=== PATIENT | male | born 1940 | race Caucasian/White ===

== ENCOUNTER → 2023-11-29 11:17 | Outpatient (REF) | payer OTHER, SELFPAY | LOC: DHCBC HW 11:17 | PROVIDERS: ATTENDING PHYSICIAN Internal Medicine Cardiovascular Disease; FAMILY PHYSICIAN Family Medicine | DX: I35.0 Nonrheumatic aortic (valve) stenosis (principal) | CPT/HCPCS: 93306 ==

== ENCOUNTER → 2023-12-14 13:48 | Outpatient (REF) | payer OTHER, SELFPAY | LOC: PAVMRI 13:48 | PROVIDERS: ATTENDING PHYSICIAN Student in an Organized Health Care Education/Training Program; FAMILY PHYSICIAN Family Medicine | DX: M54.14 Radiculopathy, thoracic region (principal) | CPT/HCPCS: 72146 ==

== ENCOUNTER 2024-03-04 10:53 | Inpatient (IN) | payer OTHER, SELFPAY ==
[2024-03-01] VITALS (11 sets, daily range): BP systolic 133–192; BP diastolic 67–109; BMI 28.3
--- NOTE | 2024-03-01 11:06 | ED.GENMED ---
History of Present Illness
General
Chief Complaint: Chest Pain
Source: patient and spouse
Time Seen by Provider: 03/01/24 10:54
Travel History
Have you had any contact with someone who has COVID-19?: No
Do you have any symptoms of coronavirus? Fever > 100 degrees, chills, cough, shortness of breath, sore throat, loss of taste or smell, muscle aches, or headache?: No
History of Present Illness
History of Present Illness:
83-year-old male with past medical history of atrial fibrillation, hypertension, hyperlipidemia, CAD, diabetes presenting the emergency department for evaluation of chest discomfort/pain and shortness of breath that have been ongoing intermittently
since yesterday, symptoms do seem to be worse with exertion with patient stating that yesterday evening he was walking from his downstairs to upstairs and by the time he got to the top of the stairs noticed some left-sided chest discomfort and
shortness of breath. Symptoms resolved after a few minutes. This morning patient was making breakfast when the pain started again but this time on the right side of his chest so patient decided to take his blood pressure and noticed the systolic
was greater than 200. Patient did take his glimepiride and Eliquis this morning and then came to the ER for further evaluation. Patient follows with muck miner Dr. Victor but states has not seen him yet since the long term of his previous
muck miner at that practice. Patient and note that patient was recommended to have a aortic valve replaced but patient states that he has been putting this off for unknown reasons.
Past History
Past History
ED Past Medical History: CAD, GERD (Hiatal hernia), HTN, Hypercholesterolemia, NIDDM, Valvular disease and Other (Salmonella, ulcers)
ED Past Surgical History: Cardiac (CABG 1993, angioplasty with stents October 2004. Cardiac catheter 2008, medical management), Cholecystectomy (Laparoscopic cholecystectomy December 2010) and Other
Social History
Tobacco: Non-smoker
Alcohol: None
Drug: None
Personal:
Living: with family
Family History
Family History: Diabetes and Hypertension; Negative Sudden
Review of Systems
Review of Systems
All Other Systems: ROS reviewed and negative except as documented in HPI and ROS
Phy Exam
Physical Exam
Physical Exam:
GENERAL: Alert , in no apparent distress
EYE: conjunctiva clear
NECK: Supple
ENT: o/p clr, mmm.
CARDIAC: Regular rate and rhythm, harsh systolic murmur at the right second intercostal space
LUNGS: Clear breath sounds bilaterally, no acute respiratory distress, no wheezes/rales/rhonchi
NEUROLOGICAL: Alert and oriented
SKIN: Warm and dry, skin intact.
MUSCULOSKELETAL: well perfused. No edema
PSYCH: Normal and appropriate interaction.
Scores
Heart Failure Risk
Heart Failure Risk Score: Not Applicable
Heart Score for Chest Pain Patients
STEMI patient?: Not applicable
Withdrawal Assessment of Alcohol
Withdrawal Assessment Completed?: Not applicable
Course
Orders/Labs/Results
Orders:
Orders
03/01/24 10:00
ECG [Electrocardiogram (*1)] Urgent
Reason for Study: Chest Pain
EKG- Treatment ONCE
03/01/24 10:57
Electrocardiogram (*1) Urgent
Reason for Study: Chest Pain
Cardiac Monitoring- Treatment ONCE
EKG- Treatment ONCE
IV Insert/Care/Rem.- Treatment PRN
03/01/24 10:58
Basic Metabolic Panel Urgent
Complete Blood Count/With Diff Urgent
NT-proBNP Urgent
Comment: ADD ON
Troponin I Urgent
03/01/24 11:05
Add On- LAB Urgent
Tests Added?: BNP
CR Chest - 2 Views Urgent
Comment:
Reason For Exam: chest pain, SOB
03/01/24 13:14
Admit/Transfer Patient As Directed
Co-Sign Provider:
Level of Care: Observation services
Assign to:: Telemetry
Physician / Group: Pratik
Diagnosis: SOB
Reason for Telemetry: Chest Pain syndromes
Date to Stop Telemetry: 03/03/24
Time to Stop Telemetry: 11:00
03/01/24 20:00
Apixaban [Eliquis] 2.5 mg PO BID
03/03/24 11:00
DC Protocol for Telemetry ONCE
Abnormal Lab Results
03/01/24
10:58
MCH 31.2 H pg
(27.0-31.0)
Sodium 134 L mmol/L
(135-145)
Glucose 176 H mg/dl
(70-99)
03/01/24 10:58
03/01/24 10:58
Vital Signs
Initial and Last Documented VS:
Initial Vital Signs
Temp Pulse Resp BP Pulse Ox
97.8 F 70 20 192/95 97
03/01/24 10:04 03/01/24 10:04 03/01/24 10:04 03/01/24 10:04 03/01/24 10:04
Last Documented Vital Signs
Temp Pulse Resp BP Pulse Ox
97.7 F 73 18 184/87 97
03/01/24 14:24 03/01/24 14:24 03/01/24 14:24 03/01/24 14:24 03/01/24 14:24
MDM/Problems Addressed
Differential Diagnosis Includes:
ACS, valvular dysfunction, CHF, hypertensive urgency
MDM/Problems Addressed:
83-year-old male presenting to the emergency department for evaluation of waxing and waning chest discomfort and shortness of breath. Last night patient states he was most concerned when he went up his stairs and symptoms got worse but resolved
after a few minutes. Symptoms again restarted this morning with patient noting his blood pressure was significantly elevated. Blood pressure is improved here however still elevated. Patient states that presently he is asymptomatic. Patient with
known CAD and multiple previous stents. There is also known aortic insufficiency with patient being recommended to have a TAVR but has put this off. I suspect 1 of these 2 diagnoses are the likely cause of patient's symptoms today.
Chronic conditions affecting care: CAD and Other (Valvular disease)
Acute Exacerbation and/or Progression of Chronic Illness: CAD and Other (Valvular disease)
*Pulse Oximetry
Patient hypoxic: no
*EKG
Interpreted by ED Provider?: Yes
Comparison EKG: changes noted
Heart Rate: 66
Rate: normal
Rhythm: sinus
[place]: normal axis
Ischemia: T-wave inversion (lateral leads)
*Production [place] Interpretation
Rate: normal
Rhythm: sinus
*Critical Care Note
Total Time (30-74mins, 75-104mins- exclusive of procedures): Not Applicable
Data Reviewed
Review of Other/Old Records Reveals: Labs, Records and Discharge Summary
Source: patient, records and spouse
Comment
Comment:
Patient had echocardiogram in November of this year which showed normal left ventricular systolic function, left ventricular EF 55%. Severe aortic stenosis and overall unchanged from echocardiogram done in April 2023.
Patient Management
Discussion with other providers: Hospitalist and Road Traffic Controller
Escalation/DeEscalation of care consider admission/obs:
Patient's labs and imaging are mostly reassuring however given his age combined with his past medical history I do feel it would be best for patient to be admitted for further testing and evaluation with cardiology. Cardiology team is aware and
will consult. Hospitalist team accepts for continued evaluation and treatment.
ED Attending Note
-
Portions of this chart may have been created with voice recognition software.� Occasional wrong word or��sound alike� substitutions may have occurred due to the inherent limitations of voice recognition software.
Discharge Plan
Departure
Patient Disposition: Admit
Date of Disposition: 03/01/24
Time of Disposition: 11:57
Presentation/result/management discussed w/ accepting MD/DO: Hospitalist
Discharge Problem:
Chest pain, Shortness of breath, Aortic stenosis
Interventions
Interventions:
*Risk Screen - Suicide Last Done: 03/01/24 14:09
*General Assessment Last Done: 03/01/24 14:09
*Neglect/Abuse Screening Last Done: 03/01/24 14:09
ED- Fall Risk Assessment Last Done: 03/01/24 14:09
*ED COVID-19 Vaccine History Last Done: 03/01/24 10:04
*Nursing Disposition Last Done: 03/01/24 14:09
ED- Cardiac Assessment Last Done: 03/01/24 11:24
[2024-03-01 11:10] LABS: % Basophils 0.9 % (0-2); % Eosinophils 2.8 % (0-6); % Immature Granulocytes 0.3 % (0-0.5); % Lymphocytes 29.5 % (20.5-51.1); % Monocytes 7.8 % (1.7-9.3); % Neutrophils 58.7 % (42.2-75.2); Absolute Basophils 0.1 10^3/uL (0-0.2); Absolute Eosinophils 0.2 10^3/uL (0-0.7); Absolute Monocytes 0.5 10^3/uL (0.1-0.6); Hematocrit 44.1 % (39.0-52.0); Hemoglobin 15.6 g/dL (13.0-18.0); Mean Corp Hgb Conc. 35.4 g/dL (33.0-37.0); Mean Corpuscular Hgb 31.2 pg (27.0-31.0); Mean Corpuscular Volume 88.2 fL (80.0-94.0); Mean Platelet Volume 9.6 fL (7.4-10.4); Nucleated Red Blood Cells % 0 % (-); Platelet Count 192 10^3/uL (130-400); Red Cell Dist. Width 12.6 % (11.5-14.5); White Blood Cell Count 6.8 10^3/uL (4.8-10.8)
[2024-03-01 11:26] LABS: Blood Urea Nitrogen 20 mg/dl (9-20); Calcium 9.9 mg/dl (8.4-10.2); Carbon Dioxide 23 mmol/L (22-30); Chloride 102 mmol/L (98-107); Glucose 176 mg/dl (70-99); Sodium 134 mmol/L (135-145); eGFR 59.26
[2024-03-01 11:34] LABS: NT-proBNP 390 pg/ml; Troponin I < 0.012 ng/ml
--- NOTE | 2024-03-01 13:58 | HPS.HSE ---
Family Physician
-
Family Physician: Linwood Johnson
Chief Complaint
-
Chest pain and shortness of breath
History of Present Illness
Very pleasant 83-year-old male who lives independently at home with his with known history of the severe aortic stenosis, hypertension, coronary artery disease status post CABG and 4 stents with 3 of them already been blocked according to the
patient, presented to the hospital as he has been having chest pain and shortness of breath since yesterday evening.
He said he was in the basement where the zahira working on his air conditioning and after he made it back to the top level from this basement he felt tightness in the center on the left side of the chest and associated with shortness of breath and the
pain was radiating to the left shoulder, was moderate in nature he took sublingual nitro and eventually pain subsided, he did not feel completely back to normal throughout yesterday and evening hours before goes to bed he took another sublingual
nitro but he was able to sleep well, this morning he woke up as usual but shortly after he had breakfast and developed severe chest pain this time central and to the right side, moderate in nature associated with shortness of breath worse with any
kind of exertion, lasted quite some time he took sublingual nitro. He measured his blood pressure initially was 210/100 that he sat down he calm himself down and he rechecked a 15-minute later this time 1-2 therefore he woke up his to
come to the hospital.
He said he follow the instruction of his spinning mule operator if it anytime develop chest pain or shortness of breath because of the severe aortic stenosis need to come to the emergency room immediately.
He had an echo done in November 29 and in the process to do another 1 in March by then there will be a decided to do TAVR.
Currently about mild pain in the center of the chest with no shortness of breath, his pressure was elevated earlier but now is 165/77, admits usually runs systolic 1 40-1 60 over diastolic around 70 despite taking his medication.
No fever or chill or cough or congestion, no sick contacts or recent travel.
Given Nitropaste.
Medical History
Past Medical History
Past Medical History: Reports Other
Additional Past Medical History:
Past medical history Reviewed:
Coronary artery disease status post CABG in for stent with blockage of the 3 stent according to the patient
Diabetes mellitus
Hypertension
Severe arctic stenosis
Diverticulosis
Hiatal hernia
Degenerative joint disease
GERD
Basals cell cancer of skin
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
Atrial fibrillation anticoagulated with Eliquis.
Surgical history:
Multiple cardiac cath and stenting
Coronary artery bypass graft
Right inguinal hernia repair
Left nephrectomy
Basal cell carcinoma removal
Social history: Lives at home with a , no smoking alcohol use still independent and plays golf.
Family history: Positive for diabetes, hypertension, colon cancer and coronary artery disease
Past Surgical History: Reports Other
Social History
Alcohol: Other
Family History
Family History: Other
Allergies / Home Medications
Allergies reflects when Allergies were last updated in [facility].
Home Medications with original date entered in [facility]
Allergy/Medication List:
Allergies
Allergy/AdvReac Type Severity Reaction Status Date / Time
acetaminophen Allergy sick Verified 03/01/24 10:05
feeling in
stomach
and chest,
rapid
heart rate
NSAIDS (Non-Steroidal Allergy Pharmacy Verified 03/01/24 10:05
Anti-Inflamma to Review
[Nsaids]
Home Medications
amlodipine 5 mg tablet 5 mg PO DAILY 01/13/11
atenolol 25 mg tablet 37.5 mg PO DAILY 03/11/11
alprazolam 0.25 mg tablet 0.25 mg PO TID 05/05/11
isosorbide mononitrate 60 mg tablet,extended release 24 hr 60 mg PO DAILY 07/17/17
simvastatin 20 mg tablet 20 mg PO HS 07/17/17
apixaban 2.5 mg tablet (Eliquis) 2.5 mg PO BID #60 tabs 09/13/21
aspirin 81 mg tablet,delayed release 81 mg PO DAILY #1 tab 09/13/21
pantoprazole 40 mg tablet,delayed release 40 mg PO DAILY #90 tabs 09/13/21
glimepiride 2 mg tablet 2 mg PO BID 03/01/24
lisinopril 5 mg tablet 5 mg PO BID 03/01/24
nitroglycerin 0.4 mg sublingual tablet 0.4 mg sublingual [id number] PRN chest pain 03/01/24
vitamins A,C,C-qhbf-rljouj 2,148 mcg-113 mg-45 mg-17.4 mg tablet (PreserVision AREDS) 1 tab PO BID 03/01/24
Review of Systems
-
A 12 point ROS was completed and negative except as noted: Yes
Physical Exam
Vital Signs
Vital Signs
Temp Pulse Resp BP Pulse Ox
97.8 F 64 16 179/109 97
03/01/24 10:04 03/01/24 12:00 03/01/24 12:00 03/01/24 11:00 03/01/24 10:04
physical exam:
General: Awake, alert and oriented x3, not in distress and holds appropriate conversation.
HEENT: No active discharge, ecchymosis or bruising, moist lips, tongue and mucous membrane.
Eyes: No discharge or red conjunctiva, no nystagmus, pupils are reactive and equal
Neck:Supple, no JVD no bruit no goiter.
Respiratory: Normal AP contour and diameter, normal chest wall movement, normal respiratory effort, no respiratory distress,
Lungs: Good air entry bilaterally, no wheezing or rhonchi, no rales or crackles
Heart: S1, S2 regular, normal rate, systolic murmur 2-3/6 in upper borders and radiating to neck bilaterally, mild lower extremities edema
Gastrointestinal: Positive bowel sounds, soft, nontender, no guarding or rigidity or organomegaly
Musculoskeletal: , no chest wall abnormality or tenderness. All joints and extremities have good range of motion, no muscle tenderness or any joint swelling or tenderness.
Extremities: pitting edema, good peripheral pulses, good range of motion
Skin: Warm and dry, no ulceration, normal color.
Neurological: Awake, alert and oriented x3, cranial nerve II-XII grossly intact, speech clear and comprehensive, good muscle tone, normal sensory and motor function
Psychiatric: Normal mood, normal thought and judgment, normal affect,
Physical Exam
General: Other
Laboratory Results
-
03/01/24 10:58
03/01/24 10:58
Laboratory Results
Total Bilirubin Cancelled 03/01/24 10:58
AST Cancelled 03/01/24 10:58
ALT Cancelled 03/01/24 10:58
Alkaline Phosphatase Cancelled 03/01/24 10:58
Troponin I < 0.012 ng/ml 03/01/24 10:58
Chest x-ray: Showed no acute cardiopulmonary abnormalities.
EKG: Showed normal sinus rhythm rate around 66, IL 194, QTc 413, evidence of the prior anterior infarct otherwise no acute abnormalities
Data Reviewed
-
Diagnostic Radiology: Image Personally Visualized and interpreted and Discussed with Patient
Medical Tests (Nuc Med, Echo, EKG etc): Image Personally Visualized and interpreted and Discussed with Patient
Lab Data: Labs Reviewed by me
Old Records: Reviewed
Impression/Plan
-
IMPRESSION:
83-year-old male with known history of coronary artery disease, A-fib and severe aortic stenosis presented to the hospital after he been having intermittent chest pain and shortness of breath, with known history of the severe AAS this is chronic
concerning symptom also notes his blood pressure has been elevated.
Chest pain and shortness of breath, with known history of aortic stenosis angina related to aortic stenosis need to be considered
The possibility could be related to hypertensive urgency
Severe aortic stenosis
Mild hyponatremia sodium 134
Diabetes mellitus
A-fib
Coronary artery disease status post CABG and stenting
PLAN:
Cardiac monitoring
Cardiology consult
Follow the cardiac enzyme
Add hydralazine as needed for systolic more than 170 and diastolic more than 100
Give a dose of his blood pressure medications specially amlodipine and atenolol today suspicion was on the high side
Nitropaste every 6 hours
You are anticoagulated with Eliquis, will continue Eliquis we will hold off transition to heparin unless his troponin goes up otherwise defer to cardiology.
Continue aspirin and statin
Monitor blood sugar continue diabetic medication.
Recheck labs
Low threshold condition on discharge: Awake, alert and oriented x3, answer question properly, able to make own decision and take care of activities of daily living, speech clear and comprehensive, continent of the bowel and bladder, ambulate without
program assistant, goes home where lives with the family independently. Transfer to [facility]
All discussed with the patient in detail expressed understanding
CODE STATUS is full code
DVT prophylaxis Eliquis
[2024-03-01 14:45] LABS: Glycohemoglobin (HgbA1c) 7.8 % (4.0-5.6)
[2024-03-01] MEDS: TENORMIN 37.5 MG PO (14:47)
[2024-03-01] MEDS: NORVASC 5 MG PO ×2 (14:48→16:56)
[2024-03-01 15:18] LABS: Troponin I < 0.012 ng/ml
--- NOTE | 2024-03-01 15:33 | CON.CAR ---
Consultation
Consultation Request
Date/Time Consultation Requested: 03/01/24
Date/Time Consultation Performed: 03/01/24
Requesting Provider: Dr. Christie
Performing Provider: Dr. Basurto
Reason for Consultation: CP/SOB
Medical History
-
Chief Complaint: Chest Pain
History of Present Illness:
83-year-old male (previously known to Dr. Bender; transitioning care to Dr. Victor) with severe aortic stenosis, coronary artery disease status-close previous CABG (1993) with multiple subsequent stenting, hypertension, hyperlipidemia, CKD, and
diabetes presenting with progressive chest pain and shortness of breath. The patient states that over the past few days, he has been developing progressive midsternal chest pain, left arm pain with exertion, in addition to dyspnea with exertion.
The patient has had severe aortic stenosis for years, but now appears to be symptomatic.
Past Medical History
Past Medical History: CAD, HTN, Hypercholesterolemia, NIDDM and Renal Failure
Past Surgical History: Cardiac (CABG, recurrent PCI) and Other (Hernia repair)
Social History
Tobacco: Former Smoker
Drug: None
Personal:
Living: With Family
Employment: Retired
Family History
Family History: Reviewed & Not Pertinent
Allergies / Home Medications
Allergy/AdvReac Type Severity Reaction Status Date / Time
acetaminophen Allergy sick Verified 03/01/24 10:05
feeling in
stomach
and chest,
rapid
heart rate
NSAIDS (Non-Steroidal Allergy Pharmacy Verified 03/01/24 10:05
Anti-Inflamma to Review
[Nsaids]
�Medication �Instructions �Recorded �Confirmed �Type
amlodipine 5 mg tablet 5 mg PO DAILY 01/13/11 03/01/24 History
atenolol 25 mg tablet 37.5 mg PO DAILY 03/11/11 03/01/24 History
alprazolam 0.25 mg tablet 0.25 mg PO TID 05/05/11 03/01/24 History
isosorbide mononitrate 60 mg 60 mg PO DAILY 07/17/17 03/01/24 History
tablet,extended release 24 hr
simvastatin 20 mg tablet 20 mg PO HS 07/17/17 03/01/24 History
apixaban 2.5 mg tablet (Eliquis) 2.5 mg PO BID #60 tabs 09/13/21 03/01/24 Rx
aspirin 81 mg tablet,delayed 81 mg PO DAILY #1 tab 09/13/21 03/01/24 Rx
release
pantoprazole 40 mg tablet,delayed 40 mg PO DAILY #90 tabs 09/13/21 03/01/24 Rx
release
glimepiride 2 mg tablet 2 mg PO BID 03/01/24 03/01/24 History
lisinopril 5 mg tablet 5 mg PO BID 03/01/24 03/01/24 History
nitroglycerin 0.4 mg sublingual 0.4 mg sublingual [id number] PRN 03/01/24 03/01/24 History
tablet chest pain
vitamins A,C,Z-iifp-goneys 2,148 1 tab PO BID 03/01/24 03/01/24 History
mcg-113 mg-45 mg-17.4 mg tablet
(PreserVision AREDS)
Review of Systems
-
History Source: Patient
All other systems: Negative unless noted
Physical Exam
Vital Signs
Temp Pulse Resp BP Pulse Ox
97.5 F 70 16 151/83 96
03/01/24 15:27 03/01/24 15:27 03/01/24 15:27 03/01/24 15:27 03/01/24 15:27
Lab Results
03/01/24 10:58
03/01/24 10:58
Troponin I Cancelled 03/01/24 20:14
Ndp-B-Qtlfcvpluxp Pept 390 pg/ml 03/01/24 10:58
Physical Exam
General: No Apparent Distress and Comfortable
HEENT: Normocephalic and Anicteric
Respiratory: Clear
Cardiac: Murmur (4/6 systolic), Peripheral Edema (Trivial) and Other (Normal S1, absent S2)
Breast: N/A
GI: Soft and Non Tender
Rectal: Deferred by Provider
Musculoskeletal: Edema (Trivial)
Skin: Warm and Dry
Neuro: AO x 3
Psych: Calm
Impression / Plan
-
83-year-old male (previously known to Dr. Bender; transitioning care to Dr. Victor) with severe aortic stenosis, coronary artery disease status-close previous CABG (1993) with multiple subsequent stenting, paroxysmal atrial fibrillation (on
Eliquis), hypertension, hyperlipidemia, CKD, NIDDM, and obesity presenting with progressive chest pain and shortness of breath. The patient states that over the past few days, he has been developing progressive midsternal chest pain, left arm pain
with exertion, in addition to dyspnea with exertion. The patient has had severe aortic stenosis for years, but now appears to be symptomatic.
Severe aortic stenosis:
-Now symptomatic.
-Appears to be fairly compensated on examination; will hold off on standing Lasix dose due to underlying renal dysfunction.
-Patient will undergo right and cardiac catheterization on Sunday for coronary and valvular assessment; will likely need TAVR in the very near future.
-NPO after midnight Sunday night.
Coronary artery disease status-close previous CABG (1993) with multiple subsequent stenting:
-Patient will undergo cardiac catheterization as above for evaluation of chest pain.
-Continue aspirin, beta-chay, and statin.
Hypertension:
-Blood pressure was elevated on admission.
-Will hold isosorbide mononitrate for now, as this will worsen aortic transvalvular gradients (by decreasing afterload); hydralazine should be avoided, as it does the same.
-Will increase amlodipine to 10 mg daily.
-Increase atenolol to 50 mg daily, if needed for bladder blood pressure control.
Paroxysmal atrial fibrillation (on Eliquis):
-Will hold Eliquis for cardiac catheterization.
Hyperlipidemia:
-Continue atorvastatin.
CKD:
-Creatinine currently 1.2; monitor renal function.
NIDDM:
-Hemoglobin A1c 7.8%
-Management as per primary team.
Data Reviewed
-
EKG: Report Reviewed by me (Sinus rhythm)
Medical Tests (Nuc Med, Echo etc): Report Reviewed by me (Transthoracic echocardiogram (11/29/2023): LVEF 55%, moderate concentric LVH; severe aortic stenosis, peak/mean gradients 67/40 mmHg, ARNAUD 1.0 cm2.)
Labs: Labs Reviewed by me
Old Records: Reviewed (Cardiology office visit 10/10/2023)
[2024-03-01] MEDS: NITRO-BID 0.5 INCH TOPICAL (16:56)
[2024-03-01] MEDS: AMARYL 2 MG PO (16:56)
[2024-03-01] MEDS: XANAX 0.25 MG PO ×2 (16:57→21:53)
[2024-03-01 17:59] LABS: Troponin I < 0.012 ng/ml
[2024-03-01] MEDS: NOVOLOG FLEXPEN-MODERATE RESISTANCE SC (20:18)
[2024-03-01] MEDS: ZESTRIL 5 MG PO (20:24)
[2024-03-01 21:44] LABS: Glucose - Point of Care 129 mg/dl (70-99)
[2024-03-01] MEDS: LIPITOR 10 MG PO (21:53)
[2024-03-02] VITALS (7 sets, daily range): BP systolic 130–168; BP diastolic 64–75
[2024-03-02] MEDS: NITRO-BID 0.5 INCH TOPICAL ×5 (00:30→22:51)
[2024-03-02 05:54] LABS: Hematocrit 43.7 % (39.0-52.0); Hemoglobin 15.4 g/dL (13.0-18.0); Mean Corp Hgb Conc. 35.2 g/dL (33.0-37.0); Mean Corpuscular Hgb 30.9 pg (27.0-31.0); Mean Corpuscular Volume 87.6 fL (80.0-94.0); Mean Platelet Volume 9.6 fL (7.4-10.4); Platelet Count 192 10^3/uL (130-400); Red Blood Cell Count 4.99 10^6/uL (4.70-6.10); Red Cell Dist. Width 12.6 % (11.5-14.5); White Blood Cell Count 7.5 10^3/uL (4.8-10.8)
[2024-03-02 06:22] LABS: Blood Urea Nitrogen 20 mg/dl (9-20); Calcium 9.9 mg/dl (8.4-10.2); Carbon Dioxide 25 mmol/L (22-30); Chloride 101 mmol/L (98-107); Estimated Creatinine Clearance 39 ml/min; Glucose 109 mg/dl (70-99); Potassium 4.5 mmol/L (3.5-5.1); Sodium 136 mmol/L (135-145); eGFR 53.84
--- NOTE | 2024-03-02 08:19 | W.PN.HOSP.TC ---
Today's Communication/Plan
-
Awaiting left heart right heart cath in a.m.
N.p.o. after midnight
Would hold glimepiride continuous scale coverage as needed
Try to avoid vasodilators in setting of his severe AAS
Assessment / Plan
Assessment / Plan
83-year-old male who lives independently at home with his with known history of the severe aortic stenosis, hypertension, coronary artery disease status post CABG and 4 stents with 3 of them already been blocked according to the patient,
presented to the hospital as he has been having chest pain and shortness of breath since yesterday evening.
He said he was in the basement where the zahira working on his air conditioning and after he made it back to the top level from this basement he felt tightness in the center on the left side of the chest and associated with shortness of breath and the
pain was radiating to the left shoulder, was moderate in nature he took sublingual nitro and eventually pain subsided, he did not feel completely back to normal throughout yesterday and evening hours before goes to bed he took another sublingual
nitro but he was able to sleep well, this morning he woke up as usual but shortly after he had breakfast and developed severe chest pain this time central and to the right side, moderate in nature associated with shortness of breath worse with any
kind of exertion, lasted quite some time he took sublingual nitro. He measured his blood pressure initially was 210/100 that he sat down he calm himself down and he rechecked a 15-minute later this time 1-2 therefore he woke up his to
come to the hospital.
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
He had an echo done in November 29 and in the process to do another 1 in March by then there will be a decided to do TAVR.
Currently about mild pain in the center of the chest with no shortness of breath, his pressure was elevated earlier but now is 165/77, admits usually runs systolic 1 40-1 60 over diastolic around 70 despite taking his medication.
No fever or chill or cough or congestion, no sick contacts or recent travel.
Given Nitropaste.
Chest pain and shortness of breath, with known history of severe aortic stenosis angina related to aortic stenosis need to be considered
The possibility could be related to hypertensive urgency
Severe aortic stenosis
Mild hyponatremia sodium 134
Diabetes mellitus
A-fib presently in sinus rhythm
Coronary artery disease status post CABG and stenting Xs 3
PLAN:
Cardiac monitoring
Follow the cardiac enzyme have remained within normal limits and proBNP at only 300
Avoid vasodilators for BP management as will decrease afterload in setting of severe AAS
Eliquis will be held in anticipation of cardiac intervention Sunday
Continue aspirin and statin
Monitor blood sugar continue diabetic medication./Would now hold glimepiride in preparation for cardiac invention tomorrow and sliding scale coverage to continue
-Will be n.p.o. after midnight in preparation for right and left heart cath
-Cardiology consultation with CBC recently had transition of care from Dr. Weinberg to Dr. Villegas
Recheck labs
Low threshold condition on discharge: Awake, alert and oriented x3, answer question properly, able to make own decision and take care of activities of daily living, speech clear and comprehensive, continent of the bowel and bladder, ambulate without
planning assistant, goes home where lives with the family independently.
All discussed with the patient in detail expressed understanding
CODE STATUS is full code
DVT prophylaxis Eliquis
Anticipated Discharge: Within 24 hours
Subjective/Interval History
-
Date of Service: March 02, 2024
Patient did well overnight although roommate kept him up most the night and his roommate was eventually transferred to ICU no recurrent chest pain has been ambulating
Objective Data
-
Labs:
Laboratory Results
03/02/24
05:22
WBC 7.5
Hgb 15.4
Hct 43.7
Plt Count 192
Sodium 136
Potassium 4.5
Chloride 101
Carbon Dioxide 25
BUN 20
Creatinine 1.3
Glucose 109 H
Calcium 9.9
Vital Signs:
Vital Signs
Temp Pulse Resp BP Pulse Ox
97.7 F 61 20 143/71 93
03/02/24 03:58 03/02/24 05:39 03/02/24 03:58 03/02/24 05:39 03/02/24 03:58
I&O
03/01/24 03/02/24 03/03/24
06:59 06:59 06:59
Output Total 240 / 240
Balance -240 / -240
Review of Systems
-
History Source: Patient
Respiratory: Reports No Symptoms
Cardiac: Reports No Symptoms
Abdomen/GI: Reports No Symptoms
Physical Exam
-
General: Well Developed
HEENT: Normocephalic
Respiratory: Clear to Auscultation
Cardiac: Regular Rhythm, S1/S2 and Murmur
Psych: Calm
Data Reviewed
-
Total Time Spent with Patient (in minutes): 56
Labs: Labs Reviewed by me (A1c hemoglobin 7,8/proBNP of only 390 troponin was normal/blood sugar 129)
[2024-03-02 08:23] LABS: Glucose - Point of Care 147 mg/dl (70-99)
[2024-03-02] MEDS: NOVOLOG FLEXPEN-MODERATE RESISTANCE SC (08:23)
[2024-03-02] MEDS: TENORMIN 37.5 MG PO (08:24)
[2024-03-02] MEDS: AMARYL 2 MG PO (08:26)
[2024-03-02] MEDS: PROTONIX 40 MG PO (08:26)
[2024-03-02] MEDS: NORVASC 10 MG PO (08:26)
[2024-03-02] MEDS: XANAX 0.25 MG PO ×3 (08:26→22:48)
[2024-03-02] MEDS: ASPIR LOW (ENTERIC COATED) 81 MG PO (08:26)
[2024-03-02] MEDS: ZESTRIL 5 MG PO ×2 (08:26→20:36)
--- NOTE | 2024-03-02 10:53 | CM ---
Reviewed chart, met with patient to obtain information for assessment. Patient stated that he lives with his in a single one story home with a loft, in [place]. There is one step to enter.
Patient described himself as independent with his ADLs, personal care, dressing and bathing, toileting and ambulation. He denied use of an assistive device or any DME in general. 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
drives so he can get to appointments and does his own shopping. Patient shared that he plays golf with friends twice a week.
Patient has never had VN services. He has not been to a SNF nor does he want to or feel he needs to go. Patient described his as supportive and stated that he has been for 63 years.
Patient feels that he is at his baseline level of functioning and would like to return home when stable for discharge.
Obs letter signed, explained, and is on chart.
Plan: Case management will continue to follow and assist with discharge planning. Patient will return home at discharge with his .
[2024-03-02 12:03] LABS: Glucose - Point of Care 246 mg/dl (70-99)
[2024-03-02] MEDS: NOVOLOG FLEXPEN-MODERATE RESISTANCE 3 UNITS SC (12:22)
--- NOTE | 2024-03-02 13:32 | W.PN.CD ---
Today's Communication / Plan
-
-Patient will undergo right and cardiac catheterization tomorrow for coronary and valvular assessment; will likely need TAVR in the very near future.
-NPO after midnight tonight.
-Holding Eliquis for cardiac catheterization.
Impression / Plan
-
83-year-old male (previously known to Dr. Bender; transitioning care to Dr. Victor) with severe aortic stenosis, coronary artery disease status-close previous CABG (1993) with multiple subsequent stenting, paroxysmal atrial fibrillation (on
Eliquis), hypertension, hyperlipidemia, CKD, NIDDM, and obesity presenting with progressive chest pain and shortness of breath. The patient states that over the past few days, he has been developing progressive midsternal chest pain, left arm pain
with exertion, in addition to dyspnea with exertion. The patient has had severe aortic stenosis for years, but now appears to be symptomatic.
Symptomatic severe aortic stenosis:
-Fairly compensated on examination currently; holding off on standing Lasix dose due to underlying renal dysfunction.
-Patient will undergo right and cardiac catheterization tomorrow for coronary and valvular assessment; will likely need TAVR in the very near future.
-NPO after midnight tonight.
Coronary artery disease status-close previous CABG (1993) with multiple subsequent stenting:
-Patient will undergo cardiac catheterization as above for evaluation of chest pain.
-Continue aspirin, beta-chay, and statin.
Hypertension:
-Blood pressure was elevated on admission.
-Holding isosorbide mononitrate for now, as this will worsen aortic transvalvular gradients (by decreasing afterload); hydralazine should be avoided, as it does the same.
-Amlodipine was increased yesterday to 10 mg daily .
-Increase atenolol to 50 mg daily, if needed for bladder blood pressure control.
Paroxysmal atrial fibrillation (on Eliquis):
-Holding Eliquis for cardiac catheterization.
Hyperlipidemia:
-Continue atorvastatin.
CKD:
-Creatinine currently 1.3; continue to monitor renal function.
NIDDM:
-Hemoglobin A1c 7.8%
-Management as per primary team.
Physical Exam
Vital Signs/Labs
Vital Signs
Temp Pulse Resp BP Pulse Ox
97.8 F 63 18 168/71 96
03/02/24 11:00 03/02/24 12:19 03/02/24 11:00 03/02/24 12:19 03/02/24 11:00
03/01/24 03/02/24 03/03/24
06:59 06:59 06:59
Actual Weight 81.902 kg
03/02/24 05:22
03/02/24 05:22
03/01/24
10:58
Way-Q-Pqgzsnjijuk Pept 390
LAB Results
03/01/24 03/01/24 03/01/24
10:58 14:42 14:42
Troponin I < 0.012 Cancelled < 0.012
03/01/24 03/01/24 03/01/24
14:42 14:42 17:25
Troponin I Cancelled Cancelled < 0.012
03/01/24
20:14
Troponin I Cancelled
Physical Exam
Constitutional: No acute distress and Comfortable
EENT: Anicteric
Cardiovascular: Rhythm & rate is regular, Pedal edema present (Trivial), Systolic murmur present (4/6) and Other (Normal S1, absent S2)
Respiratory: Respiratory effort normal and Lungs clear to auscul.
GI: Soft
Neuro/Psych: AO x 3
Other: Skin (Warm, dry, intact)
Data Reviewed
-
Date of Service: March 02, 2024
EKG: Tracing Personally Visualized and interpreted (Telemetry: Sinus rhythm)
Labs: Labs Reviewed by me
[2024-03-02 16:31] LABS: Glucose - Point of Care 192 mg/dl (70-99)
[2024-03-02] MEDS: NOVOLOG FLEXPEN-MODERATE RESISTANCE 1 UNITS SC (17:58)
[2024-03-02 21:53] LABS: Glucose - Point of Care 218 mg/dl (70-99)
[2024-03-02] MEDS: LIPITOR 10 MG PO (22:48)
[2024-03-03] VITALS (13 sets, daily range): BP systolic 140–189; BP diastolic 64–79; BMI 28.0
[2024-03-03] MEDS: NITRO-BID 0.5 INCH TOPICAL (05:45)
[2024-03-03 07:06] LABS: Glucose - Point of Care 167 mg/dl (70-99)
[2024-03-03] MEDS: TENORMIN 37.5 MG PO (07:35)
[2024-03-03] MEDS: NORVASC 10 MG PO (07:35)
[2024-03-03] MEDS: PROTONIX 40 MG PO (07:35)
[2024-03-03] MEDS: ZESTRIL 5 MG PO (07:35)
[2024-03-03] MEDS: ASPIR LOW (ENTERIC COATED) 81 MG PO (07:35)
[2024-03-03] MEDS: XANAX 0.25 MG PO ×3 (07:35→21:15)
--- NOTE | 2024-03-03 08:37 | W.PN.CD ---
Today's Communication / Plan
-
Cardiac catheterization today for chest pain, known CAD and TAVR workup.
Impression / Plan
-
Impression/Plan: 83 y/o male with CAD s/p CABG (patent MCKEE to LAD and SVG to OM2 with PCI in 09/13/2021, occluded SVG to RCA, occluded SVG to Diagonal), PAF on apixaban, HTN, HLD, solitary kidney (baseline Cr around 1.3) and severe aortic valve
stenosis admitted with chest pain/shortness in breath.
#Symptomatic severe aortic stenosis
-Chronic, progressive.
-Mean gradient 40 mmHg on TTE from November 2023.
-Starting TAVR workup.
#Coronary artery disease
-Status-close previous CABG (MCKEE to LAD, SVG to Diagonal, SVG to OM2, SVG to RCA, 1993).
-Prior cardiac catheterization showed occlusion of the SVG-Diag, SVG-RCA grafts (prior PCIs), patient MCKEE to LAD and a new, 80% lesion in the proxinal SVG to OM2, s/p Xience [place] 3.25 x 12 (09/13/2021).
-Patient will undergo cardiac catheterization for evaluation of chest pain and as a preamble to TAVR.
-Continue aspirin, beta-chay, and statin.
#Hypertension:
-Blood pressure was elevated on admission (190's).
-Amlodipine increased to 10 mg daily.
-We will adjust medications post cardiac catheterization (lisinopril).
#Paroxysmal atrial fibrillation
-Chronic, stable.
-Rate control with atenlolol.
-CHADS2-Vasc = 5 (HTN, Age x2, DM, Vascular Disease).
-Holding apixaban for cardiac catheterization.
#Hyperlipidemia:
-Chronic, stable.
-Goal LDL < 55.
-Continue atorvastatin.
#CKD/solitary kidney
-S/P left nephrectomy.
-Creatinine currently 1.3; continue to monitor renal function.
#NIDDM:
-Chronic, stable.
-Hemoglobin A1c 7.8%
-Management as per primary team.
Subjective/Interval History:
Hypertensive to 140-150's.
Feels well.
DATA:
TTE, 11/29/2023:
CONCLUSIONS
Normal left ventricular systolic function. Left ventricular ejection fraction
is 55%.
Moderate concentric left ventricular hypertrophy.
Severe aortic stenosis.
No significant change since the prior study of April 2023.
Cardiac Catheterization/PCI, 09/13/2021:
CORONARY ANGIOGRAPHY
Dominance: Right
Left Main: Normal
LAD: The LAD is occluded distal to the takeoff of the first septal veterinary virologist. There are bridging collaterals to a moderate-sized diagonal branch. The left internal mammary graft supplies the mid and distal LAD and there is mild noncritical
disease distal to the touchdown site
Circumflex: The circumflex is 50% proximal to mid stenosis. OM1 is small and severely diseased. OM 2 is occluded at its origin. OM 2 fills via a patent but diseased vein graft. There is one small left posterolateral branch coming off the
circumflex and there are left to left collaterals to the distal RCA territory
RCA: The RCA is proximally occluded. There are bridging collaterals to the distal RCA territory which is diffusely and severely diseased.
Bypass grafts:
1. The MCKEE-LAD graft is widely patent with excellent runoff
2. The SVG-RCA is known to be occluded and was not injected
3. The SVG-diagonal branch is known to be occluded and was not injected
4. The SVG-OM2 is patent with focal 80% proximal stenosis and 30% mid stenosis. Compared with the prior study from 2015, the 80% proximal lesion is new and the 30% mid lesion is similar in appearance
CONCLUSIONS
1: Moderate aortic stenosis with mean gradient 24 mmHg.
2: Systemic hypertension.
3. Severe [place] triple-vessel CAD as described with patent MCKEE-LAD and patent SVG-OM2 bypass grafts.
4. Compared to 2016, there is new 80% stenosis in the proximal segment of the SVG-OM2 which was successfully stented with a 3.25 x 12 Xience GRETEL postdilated with a 3.5 mm noncompliant balloon.
5. Recommend femoral approach for future procedures as intervening on the SVG-OM2 was technically challenging from the left radial artery approach.
Physical Exam
Vital Signs/Labs
Vital Signs
Temp Pulse Resp BP Pulse Ox
36.4 C 56 16 151/72 97
03/03/24 07:30 03/03/24 07:30 03/03/24 07:30 03/03/24 07:30 03/03/24 07:30
03/01/24 03/02/24 03/03/24
11:59 11:59 11:59
Actual Weight 81.902 kg 81.102 kg
03/02/24 05:22
03/02/24 05:22
03/01/24
10:58
Mza-R-Wllddxjvdrk Pept 390
LAB Results
03/01/24 03/01/24 03/01/24
10:58 14:42 14:42
Troponin I < 0.012 Cancelled < 0.012
03/01/24 03/01/24 03/01/24
14:42 14:42 17:25
Troponin I Cancelled Cancelled < 0.012
03/01/24
20:14
Troponin I Cancelled
Physical Exam
Constitutional: No acute distress and Comfortable
EENT: Anicteric and Moist mucous membranes
Cardiovascular: Rhythm & rate is regular, Pedal edema is absent, JVD pressure is normal, Systolic murmur present and S1S2 is normal
Respiratory: Respiratory effort normal, Lungs clear to auscul., Wheeze Absent, Crackles Absent and Rhonchi Absent
GI: Soft, Distention absent, Flat, Non tender and Normal bowel sounds
Neuro/Psych: AO x 3
Data Reviewed
-
Date of Service: March 03, 2024
Medical Decision Making: Reviewed Test Results, Independent Historian Assessment and Test Interpretation
EKG: Tracing Personally Visualized and interpreted and Report Reviewed by me
Echo: Tracing Personally Visualized and interpreted and Report Reviewed by me
X-Ray/CT/US/MRI/NUC/PET: Image Personally Visualized and interpreted and Report Reviewed by me
Medical Tests (PFT, Pathology etc): Image Personally Visualized and interpreted and Report Reviewed by me
Labs: Labs Reviewed by me
[2024-03-03] MEDS: NOVOLOG FLEXPEN-MODERATE RESISTANCE SC ×2 (09:03→11:18)
--- NOTE | 2024-03-03 09:45 | ITS.CL.CATH ---
Terminal Press Operator - Catheterization
Cardiac Catheterization
Procedure Report:
CARDIAC CATHETERIZATION REPORT
Date of Procedure: 03/03/2024
Referring: Keagan Basurto M.D.
Indication: Severe aortic valve stenosis.
PROCEDURE:
1. Right heart catheterization.
2. Coronary angiography.
3. Bypass angiography.
ACCESS:
6 [place] left radial artery.
5 [place] right antecubital vein.
CATHETERS:
1. 5 [place] balloon wedge.
2. 5 [place] TY.
3. 5 [place] JL 4.
4. 5 [place] JR4.
HEMODYNAMIC DATA
Weight (kg): 81.1
AO (s/d/x mmHg): 158/62/109
LV (s/x mmHg): Not obtained.
PCWP (a/v/x mmHg): 17/18/13
PA (s/d/x mmHg): 33/15/21
RV (s/x mmHg): 33/8
RA (a/v/x mmHg): 10/08/
SVC SvO2 (%): 68.7
PA SvO2 (%): 67.9
SaO2 (%): 94.6
Hbg (g/dL): 15.3
CO (L/min): 3.84
CI (L/min/m2): 1.99
TPG (mmHg): 8
PVR ([place] Units): 2.08
SVR (dynes*seconds*cm^-5): 2082
AVO2 Diff (Volume %): 5.56
AV gradient (x, mmHg): Not obtained.
AV area (cm2): Not obtained.
LEFT VENTRICULOGRAPHY: Not performed.
CORONARY ANGIOGRAPHY
Dominance: Right.
Left Main: Normal size, bifurcating vessel. The vessel is diffusely diseased.
LAD: Normal size, densely calcified vessel with diffuse disease in the proximal margin. The vessel is chronically totally occluded after the origin of its first diagonal. The mid and distal vessel supplied by patent MCKEE graft.
Ramus: Congenitally absent.
Circumflex: Normal size, nondominant vessel. There is a 50% lesion in the proximal AV groove vessel. The vessel gives rise to several obtuse marginals, though they appear to be flush occluded. The obtuse marginal supplied by patent vein graft.
RCA: Normal size, dominant vessel. The vessel is chronically totally occluded at the beginning of its midportion, reconstituting in its distal margin, immediately after the crux. The distal vessel is supplied by epicardial collaterals from an
acute marginal.
BYPASS GRAFT ANGIOGRAPHY
MCKEE to LAD: Large size graft with end-to-side anastomosis to the mid LAD. There is no evidence of stenosis or graft degeneration.
SVG to diagonal: Occluded at its origin.
SVG to OM: Normal size graft with end-to-side anastomosis to the obtuse marginal. A patent stent is visible in the proximal graft margin with no evidence of in-stent restenosis.
SVG to RCA: Occluded at its origin.
INTERVENTIONS
None.
Closure Device: Vascular band for the left radial artery, manual pressure for the right antecubital vein.
Radiation dose (mGy): 490.64
DAP (cm2.Gy): 48.6571
Fluoroscopy time (minutes): 7.8
Sedation time (minutes): 13
CONCLUSIONS:
1. Right dominant circulation with a diffusely diseased left main, chronic total occlusion of the mid LAD, 50% lesion in the proximal AV groove circumflex with flush occluded marginals and a chronic total occlusion of the mid RCA, reconstituting
after the crux with epicardial collaterals from the acute marginal.
2. Status post coronary artery bypass grafting with a patent MCKEE to LAD, patent SVG to OM with a patent stent in the proximal margin, occluded SVG to diagonal and occluded SVG to RCA.
3. Top normal to mildly elevated filling pressures (PCWP = 13 mmHg at 81.8 kg).
4. Depressed cardiac function (cardiac index = 1.99 L/min/m�).
5. Severe aortic valve stenosis by echocardiogram.
RECOMMENDATIONS:
1. Expectant management after cardiac catheterization via left radial and right antecubital approach.
2. Limited weight bearing on the left wrist for one week.
3. Initiate TAVR workup.
Copy to: Tulio Victor M.D., Keagan Basurto M.D., Linwood Johsnon M.D.
Jaxon He DO, FACC, FACP
--- NOTE | 2024-03-03 09:49 | W.PN.HOSP.TC ---
Today's Communication/Plan
-
Cardiac cath today
Losartan increased, 1x dose of Enalaprilat given for high blood pressure
Eliquis resumed
TAVR eval
Assessment / Plan
Assessment / Plan
Physical Exam
General: Well Developed
HEENT: Normocephalic
Respiratory: Clear to Auscultation
Cardiac: Regular Rhythm, S1/S2 and Murmur
Abdomen: Positive bowel sounds. Soft and nontender.
Psych: Calm
Assessment/Plan
83-year-old male who lives independently at home with his with known history of the severe aortic stenosis, hypertension, coronary artery disease status post CABG and 4 stents with 3 of them already been blocked according to the patient,
presented to the hospital as he has been having chest pain and shortness of breath. He said he was in the basement where the zahira working on his air conditioning and after he made it back to the top level from this basement he felt tightness in the
center on the left side of the chest and associated with shortness of breath and the pain was radiating to the left shoulder, was moderate in nature he took sublingual nitro and eventually pain subsided, he did not feel completely back to normal
throughout the day before presentation, and evening hours before going to bed he took another sublingual nitro but he was able to sleep well, he then woke up as usual but shortly after, he had breakfast and developed severe chest pain this time
central and to the right side, moderate in nature associated with shortness of breath worse with any kind of exertion, lasted quite some time he took sublingual nitro. He measured his blood pressure and initially it was noted to be 210/100 mmHg.
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
He had an echo done in November 29 and in the process to do another 1 in March by then there will be a decided to do TAVR.
Given Nitropaste.
Symptomatic Severe aortic stenosis
- TAVR evaluation
- Appreciate cardiology
- Cardiac cath took place on March 03, 2024 -- occlusion and disease noted in coronary arteries
- Expectant management after cardiac catheterization via left radial and right antecubital approach.
- Limited weight bearing on the left wrist for one week from March 03, 2024
- Continued TAVR evaluation
Coronary artery disease status post CABG and stenting Xs 3
- Continue aspirin, beta-chay, and statin.
- Cardiac cath for chest pain as well as for anticipation of TAVR
Mild hyponatremia - RESOLVED
Diabetes mellitus
- Insulin Sliding Scale
- Hold home Glimepiride
A-fib presently in sinus rhythm - PAF on apixaban
- Atenolol
- Resume Eliquis (was held for cardiac cath)
Hypertension
Uncontrolled Hypertension
- Blood pressure was high into the 200s prior to arrival
- Amlodipine was increased to 10 mg daily
- Losartan increased to 20 mg daily
- Enalaprilat 1x dose on March 03, 2024
Hyperlipidemia
- Continue Atorvastatin
Chronic Kidney Disease/Solitary kidney (baseline Cr around 1.3)
-S/P left nephrectomy.
-Creatinine currently 1.3; continue to monitor renal function.
CODE STATUS is full code
DVT prophylaxis Eliquis
Anticipated Discharge: > 48 hours
Subjective/Interval History
-
Date of Service: March 03, 2024
Patient was seen and examined. He denied any chest pain, headache, numbness, tingling or any other symptoms or complaints.
Objective Data
-
Vital Signs:
Vital Signs
Temp Pulse Resp BP Pulse Ox
97.6 F 56 16 151/72 97
03/03/24 07:30 03/03/24 07:30 03/03/24 07:30 03/03/24 07:30 03/03/24 07:30
I&O
03/02/24 03/03/2424
06:59 06:59 06:59
Intake Total 1140 / 1140
Output Total 240 / 240
Balance -240 / -240 1140 / 1140
[2024-03-03 11:10] LABS: Glucose - Point of Care 159 mg/dl (70-99)
[2024-03-03] MEDS: NOVOLOG FLEXPEN-MODERATE RESISTANCE 1 UNITS SC (11:15)
--- NOTE | 2024-03-03 12:42 | CONSULT.STRU ---
Consultation
-
Date/Time Consultation Requested: 03/03/2024 1045
Date/Time Consultation Performed: 03/03/2024 1130
Requesting Provider: Dr. Jaxon He
Performing Provider: JENA Nesbitt
Reason for Consultation: Aortic Stenosis/ TAVR evaluation
Patient History
Physicians
Family Physician: Linwood Johnson
Outpatient Material Expeditor: Tulio Victor
Primary Material Expeditor: Tulio Victor
History of Present Illness
Mr. Celis is a very pleasant 83yo male with a significant cardiac history including previous CABG and PCIs as well as a-fib, severe aortic stenosis and hypertension. On Sunday he felt winded after walking up a flight of stairs and had some chest
tightness. He took a NTG SL and it improved. He went to bed but when he woke up in the morning he again experienced chest pain and SOB that became worse with minimal exertion. At that point he had his take him to the ER for evaluation. He has
been following with Dr. Bender for his CAD and with his last echo in 2023. It was notable for EF 55%, PG/M/40, ARNAUD 1.0, trace AI, mild MR. After some discussion, he has realized he has had progressive fatigue, to the point he has given
up golf which he used to play twice a week. This may be related to his . He was scheduled for a follow up echo and appt with Dr. Victor in March. He underwent cardiac cath today with Dr. He which demonstrated right dominant circulation with a
diffusely diseased left main, chronic total occlusion of the mid LAD, 50% lesion in the proximal AV groove circumflex with flush occluded marginals and a chronic total occlusion of the mid RCA, reconstituting after the crux with epicardial
collaterals from the acute marginal. Status post coronary artery bypass grafting with a patent MCKEE to LAD, patent SVG to OM with a patent stent in the proximal margin, occluded SVG to diagonal and occluded SVG to RCA. Top normal to mildly elevated
filling pressures (PCWP = 13 mmHg at 81.8 kg). Depressed cardiac function (cardiac index = 1.99 L/min/m�).
Reviewed the pathophysiology of aortic stenosis with the patient and his . Explained the treatment options of SAVR and TAVR. Explained the TAVR evaluation process including follow up BMP, CT TAVR scan, CT surgery consult and Heart Team
discussion. Provided with script for BMP next week, script and appointment for CT TAVR, Consult appointment with Dr. Wright and a copy of the TAVR education booklet with contact information. Allowed for and answered questions.
Past Medical History
Past Medical History: Angina, Atrial Fib, CAD, Cancer (Urothelial cell carcinoma left ureter/renal pelvis, Basal cell cancer), HERNANDEZ, GERD, HTN, Hypercholesterolemia, NIDDM and Other (hiatal hernia, diverticulosis, DJD)
Past Surgical History
Past Surgical History: Abdominal (right inguinal hernia repair), CABG (1993 [place]- MCKEE to LAD and intact vein graft to OM2. RCA graft and diag grafts now occluded), PCI/Stent, Urological (left nephrectomy) and Other (basal cell surgery)
Dental History
Dentures
Family History
Mother: at Age and Cause of (ovarian CA)
Father: at Age
Social History
Alcohol: None
Drug: None
Tobacco: Former Smoker
Personal:
Living: With Spouse
Employment: Retired
Allergies
Allergy/AdvReac Type Severity Reaction Status Date / Time
acetaminophen Allergy sick Verified 03/01/24 10:05
feeling in
stomach
and chest,
rapid
heart rate
NSAIDS (Non-Steroidal Allergy Pharmacy Verified 03/01/24 10:05
Anti-Inflamma to Review
[Nsaids]
Home Medications
�Medication �Instructions �Recorded �Confirmed �Type
amlodipine 5 mg tablet 5 mg PO DAILY Blood Pressure 01/13/11 03/01/24 History
atenolol 25 mg tablet 37.5 mg PO DAILY Blood Pressure 03/11/11 03/01/24 History
alprazolam 0.25 mg tablet 0.25 mg PO TID ANXIETY 05/05/11 03/01/24 History
isosorbide mononitrate 60 mg 60 mg PO DAILY Blood Pressure 07/17/17 03/01/24 History
tablet,extended release 24 hr
simvastatin 20 mg tablet 20 mg PO HS High Cholesterol 07/17/17 03/01/24 History
apixaban 2.5 mg tablet (Eliquis) 2.5 mg PO BID #60 tabs 09/13/21 03/01/24 Rx
aspirin 81 mg tablet,delayed 81 mg PO DAILY #1 tab 09/13/21 03/01/24 Rx
release
pantoprazole 40 mg tablet,delayed 40 mg PO DAILY #90 tabs 09/13/21 03/01/24 Rx
release
glimepiride 2 mg tablet 2 mg PO BID Diabetes 03/01/24 03/01/24 History
lisinopril 5 mg tablet 5 mg PO BID Blood Pressure 03/01/24 03/01/24 History
nitroglycerin 0.4 mg sublingual 0.4 mg sublingual [id number] PRN 03/01/24 03/01/24 History
tablet chest pain
vitamins A,C,Q-kydu-bzeezk 2,148 1 tab PO BID Supplement 03/01/24 03/01/24 History
mcg-113 mg-45 mg-17.4 mg tablet
(PreserVision AREDS)
STS%
STS %: 4.12%
Review of Systems
-
History Source: Patient and Family
General: Reports Fatigue
HEENT: Reports No Symptoms
Respiratory: Reports HERNANDEZ
Cardiac: Reports Chest Pain and CAD
Abdomen/GI: Reports Reflux
: Reports No Symptoms
Musculoskeletal: Reports No Symptoms
Skin: Reports No Symptoms
Neurological: Reports No Symptoms
Vascular: Reports No Symptoms
Physical Exam
Vital Signs
Temp 97.6 F 03/03/24 07:30
Temp route: Oral 03/03/24 07:30
Pulse 59 03/03/24 12:00
Rhythm: Sinus bradycardia 03/03/24 08:00
With- Sinus bradycardia 03/01/24 17:00
Resp Rate 18 03/03/24 10:15
Blood pressure 181/69 03/03/24 12:00
Blood pressure extremity used: Left calf 03/03/24 12:00
Position: Lying 03/03/24 12:00
MAP (cuff-Alex Monitor) 96 03/01/24 14:00
SaO2 98 03/03/24 12:00
Oxygen Mode of Delivery Room air 03/03/24 12:00
Acceptable pain level during hospitalization? 0 03/01/24 10:04
Can the patient verbally communicate their pain? Yes 03/03/24 08:00
Actual Weight 81.102 kg 03/03/24 06:00
Body Mass Index (BMI) 28.0 03/03/24 06:00
Labs
03/02/24 05:22
03/02/24 05:22
Hemoglobin A1c Cancelled 03/01/24 14:14
Troponin I Cancelled 03/01/24 20:14
Edc-Y-Rjagbkanbhw Pept 390 pg/ml 03/01/24 10:58
Diagnostic Studies
Echocardiogram 11/29/2023
CONCLUSIONS
Normal left ventricular systolic function. Left ventricular ejection fraction
is 55%.
Moderate concentric left ventricular hypertrophy.
Severe aortic stenosis.
No significant change since the prior study of April 2023.
Indications:
Nonrheumatic aortic (valve) stenosis
Rhythm: Sinus
Portable Study: No
Technical Quality: Fair
Contrast: None
BP: 138 / 68
PROCEDURE
A complete Transthoracic Echocardiogram was performed utilizing two-dimensional
evaluation with color flow and spectral Doppler analysis.
FINDINGS
Left Ventricle
Normal left ventricular chamber size. Moderate concentric left ventricular
hypertrophy. Normal left ventricular systolic function. Left ventricular
ejection fraction is 55%. Diastolic function indeterminate.
Right Ventricle
Normal right ventricular size and function.
Left Atrium
Indexed LA volume is within normal range (15-34 mL/m2).
Right Atrium
Normal right atrium.
Mitral Valve
Thickened mitral valve leaflets. Mitral annular calcification. Mild mitral
regurgitation.
Aortic Valve
Trileaflet aortic valve. Calcified aortic valve. Peak/mean gradients across the
aortic valve are 67/40mmHg. Using an LVOT diameter of 2.0cm. The aortic valve
by the Continuity equation is calculated at 1.0cm2. Trace aortic regurgitation.
Severe aortic stenosis.
Tricuspid Valve
Tricuspid valve opens normally. Trace tricuspid regurgitation. Estimated
pulmonary artery pressure of 25-30 mmHg. Assuming a right atrial pressure of 3
mmHg.
Pulmonic Valve
Pulmonic valve opens normally.
Pericardium\\Pleura
Normal pericardium without effusion.
Aorta
The aortic root is of normal size.
Other Finding
The IVC is of normal size and demonstrates normal respiratory variation.
Interatrial septum is intact with no evidence of shunting by color flow
Doppler.
MEASUREMENTS (Male / Female) Normal Values
2D ECHO
LV Diastolic Diameter PLAX 4.9 cm 4.2 - 5.9 / 3.9 - 5.3 cm
LV Systolic Diameter PLAX 4.2 cm
IVS Diastolic Thickness 1.4 cm 0.6 - 1.0 / 0.6 - 0.9 cm
LVPW Diastolic Thickness 1.3 cm 0.6 - 1.0 / 0.6 - 0.9 cm
LV Relative Wall Thickness 0.6
LVOT Diameter 2.0 cm
LV Ejection Fraction MOD BP 54.5 % >= 55 %
LV Stroke Volume MOD BP 48.0 cm3
LV Cardiac Index MOD BP 1625.8 cm3/min
LV Stroke Volume MOD 4C 43.0 cm3
LV Stroke Volume 4C AL 43.7 cm3
LV Stroke Volume MOD 2C 49.0 cm3
LV Stroke Volume 2C AL 51.1 cm3
LA Area 4C View 16.2 cm2 <= 20 cm2
LA Length 4C 4.7 cm
LA Volume 46.0 cm3 18 - 58 / 22 - 52 cm3
LA Volume Index 26.6 cm3/m2 16 - 34 cm3/m2
Ascending Aorta Diameter 3.4 cm
DOPPLER
AV Peak Velocity 408.0 cm/s
AV Peak Gradient 66.6 mmHg
AV Mean Gradient 40.0 mmHg
AV Velocity Time Integral 91.0 cm
LVOT Peak Velocity 130.0 cm/s
LVOT Peak Gradient 6.8 mmHg
LVOT Velocity Time Integral 29.5 cm
LVOT Stroke Volume 92.7 cm3
LVOT Stroke Volume Index 46.9 ml/m2 empty
LVOT Cardiac Index 3139.0 cm3/min\\m2
AV Area Cont Eq vti 1.0 cm2
AV Area Cont Eq pk 1.0 cm2
Mitral E Point Velocity 78.0 cm/s
Mitral A Point Velocity 137.0 cm/s
Mitral E to A Ratio 0.6
LV E' Lateral Velocity 6.1 cm/s
Mitral E to LV E' Lateral Ratio 12.7
LV E' Septal Velocity 7.3 cm/s
Mitral E to LV E' Septal Ratio 10.6
TR Peak Velocity 250.0 cm/s
TR Peak Gradient 25.0 mmHg
Cardiac Cath 03/03/2024
HEMODYNAMIC DATA
Weight (kg):81.1
AO (s/d/x mmHg): 158/62/109
LV (s/x mmHg): Not obtained.
PCWP (a/v/x mmHg): 1718/13
PA (s/d/x mmHg): /
RV (s/x mmHg): 33/8
RA (a/v/x mmHg):
SVC SvO2 (%):68.7
PA SvO2 (%):67.9
SaO2 (%):94.6
Hbg (g/dL):15.3
CO (L/min): 3.84
CI (L/min/m2): 1.99
TPG (mmHg): 8
PVR (D[place] Santos Units): 2.08
SVR (dynes*seconds*cm^-5): 2082
AVO2 Diff (Volume %): 5.56
AV gradient (x, mmHg):Not obtained.
AV area (cm2):Not obtained.
LEFT VENTRICULOGRAPHY: Not performed.
CORONARY ANGIOGRAPHY
Dominance: Right.
Left Main: Normal size, bifurcating vessel. The vessel is diffusely diseased.
LAD: Normal size, densely calcified vessel with diffuse disease in the proximal margin. The vessel is chronically totally occluded after the origin of its first diagonal. The mid and distal vessel supplied by patent MCKEE graft.
Ramus:Congenitally absent.
Circumflex: Normal size, nondominant vessel. There is a 50% lesion in the proximal AV groove vessel. The vessel gives rise to several obtuse marginals, though they appear to be flush occluded. The obtuse marginal supplied by patent vein graft.
RCA: Normal size, dominant vessel. The vessel is chronically totally occluded at the beginning of its midportion, reconstituting in its distal margin, immediately after the crux. The distal vessel is supplied by epicardial collaterals from an
acute marginal.
BYPASS GRAFT ANGIOGRAPHY
MCKEE to LAD:Large size graft with end-to-side anastomosis to the mid LAD. There is no evidence of stenosis or graft degeneration.
SVG to diagonal:Occluded at its origin.
SVG to OM:Normal size graft with end-to-side anastomosis to the obtuse marginal. A patent stent is visible in the proximal graft margin with no evidence of in-stent restenosis.
SVG to RCA:Occluded at its origin.
INTERVENTIONS
None.
Closure Device: Vascular band for the left radial artery, manual pressure for the right antecubital vein.
Radiation dose (mGy): 490.64
DAP (cm2.Gy): 48.6571
Fluoroscopy time (minutes):7.8
Sedation time (minutes):13
CONCLUSIONS:
1. Right dominant circulation with a diffusely diseased left main, chronic total occlusion of the mid LAD, 50% lesion in the proximal AV groove circumflex with flush occluded marginals and a chronic total occlusion of the mid RCA, reconstituting
after the crux with epicardial collaterals from the acute marginal.
2. Status post coronary artery bypass grafting with a patent MCKEE to LAD, patent SVG to OM with a patent stent in the proximal margin, occluded SVG to diagonal and occluded SVG to RCA.
3. Top normal to mildly elevated filling pressures (PCWP = 13 mmHg at 81.8 kg).
4. Depressed cardiac function (cardiac index = 1.99 L/min/m�).
5. Severe aortic valve stenosis by echocardiogram.
RECOMMENDATIONS:
1. Expectant management after cardiac catheterization via left radial and right antecubital approach.
2. Limited weight bearing on the left wrist for one week.
3. Initiate TAVR workup.
Exam
General: Well Developed, Well Nourished, No Apparent Distress and Comfortable
HEENT: Normocephalic, Moist Mucous Membranes and PERRLA
Neck: Trachea Midline
Respiratory: Clear; Negative Wheezes, Crackles or Rhonchi
Cardiac: S1/S2, Regular Rhythm and Murmur (Grade III/ systolic murmur)
GI: Soft, Non Tender, Non Distended and Normal Bowel Sounds
Rectal: Deferred by Provider
Skin: Warm and Dry
Neuro: AO x 3, No Motor Deficits and Nonfocal/Grossly Intact
Extremities: Negative Lower Level Edema
Lymph: No Lymphadenopathy
Psych: Calm
Assessment / Plan
-
Severe Aortic stenosis:
��������������� Continue evaluation for TAVR
��������������� BMP 03/10/2024 at [facility]
��������������� CT TAVR scan 03/14/2024 at 0930 at
��������������� CT surgery consult with Dr. Wright 03/18/2024
��������������� Heart team discussion at [facility]
Paroxysmal A-fib (C2V: 4)
Will have to hold Eliquis 48 hours prior to TAVR
Rate control
Data Reviewed
-
EKG: Report Reviewed by me
Neon Light Installer: Report Reviewed by me and Discussed with Physician
Echo: Report Reviewed by me
Labs: Labs Reviewed by me
Total Time Spent with Patient (in minutes): 35
[2024-03-03 14:18] LABS: Glucose - Point of Care 211 mg/dl (70-99)
[2024-03-03] MEDS: VASOTEC 0.25 MG IV (14:18)
[2024-03-03] MEDS: NOVOLOG FLEXPEN-MODERATE RESISTANCE 3 UNITS SC ×2 (14:24→18:03)
[2024-03-03 17:15] LABS: Glucose - Point of Care 204 mg/dl (70-99)
[2024-03-03] MEDS: ELIQUIS 5 MG PO (19:46)
[2024-03-03 20:37] LABS: Blood Urea Nitrogen 28 mg/dl (9-20); Calcium 9.7 mg/dl (8.4-10.2); Carbon Dioxide 28 mmol/L (22-30); Chloride 98 mmol/L (98-107); Estimated Creatinine Clearance 36 ml/min; Glucose 152 mg/dl (70-99); Magnesium 1.9 mg/dl (1.6-2.3); Potassium 4.9 mmol/L (3.5-5.1); Sodium 130 mmol/L (135-145); eGFR 49.25
[2024-03-03 21:06] LABS: Glucose - Point of Care 162 mg/dl (70-99)
[2024-03-03] MEDS: LIPITOR 10 MG PO (21:15)
[2024-03-04 00:14] VITALS: BP 171/78
[2024-03-04 03:41] VITALS: BP 171/68
[2024-03-04 06:00] VITALS: BMI 28.1
[2024-03-04 06:35] LABS: Hematocrit 46.4 % (39.0-52.0); Hemoglobin 16.2 g/dL (13.0-18.0); Mean Corp Hgb Conc. 34.9 g/dL (33.0-37.0); Mean Corpuscular Hgb 31.2 pg (27.0-31.0); Mean Corpuscular Volume 89.2 fL (80.0-94.0); Mean Platelet Volume 9.4 fL (7.4-10.4); Platelet Count 205 10^3/uL (130-400); Red Cell Dist. Width 12.7 % (11.5-14.5); White Blood Cell Count 8.4 10^3/uL (4.8-10.8)
[2024-03-04 06:59] LABS: Blood Urea Nitrogen 27 mg/dl (9-20); Calcium 9.9 mg/dl (8.4-10.2); Carbon Dioxide 26 mmol/L (22-30); Chloride 99 mmol/L (98-107); Estimated Creatinine Clearance 36 ml/min; Glucose 143 mg/dl (70-99); Potassium 4.6 mmol/L (3.5-5.1); Sodium 133 mmol/L (135-145); eGFR 49.25
[2024-03-04 07:12] LABS: Glucose - Point of Care 161 mg/dl (70-99)
[2024-03-04] MEDS: ASPIR LOW (ENTERIC COATED) 81 MG PO (07:22)
[2024-03-04] MEDS: ELIQUIS 5 MG PO (07:22)
[2024-03-04] MEDS: TENORMIN 37.5 MG PO (07:22)
[2024-03-04] MEDS: ZESTRIL 20 MG PO (07:22)
[2024-03-04] MEDS: NORVASC 10 MG PO (07:25)
[2024-03-04] MEDS: XANAX 0.25 MG PO ×2 (07:25→15:31)
[2024-03-04] MEDS: PROTONIX 40 MG PO (07:25)
[2024-03-04 07:30] VITALS: BP 176/71
[2024-03-04] MEDS: NOVOLOG FLEXPEN-MODERATE RESISTANCE 1 UNITS SC ×2 (07:31→12:36)
--- NOTE | 2024-03-04 07:49 | W.PN.CD ---
Today's Communication / Plan
-
-Starting TAVR workup. TAVR team visited yesterday. This is an outpatient workup.
-LHC stable
-Amlodipine increased to 10 mg daily.
-add hydralazine prn while amlodipine increased
-restart apixaban
Impression / Plan
-
Impression/Plan: 83 y/o male with CAD s/p CABG (patent MCKEE to LAD and SVG to OM2 with PCI in 09/13/2021, occluded SVG to RCA, occluded SVG to Diagonal), PAF on apixaban, HTN, HLD, solitary kidney (baseline Cr around 1.3) and severe aortic valve
stenosis admitted with chest pain/shortness in breath.
#Symptomatic severe aortic stenosis, which is a class I indication for AVR
-Chronic, progressive.
-Starting TAVR workup. TAVR team visited yesterday.
#Coronary artery disease
-LHC stable
-Continue aspirin, beta-chay, and statin.
#Hypertension:
-Blood pressure was elevated on admission (190's).
-Amlodipine increased to 10 mg daily.
-add hydralazine prn while amlodipine increased
#Paroxysmal atrial fibrillation
-Chronic, stable.
-Rate control with atenolol.
-CHADS2-Vasc = 5 (HTN, Age x2, DM, Vascular Disease).
-restart apixaban
#Hyperlipidemia:
-Chronic, stable.
-Goal LDL < 55.
-Continue atorvastatin.
#CKD/solitary kidney
-S/P left nephrectomy.
-Creatinine currently 1.3; continue to monitor renal function.
#NIDDM:
-Chronic, stable.
-Hemoglobin A1c 7.8%
-Management as per primary team.
# Dispo
- no cardiac contraindication to d/c
- only med change is increase of amlodipine to 10 po qd
- labs - BMP one week
- Follow up
- CT surgery March 18 at 10A
- Dr. Victor on Apr 22 at 1:00
Subjective/Interval History:
CP resolved
No dyspnea
he does not feel hypertension
DATA:
TTE, 11/29/2023:
CONCLUSIONS
Normal left ventricular systolic function. Left ventricular ejection fraction
is 55%.
Moderate concentric left ventricular hypertrophy.
Severe aortic stenosis.
No significant change since the prior study of April 2023.
Right and Left March 03
1. Right dominant circulation with a diffusely diseased left main, chronic total occlusion of the mid LAD, 50% lesion in the proximal AV groove circumflex with flush occluded marginals and a chronic total occlusion of the mid RCA, reconstituting
after the crux with epicardial collaterals from the acute marginal.
2. Status post coronary artery bypass grafting with a patent MCKEE to LAD, patent SVG to OM with a patent stent in the proximal margin, occluded SVG to diagonal and occluded SVG to RCA.
3. Top normal to mildly elevated filling pressures (PCWP = 13 mmHg at 81.8 kg).
4. Depressed cardiac function (cardiac index = 1.99 L/min/m�).
5. Severe aortic valve stenosis by echocardiogram.
Physical Exam
Vital Signs/Labs
Vital Signs
Temp Pulse Resp BP Pulse Ox
36.6 C 58 20 171/68 95
03/04/24 03:41 03/04/24 03:41 03/04/24 03:41 03/04/24 03:41 03/04/24 03:41
03/03/24 03/04/24 03/05/24
06:59 06:59 06:59
Actual Weight 178 lb 12.8 oz 179 lb 5 oz
03/04/24 06:07
03/04/24 06:07
Magnesium 1.9 mg/dl (1.6-2.3) 03/03/24 20:15
03/01/24
10:58
Pqf-[id number]-Pgtheaqjfcr Pept 390
LAB Results
03/01/24 03/01/24 03/01/24
10:58 14:42 14:42
Troponin I < 0.012 Cancelled < 0.012
03/01/24 03/01/24 03/01/24
14:42 14:42 17:25
Troponin I Cancelled Cancelled < 0.012
03/01/24
20:14
Troponin I Cancelled
Physical Exam
Constitutional: No acute distress
EENT: Anicteric and Moist mucous membranes
Cardiovascular: Rhythm & rate is regular, Diastolic murmur absent and Systolic murmur present
Respiratory: Respiratory effort normal
GI: Soft, Distention absent, Normal bowel sounds and Distention present
Neuro/Psych: Alert and Oriented
Data Reviewed
-
Date of Service: March 04, 2024
[2024-03-04 11:00] VITALS: BP 169/72
[2024-03-04 12:35] LABS: Glucose - Point of Care 197 mg/dl (70-99)
--- NOTE | 2024-03-04 13:07 | W.PN.HOSP.TC ---
Today's Communication/Plan
-
Discharge today/tomorrow depending on blood pressure numbers
Assessment / Plan
Assessment / Plan
Physical Exam
General: Well Developed
HEENT: Normocephalic
Respiratory: Clear to Auscultation
Cardiac: Regular Rhythm, S1/S2 and Murmur
Abdomen: Positive bowel sounds. Soft and nontender.
Psych: Calm
Assessment/Plan
83-year-old male who lives independently at home with his with known history of the severe aortic stenosis, hypertension, coronary artery disease status post CABG and 4 stents with 3 of them already been blocked according to the patient,
presented to the hospital as he has been having chest pain and shortness of breath. He said he was in the basement where the zahira working on his air conditioning and after he made it back to the top level from this basement he felt tightness in the
center on the left side of the chest and associated with shortness of breath and the pain was radiating to the left shoulder, was moderate in nature he took sublingual nitro and eventually pain subsided, he did not feel completely back to normal
throughout the day before presentation, and evening hours before going to bed he took another sublingual nitro but he was able to sleep well, he then woke up as usual but shortly after, he had breakfast and developed severe chest pain this time
central and to the right side, moderate in nature associated with shortness of breath worse with any kind of exertion, lasted quite some time he took sublingual nitro. He measured his blood pressure and initially it was noted to be 210/100 mmHg.
He said he follow the instruction of his circle edger if it anytime develop chest pain or shortness of breath because of the severe aortic stenosis need to come to the emergency room immediately.
He had an echo done in November 29 and in the process to do another 1 in March by then there will be a decided to do TAVR.
Given Nitropaste.
Symptomatic Severe aortic stenosis
- TAVR evaluation -- TAVR team visited on 03/03/24 -- outpatient work-up
- Appreciate cardiology
- Cardiac cath took place on March 03, 2024 -- occlusion and disease noted in coronary arteries
- Expectant management after cardiac catheterization via left radial and right antecubital approach.
- Limited weight bearing on the left wrist for one week from March 03, 2024
Coronary artery disease status post CABG and stenting Xs 3
- Continue aspirin, beta-chay, and statin.
- Cardiac cath for chest pain as well as for anticipation of TAVR
Mild hyponatremia - RESOLVED
Diabetes mellitus
- Insulin Sliding Scale
- Hold home Glimepiride
Paroxysmal atrial fibrillation
- Atenolol
- Continue Eliquis (previously was held for cardiac cath)
Hypertension
Uncontrolled Hypertension
- Blood pressure was high into the 200s prior to arrival
- Amlodipine was increased to 10 mg daily
- Losartan increased to 20 mg daily
- Enalaprilat 1x dose on March 03, 2024
- PRN hydralazine
Hyperlipidemia
- Continue Atorvastatin
Chronic Kidney Disease/Solitary kidney (baseline Cr around 1.3)
-S/P left nephrectomy.
-Creatinine currently 1.4; continue to monitor renal function.
CODE STATUS is full code
DVT prophylaxis Eliquis
Anticipated Discharge: Within 24 hours
Subjective/Interval History
-
Date of Service: March 04, 2024
Patient was seen and examined. He denied any chest pain, shortness of breath or any other complaints.
Objective Data
-
Labs:
Laboratory Results
03/04/24
06:07
WBC 8.4
Hgb 16.2
Hct 46.4
Plt Count 205
Sodium 133 L
Potassium 4.6
Chloride 99
Carbon Dioxide 26
BUN 27 H
Creatinine 1.4 H
Glucose 143 H
Calcium 9.9
Vital Signs:
Vital Signs
Temp Pulse Resp BP Pulse Ox
97.3 F 61 16 169/72 96
03/04/24 11:00 03/04/24 11:00 03/04/24 11:00 03/04/24 11:00 03/04/24 11:00
I&O
03/03/24 03/04/24 03/05/24
06:59 06:59 06:59
Intake Total 1140 / 1140 600 / 600
Balance 1140 / 1140 600 / 600
[2024-03-04] MEDS: APRESOLINE 5 MG IV (13:32)
[2024-03-04 14:20] VITALS: BP 154/68
--- NOTE | 2024-03-04 15:07 | W.DS.TRANS ---
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
-
Discharge Instructions:
Sleep Apnea Risk High
Discharge Diagnosis/Procedures cardiac catheterization
Symptomatic Severe aortic stenosis
Coronary artery disease status post CABG and
stenting Xs 3
Mild hyponatremia - RESOLVED
Diabetes mellitus
Paroxysmal atrial fibrillation
Hypertension
Uncontrolled Hypertension
Hyperlipidemia
Chronic Kidney Disease/Solitary kidney (baseline
Cr around 1.3) status post left nephrectomy
Diet Low Sodium,Low Fat,Low Cholesterol,Diabetic,
Carb Controlled
Activity Other activity
Additional Activity Limited weight bearing on the left wrist for one
week from March 03, 2024
Blood Work PLEASE HAVE BLOODWORK DRAWN ON 03/10/2024. THIS
DOES NOT NEED TO BE FASTING. PLEASE HAVE
RESULTS FAXED TO [phone].
Others Tests A CT SCAN HAS BEEN SCHEDULED FOR YOU AT
[facility] ON 03/14/2024 AT 9:30AM.
PLEASE DO NOT EAT OR DRINK ANYTHING FOR 3 HOURS
PRIOR. PLEASE BRING A COMPLETE LIST OF YOUR
MEDICATIONS WITH YOU TO YOUR VISIT.
Please make an appointment with your
dentist for dental clearance prior to your
procedure
Instructions:
Stand-Alone Forms: DC Instructions- Cath/EP Lab
Changes to Home Medications: Yes
Discharge Medications:
DC Medications w/original date entered in [employer]
atenolol 25 mg tablet 37.5 mg PO DAILY Blood Pressure 03/11/11
alprazolam 0.25 mg tablet 0.25 mg PO TID ANXIETY 05/05/11
simvastatin 20 mg tablet 20 mg PO HS High Cholesterol 07/17/17
aspirin 81 mg tablet,delayed release 81 mg PO DAILY #1 tab 09/13/21
pantoprazole 40 mg tablet,delayed release 40 mg PO DAILY #90 tabs 09/13/21
glimepiride 2 mg tablet 2 mg PO BID Diabetes 03/01/24
nitroglycerin 0.4 mg sublingual tablet 0.4 mg sublingual [id number] PRN chest pain 03/01/24
vitamins A,C,C-jsxa-hxdwis 2,148 mcg-113 mg-45 mg-17.4 mg tablet (PreserVision AREDS) 1 tab PO BID Supplement 03/01/24
amlodipine 10 mg tablet 10 mg PO DAILY #30 tabs 03/04/24
apixaban 5 mg tablet (Eliquis) 5 mg PO BID #60 tabs 03/04/24
hydralazine 10 mg tablet 10 mg PO TID PRN systolic blood pressure greater than 170 mmHg #7 tabs 03/04/24
lisinopril 20 mg tablet 20 mg PO DAILY #30 tabs 03/04/24
Home Medication Changes
Amlodipine and Lisinopril doses have been increased.
Eliquis dose increased -- but may need to be decreased outpatient if Creatinine is high enough.
Hydralazine as needed for high blood pressure.
Glimepiride is on hold.
Isosorbide Mononitrate has been stopped.
Pending Results: No
Total time spent discharging patient (in min): 41
[2024-03-04 15:30] VITALS: BP 156/76
--- NOTE | 2024-03-06 17:06 | W.DCSUMMARY ---
Discharge Summary
Discharge Data
Date of Admission: 03/01/24
Date of Discharge: 03/04/24
Total time spent discharging patient (in min): 41
-
Pending Results: No
Hospital Course
83 y/o male with past medical history of severe aortic stenosis, hypertension, coronary artery disease status post CABG and 4 stents, presented with chest pain and shortness of breath. He was noted to now have symptomatic severe aortic stenosis.
Patient was found to have significantly elevated blood pressure with systolic blood pressure in the 180s and 190s (with reports of systolic blood pressure in the 200s at home prior to arrival), therefore his Amlodipine was increased. Patient's
isosorbide mononitrate was held due to concerns that it could worsen aortic transvalvular gradients (by decreasing afterload). Patient had a cardiac catheterization on March 03, 2024, and it showed, as per university internship's report:
'CONCLUSIONS:
1. Right dominant circulation with a diffusely diseased left main, chronic total occlusion of the mid LAD, 50% lesion in the proximal AV groove circumflex with flush occluded marginals and a chronic total occlusion of the mid RCA, reconstituting
after the crux with epicardial collaterals from the acute marginal.
2. Status post coronary artery bypass grafting with a patent MCKEE to LAD, patent SVG to OM with a patent stent in the proximal margin, occluded SVG to diagonal and occluded SVG to RCA.
3. Top normal to mildly elevated filling pressures (PCWP = 13 mmHg at 81.8 kg).
4. Depressed cardiac function (cardiac index = 1.99 L/min/m�).
5. Severe aortic valve stenosis by echocardiogram.'
Patient was evaluated by the TAVR (Transcatheter Aortic Valve Replacement) team during his hospitalization. Patient's Lisinopril was increased for better blood pressure control, and he was also given on discharge prn Hydralazine as discussed with
cardiology. Patient was advised to follow-up closely with his primary care physician within 1-2 days of discharge for blood pressure follow-up. Patient would also need continued TAVR evaluation outpatient.
Discharge Plan
-
Patient Disposition: Home (Routine Discharge)
Discharge Diagnosis/Procedures: cardiac catheterization
Symptomatic Severe aortic stenosis
Coronary artery disease status post CABG and stenting Xs 3
Mild hyponatremia - RESOLVED
Diabetes mellitus
Paroxysmal atrial fibrillation
Hypertension
Uncontrolled Hypertension
Hyperlipidemia
Chronic Kidney Disease/Solitary kidney (baseline Cr around 1.3) status post left nephrectomy
Condition: Fair
Diet: Low Fat, Low Cholesterol, Low Sodium and Diabetic, Carb Controlled
Activity: Other activity
Additional Activity: Limited weight bearing on the left wrist for one week from March 03, 2024
Blood Work: PLEASE HAVE BLOODWORK DRAWN ON 03/10/2024. THIS DOES NOT NEED TO BE FASTING. PLEASE HAVE RESULTS FAXED TO [phone].
Others Tests: A CT SCAN HAS BEEN SCHEDULED FOR YOU AT [facility] ON 03/14/2024 AT 9:30AM. PLEASE DO NOT EAT OR DRINK ANYTHING FOR 3 HOURS PRIOR. PLEASE BRING A COMPLETE LIST OF YOUR MEDICATIONS WITH YOU TO YOUR VISIT.
Please make an appointment with your dentist for dental clearance prior to your procedure
Activity Restrictions/Additional Instructions:
Please visit your primary care physician Dr. Johnson by tomorrow, Sunday, March 05, 2024 for your high blood pressure, as discussed.
-Check your blood pressure at home at least 4 times per day.
-Apixaban dose might need to be reduced depending on your kidney function -- check with your primary care provider.
-Glimepiride dose may need to be adjusted to avoid hypoglycemia.
-Your Lisinopril and Amlodipine doses have been increased -- hopefully that will bring your blood pressure under control -- a small supply of as needed Hydralazine (as needed for systolic blood pressure greater than 170 mmHg) has been sent to your
pharmacy -- but you really need to follow-up with your primary care provider about this.
Instructions: High blood pressure emergencies
Stand Alone Forms: DC Instructions- Cath/EP Lab
Referrals:
Torrez,Sue, [employer] [Specified Professional Personl] -
Linwood Johnson MD [Family Provider] - in one day (High blood pressure follow-up, hospital follow-up)
Tulio Victor MD [Active] - 04/22/24 1:00 pm (Cardiology followup appointment)
Dominic Wright MD [Active] - 03/18/24 10:00 am
Additional Discharge Medication Instructions: Amlodipine and Lisinopril doses have been increased.
Eliquis dose increased -- but may need to be decreased outpatient if Creatinine is high enough.
Hydralazine as needed for high blood pressure.
Glimepiride is on hold.
Isosorbide Mononitrate has been stopped.
Prescriptions:
New
hydralazine 10 mg tablet
10 mg PO TID PRN (Reason: systolic blood pressure greater than 170 mmHg) Qty: 7 0RF
Eliquis 5 mg Tablet
5 mg PO BID Qty: 60 1RF
lisinopril 20 mg Tablet
20 mg PO DAILY Qty: 30 1RF
amlodipine 10 mg Tablet
10 mg PO DAILY Qty: 30 1RF
Continued
alprazolam 0.25 MG tablet
0.25 mg PO TID
Patient Comments:
03/01/2024: last filled 02/07/24, 270 tabs for 90 days from [facility]
atenolol 25 MG tablet
37.5 mg PO DAILY
simvastatin 20 MG tablet
20 mg PO HS
pantoprazole 40 MG tablet,delayed release (DR/EC)
40 mg PO DAILY Qty: 90 3RF
aspirin 81 MG tablet,delayed release (DR/EC)
81 mg PO DAILY Qty: 1 0RF
PreserVision AREDS 2,148 mcg-113 mg-45 mg-17.4mg Tablet
1 tab PO BID
nitroglycerin 0.4 MG tablet, sublingual
0.4 mg sublingual [id number] PRN (Reason: chest pain)
Held
glimepiride 2 mg Tablet
2 mg PO BID
Hold Instructions: Resume on 03/11/24. Discuss with your primary care physician before resuming this medication.
Discontinued
amlodipine 5 MG tablet
5 mg PO DAILY
isosorbide mononitrate 60 MG tablet extended release 24 hr
60 mg PO DAILY
Eliquis 2.5 MG tablet
2.5 mg PO BID Qty: 60 0RF
lisinopril 5 mg Tablet
5 mg PO BID
Discharge Orders:
Discharge Patient (As Directed); Ordered 03/04/24
Ordered By: Chente Garces
Discharge Date and Time
Discharge Date/Time: 03/04/24 16:48
Print Language: WOLOF
== END 2024-03-04 16:48 | disposition home or self-care (01) | DRG 287 ==
LOC: 3 WEST ACU 10:53
PROVIDERS: Internal Medicine Cardiovascular Disease; Nurse Practitioner; Physician Assistant Medical; ADMITTING PHYSICIAN Internal Medicine; ATTENDING PHYSICIAN Hospitalist; CONSULT PHYSICIAN Internal Medicine; EMERGENCY PHYSICIAN Emergency Medicine; FAMILY PHYSICIAN Family Medicine
PROC: 4A023N6 Measurement of Cardiac Sampling and Pressure, Right Heart, Percutaneous Approach (ICD-10-PCS; 2024-03-03)
PROC: B2181ZZ Fluoroscopy of Left Internal Mammary Bypass Graft using Low Osmolar Contrast (ICD-10-PCS; 2024-03-03)
PROC: B2131ZZ Fluoroscopy of Multiple Coronary Artery Bypass Grafts using Low Osmolar Contrast (ICD-10-PCS; 2024-03-03)
PROC: B2111ZZ Fluoroscopy of Multiple Coronary Arteries using Low Osmolar Contrast (ICD-10-PCS; 2024-03-03)
DX: I35.0 Nonrheumatic aortic (valve) stenosis (principal); E87.1 Hypo-osmolality and hyponatremia; I25.719 Atherosclerosis of autologous vein coronary artery bypass graft(s) with unspecified angina pectoris; I25.119 Atherosclerotic heart disease of native coronary artery with unspecified angina pectoris; E11.22 Type 2 diabetes mellitus with diabetic chronic kidney disease; I48.0 Paroxysmal atrial fibrillation; I12.9 Hypertensive chronic kidney disease with stage 1 through stage 4 chronic kidney disease, or unspecified chronic kidney disease; N18.9 Chronic kidney disease, unspecified; E78.00 Pure hypercholesterolemia, unspecified; Z79.82 Long term (current) use of aspirin; Z79.84 Long term (current) use of oral hypoglycemic drugs; Z90.5 Acquired absence of kidney
CPT/HCPCS: 71046; 80048; 82962; 83036; 83735; 83880; 84484; 85025; 85027; 93005; 93457; 99285; C1894; Q9967

== ENCOUNTER → 2024-03-14 09:24 | Outpatient (REF) | payer OTHER, SELFPAY | LOC: RAD 09:24 | PROVIDERS: ATTENDING PHYSICIAN Nurse Practitioner Adult Health; FAMILY PHYSICIAN Family Medicine | DX: I35.0 Nonrheumatic aortic (valve) stenosis (principal) | CPT/HCPCS: 74174; 75572; Q9967 ==

== ENCOUNTER 2024-04-17 05:13 | Inpatient (IN) | payer OTHER, SELFPAY ==
[2024-04-09 08:19] VITALS: BMI 28.4
[2024-04-09 09:12] LABS: % Basophils 0.8 % (0-2); % Eosinophils 3.9 % (0-6); % Immature Granulocytes 0.2 % (0-0.5); % Lymphocytes 28.7 % (20.5-51.1); % Monocytes 8.2 % (1.7-9.3); % Neutrophils 58.2 % (42.2-75.2); Absolute Basophils 0.1 10^3/uL (0-0.2); Absolute Eosinophils 0.2 10^3/uL (0-0.7); Absolute Lymphocytes 1.8 10^3/uL (1.2-3.4); Absolute Monocytes 0.5 10^3/uL (0.1-0.6); Absolute Neutrophils 3.6 10^3/uL (1.4-6.5); Hematocrit 40.6 % (39.0-52.0); Hemoglobin 14.4 g/dL (13.0-18.0); Mean Corp Hgb Conc. 35.5 g/dL (33.0-37.0); Mean Corpuscular Hgb 30.7 pg (27.0-31.0); Mean Corpuscular Volume 86.6 fL (80.0-94.0); Mean Platelet Volume 9.5 fL (7.4-10.4); Nucleated Red Blood Cells % 0 % (-); Platelet Count 192 10^3/uL (130-400); Red Blood Cell Count 4.69 10^6/uL (4.70-6.10); White Blood Cell Count 6.2 10^3/uL (4.8-10.8)
[2024-04-09 09:22] LABS: INR 1.33; PT 16.6 Sec (11.4-14.6)
[2024-04-09 09:23] LABS: APTT 33.7 Sec (23.4-35.0)
[2024-04-09 10:07] LABS: ALT (SGPT) 18 U/L (0-50); AST (SGOT) 22 U/L (17-59); Albumin 4.2 g/dl (3.5-5.0); Alkaline Phosphatase 84 U/L (38-126); Blood Urea Nitrogen 19 mg/dl (9-20); Calcium 9.8 mg/dl (8.4-10.2); Carbon Dioxide 23 mmol/L (22-30); Chloride 103 mmol/L (98-107); Direct Bilirubin 0.3 mg/dl (0.0-0.4); Estimated Creatinine Clearance 36 ml/min; Glucose 125 mg/dl (70-99); Potassium 4.5 mmol/L (3.5-5.1); Sodium 137 mmol/L (135-145); Total Bilirubin 0.9 mg/dl (0.2-1.3); Total Protein 6.7 g/dl (6.3-8.2); eGFR 49.25
[2024-04-09 10:11] LABS: Urine Albumin Negative (Neg - Trace); Urine Bilirubin Negative (Negative); Urine Character Clear (Clear); Urine Color Yellow; Urine Glucose Negative (Negative); Urine Ketone Negative (Negative); Urine Leukocyte Negative (Negative); Urine Nitrite Negative (Negative); Urine Occult Blood Negative (Negative); Urine Urobilinogen Negative (Neg - 1+); Urine pH 6.5 (5.0-9.0)
[2024-04-09 10:15] LABS: NT-proBNP 344 pg/ml
--- NOTE | 2024-04-09 10:53 | CM ---
spoke to pt and in PAT's. we discussed preop TAVR teaching including lifting and driving restrctions. he is prev indep, lives with his josey 2 story home with a first floor set up. he denies any dme's. he has the TAVR educ book, soap and
instructions, he is agreeable to a f/u visit form the ct transitional care nurse after dc. plan is for TAVR 04/17, cm role explained and all questions answered.
[2024-04-17] VITALS (29 sets, daily range): BP systolic 97–163; BP diastolic 46–89; BMI 28.0
[2024-04-17] MEDS: ANCEF 10 IV ×2 (06:00→07:00)
--- NOTE | 2024-04-17 06:06 | PTCARENOTE ---
Addendum entered by Uriel Cannon RN 04/17/24 06:36:
Pt clipped and wiped w/ CHG wipes
Original Note:
Pt direct admit for TAVR. Neuro WNL. Pt AAOx4. Ambulating independently, steady gait. Lungs clear b/l, RA 97%. L hand INT placed. L dorsalis pedis pulse bounding, R dorsalis pedis pulse weak. Radial pulses palpable. Pt belongings in room w/pt. Pt's
at bedside.
Blood bank slip on pt chart indicated no ABO2 or T+S for AM admission. Double checked and confirmed w/ Blood Bank.
--- NOTE | 2024-04-17 06:16 | W.CVOR.SURPR ---
CVOR Surgeon Immed Pre Op
-
I have examined this patient prior to performance of the scheduled procedure.
The patient's condition is unchanged from the time of the dictated/written History and
Physical and the patient is able to undergo the scheduled procedure.
TF TAVR
Rescue status: OK for CPR/Shocks/Meds, No to CPB and No to Sternotomy
[2024-04-17 06:19] LABS: Glucose - Point of Care 145 mg/dl (70-99)
[2024-04-17 08:22] LABS: ACT-LR - POC 374 Seconds (116-155)
--- NOTE | 2024-04-17 08:57 | W.PN.CT.SURG ---
Addendum entered and electronically signed by JENA Chan 04/22/24 08:23:
CDI query:
Acute on chronic combined systolic and diastolic CHF
Original Note:
CT Surgery Operative Note
-
OPERATIVE REPORT
Preoperative Diagnosis: Severe aortic valve stenosis, symptomatic
Postoperative Diagnosis: Same
Procedure(s) Performed: Right trans femoral TAVR with a 26mm Medtronic Evolut FX device with Balloon Valvuloplasty with a 20 mm balloon
Date of Procedure: 04/17/24
Comorbidities:
1. Severe symptomatic aortic stenosis
2. Acute on chronic congestive heart failure with LVEDP measuring 28 mmHg
3. Previous cardiac surgery
4. Hypertension
5. Hyperlipidemia
6. Hiatal hernia
7. Diverticulosis
8. Basal cell carcinoma.
9. GERD
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
11. Atrial fibrillation
Cardiac Surgeon: Glenn Barnhart MD, MS
Loss Prevention Operations Manager: Malcolm Woodard MD
Anesthesia: Conscious Sedation, Local
EBL: 100cc
Products: none
Implant: Medtronic Evolut 26 mm FX TAVR valve SN: [id number]
Indication(s) for Procedures: 83-year-old male with severe aortic stenosis. Symptomatic. CT-TAVR protocol revealed acceptable anatomy for a self-expanding TAVR valve.
Start time: 0742hrs
Deployment time: 0823hrs
End time: 0839hrs
Radiation Dose (mGy): 490.06
DAP (cm2.Gy): 51.1439
Fluoroscopy time (minutes): 11.4
Contrast volume (ml): 82
TAVR gradient (mmHg): 7mmHg
Heparin Dose: 7000units
Protamine Dose: 30mg
Final Valve Positionin:3mm
LVEDP: 20 mmHg
Findings: Preoperative LVEF was 55% and was 55% following TAVR without inotropic support. Function was overall normal without regional wall motion abnormalities or dyskinesia. The aortic valve was well seated with only trace PVL. The patient did not
require pacing postoperative and was in sinus rhythm. There was successful placement of 26mm Evolut FX TAVR valve without acute complications. LVEDP measurements were 28 mmHg pre-TAVR deployment indicating acute on chronic congestive heart failure
with volume overload. The deployment required 1 recaptured in order to reposition due to the valve being bit too deep.
Access:
1. Device -right common femoral artery, perclose x 2 +8 Kyrgyz Angio-Seal
2. Pigtail -left common femoral artery + 6Fr angioseal
3. Transvenous Pacer -left common femoral vein
Description of Procedure: The patient was taken to the laborer drying department. Their identity and procedure to be performed were verified and they were positioned supine on the laborer drying department table. Induction via conscious sedation with local analgesia. The patient was
then prepped and draped from chin to thigh in a sterile fashion. A preoperative time-out was performed with all members of the team present. Using fluoroscopy, bilateral femoral heads and their margins were identified. Arterial and venous access
were done with a micropuncture needle with Seldinger technique. Test pacing revealed capture with excellent threshold. Angiography confirmed proper puncture site and femoral artery integrity. Two Per-Close devices were used on the TAVR side. An AL1
catheter was used to deliver a extrastiff wire and insertion of the working sheath. An AL1 catheter with a straight stiff wire was used to access the LV. An LVEDP was measured here. We then exchanged the AL-1 catheter for a pigtail catheter. This
was then exchanged for a Lunderquist wire. The valve was prepped and mounted on to the device carrier. An ACT of >250 was achieved. We verified x 3 under fluoroscopy that the valve was mounted correctly with paddles in appropriate position.
Balloon valvuloplasty was planned and performed to under rapid pacing. We than set our parameters to achieve a co-planar view with the pigtail positioned in the NCC. We advanced the device with it's in-line sheath into the descending thoracic aorta
and over the arch into the root and positioned across the aortic valve. Contrast fluoroscopy was used to visualize the prosthesis across the valve. We performed a quick pre-deployment time out. We verified positioning based on the pigtail and gentle
contrast puffs. The valve was slowly deployed to just before annular contact. We paused here and verified positioning in our cusp overlap view. The pacer was turned on and we continued deployment to annular contact. At this point the valve was
functioning and pacing was stopped. The valve appeared to be a bit deep and so we recaptured partially and moved the valve more aortic until we were satisfied. We then slowly started to deploy the valve once more into the annular contact and once
we were satisfied with swelling NEPALI in order to visualize left coronary cusp height relative to the valve. We were satisfied with the location of the valve and still continue to slowly deploy after giving contrast aortogram to verify height. We
slowly continued to deploy the valve until the crowns and paddles were free from the device. The deployment device was withdrawn into the descending thoracic aorta while maintaining wire access across the valve. A transthoracic echocardiogram was
performed . The pigtail was re-positioned at the level of the crown of the valve and angiography revealed excellent placement and seating of the valve at the annulus. The device was removed from the groin as we cinched down the perclose devices
while maintaining wire access. There was acceptable hemostasis. The pigtail was repositioned into the descending/abdominal and runoff aortogram was performed. There was no significant stenosis or dissection of the bilateral iliofemoral systems with
excellent runoff to the SFAs. All wires were removed and perclose snugged and cut. There was acceptable hemostasis of bilateral groins.
All instrument, sponge, and needle counts were confirmed to be correct x 2 at the end of the operation. The patient was transferred to the cardiac intensive care unit in stable condition.
I, Dr. Glenn Barnhart, was present, scrubbed for, and performed all critical elements of this procedure.
Glenn Barnhart MD, MS
Cardiothoracic Surgeon
[facility]
This operative dictation was created using the [employer] dictation system. Please excuse any grammatical, typographical, or 'sound alike' errors
--- NOTE | 2024-04-17 09:05 | W.PN.UPDATE ---
Update Note
Progress Note Update
Reviewed Mr. Celis with the heart team in the SDM meeting and confirmed a 26mm Evolut via right transfemoral access. Patient will resume Eliquis + Aspirin post TAVR. LVEDP 28 mmHg. #26mm Evolut (serial# [id number]) successfully deployed via TF access.
Post implant MG 7mmHg.
[2024-04-17] MEDS: XANAX PO (09:30)
[2024-04-17 09:39] LABS: Glucose - Point of Care 181 mg/dl (70-99)
[2024-04-17] MEDS: LASIX 20 MG IV (09:40)
--- NOTE | 2024-04-17 10:24 | CM ---
pt in OR today for TAVR, cm following
[2024-04-17 10:51] LABS: ACT-LR - POC > 397 Seconds (116-155)
--- NOTE | 2024-04-17 11:08 | PTCARENOTE ---
Received patient from PACU at 1015 after TAVR procedure. Patient is AAO, with stable neuro check. Bilateral groin sites are clean, dry and intact. Strong left DP pulse, with weaker right DP pulse. Reinforced post op restrictions and he states his
understanding. SR/SB on the monitor with BBB, monitoring VS as per protocol. Call del valle within reach.
[2024-04-17] MEDS: ASPIR LOW (ENTERIC COATED) PO (11:26)
[2024-04-17] MEDS: AMARYL PO (12:00)
[2024-04-17] MEDS: OCUVITE SOFTGEL PO ×2 (12:00→20:02)
[2024-04-17 12:10] LABS: Glucose - Point of Care 149 mg/dl (70-99)
--- NOTE | 2024-04-17 13:30 | ITS.CL.TAVR ---
Telephone Station Repairer - TAVR Report
TAVR PRocedure
Procedure Report:
TRANSCATHETER AORTIC VALVE REPLACEMENT REPORT
Date: 04/17/2024
Referring physician: Tulio Victor MD
Operators: Mann Woodard MD, Glenn Barnhart MD
Procedure: Conscious sedation was provided by anesthesia. Using a micropuncture technique, 6F LFV and LFA sheaths were placed. Injection into the LFA sheath was performed to confirm a common femoral artery puncture site. A transvenous pacemaker was
placed into the RV apex with excellent thresholds. A pigtail catheter was advanced to the aortic root and low-volume injections performed to identify a cusp overlap angle for valve deployment. Access was then obtained in the RFA using the
micropuncture technique. Injection into the RFA sheath was performed to confirm a common femoral artery puncture site. Heparin 3000 units units was administered. At this point, two Perclose sutures were preset using the preclose technique. We then
placed an 8 Bhutanese sheath. A 14 Bhutanese sheath was exchanged into the RFA after using a 12 Bhutanese dilator. Heparin 4000 units was administered. The valve was crossed with an AL 1 diagnostic catheter and a straight wire. A double curved Lunderquist
wire was advanced into the LV apex. BAV was performed with an 18 mm Muna balloon during rapid ventricular pacing at 180/min. Hemodynamics recovered quickly following BAV. The 14 F sheath was removed and exchanged for a 26mm Medtronic Evolute pro
valve with in-line sheath. The valve was carefully advanced around the aortic arch and across the valve. Once ideal valve positioning was confirmed, the valve was very slowly deployed with ventricular pacing at 100-140 per minute. The result was
evaluated with both aortography and echocardiography which demonstrated an excellent result. The mean gradient was 6 mmHg with no AI. The valve deployment system was removed and hemostasis achieved with the Perclose sutures. Angiography of the
right iliofemoral system was accomplished and showed no evidence of significant dissection or perforation with good runoff below the femoral bifurcation. The LFA sheath was removed with a 6 Bhutanese Angio-Seal. The pacemaker was removed and the LFV
sheath removed with manual compression.
Radiation
Dose (mGy): 490
DAP (cm2.Gy): 51.4
Fluoroscopy time: 11.4 minutes
Conclusion: Successful placement of 26mm CoreValve Evolute Pro using a right percutaneous transfemoral approach with no acute complications
Mann Woodard M.D.
Copy : Tulio Victor MD, Linwood Johnson MD
[2024-04-17] MEDS: PROTONIX 40 MG PO (14:35)
[2024-04-17] MEDS: NORVASC 10 MG PO (14:48)
--- NOTE | 2024-04-17 15:04 | PTCARENOTE ---
Patient assisted oob to the bathroom, up in the chair now, in visiting. Dressings at bilateral groin sites are dry and intact. Patient coughed up some mucous when doing IS and noted small amount of dark blood in mucous, CT surgery PA notified
and will continue to monitor.
[2024-04-17] MEDS: XANAX 0.25 MG PO ×2 (16:17→20:41)
[2024-04-17] MEDS: ANCEF 5 IV (16:17)
[2024-04-17] MEDS: AMARYL 2 MG PO (16:17)
[2024-04-17 16:45] LABS: Glucose - Point of Care 260 mg/dl (70-99)
[2024-04-17] MEDS: NOVOLOG FLEXPEN-MODERATE RESISTANCE 5 UNITS SC (17:57)
[2024-04-17] MEDS: NITROSTAT (SUBLINGUAL) 0.400000000000000022 MG SL (19:55)
[2024-04-17] MEDS: LIPITOR 10 MG PO (20:41)
[2024-04-17 22:05] LABS: Glucose - Point of Care 181 mg/dl (70-99)
--- NOTE | 2024-04-18 00:31 | W.PN.CT ---
Today's Communication / Plan
-
Plan�
No significant events overnight
New LBBB = held beta chay �
Diuresis = 20 mg of Lasix post up �
Current meds = ASA, Eliquis�
Chest pain = prn nitro�
Increase anxiety overnight required additional dose of xanax�
Encourage IS and OOB to chair�
Assessment / Plan
-
S/P Placement of 26mm CoreValve Evolute Pro using a right percutaneous transfemoral approach POD1�
PHM:�
Severe �
Paroxysmal AFib�
OK 11/2004�
CAD s/p CABG 04/1994�
TYPE 2 DM�
h/o colon CA�
DJD�
Recurrent salmonella�
Gastroenteritis�
h/o large hiatal hernia�
Tubulovillus adenoma of colon�
Diverticulosis�
Acute on chronic calculous cholecystitis�
s/p lap danelle 12/29/10�
BCC�
GERD�
Arthritis right shoulder�
Urothelial Cell Carcinoma left ureteral/renal pelvis�
Subjective
Procedure
S/P Placement of 26mm CoreValve Evolute Pro using a right percutaneous transfemoral approach
-
Date of Service: April 18, 2024
Objective Data
-
PT 16.6 Sec (11.4-14.6) H 04/09/24 08:48
INR 1.33 04/09/24 08:48
APTT 33.7 Sec (23.4-35.0) 04/09/24 08:48
Vital Signs
Vital Signs
Temp Pulse Resp BP Pulse Ox
97.7 F 86 20 144/65 96
04/17/24 23:35 04/17/24 22:03 04/17/24 23:35 04/17/24 22:03 04/17/24 23:35
CT Intake/Output/Weight
04/17/24 04/17/24 04/18/24
06:59 18:59 06:59
Intake Total 1460 / 1460
Output Total 1500 / 1500
Balance -40 / -40
SaO2: 96
Physical Exam
-
General: Awake
Cardiovascular: Regular rate & rhythm
Respiratory: Clear
Sternum: Stable
Incision: Clean, Dry and Intact
Extremities: No Edema
[2024-04-18 05:40] VITALS: BP 144/67
[2024-04-18 05:53] VITALS: BMI 27.8
[2024-04-18 05:59] LABS: Hematocrit 37.8 % (39.0-52.0); Hemoglobin 13.5 g/dL (13.0-18.0); Mean Corp Hgb Conc. 35.7 g/dL (33.0-37.0); Mean Corpuscular Hgb 31.2 pg (27.0-31.0); Mean Corpuscular Volume 87.3 fL (80.0-94.0); Mean Platelet Volume 9.5 fL (7.4-10.4); Platelet Count 134 10^3/uL (130-400); Red Blood Cell Count 4.33 10^6/uL (4.70-6.10); Red Cell Dist. Width 12.6 % (11.5-14.5); White Blood Cell Count 10.4 10^3/uL (4.8-10.8)
[2024-04-18 06:14] LABS: Blood Urea Nitrogen 16 mg/dl (9-20); Carbon Dioxide 24 mmol/L (22-30); Chloride 102 mmol/L (98-107); Estimated Creatinine Clearance 39 ml/min; Glucose 132 mg/dl (70-99); Sodium 133 mmol/L (135-145); eGFR 53.84
[2024-04-18 07:14] VITALS: BP 148/60
[2024-04-18 07:16] LABS: Glucose - Point of Care 148 mg/dl (70-99)
--- NOTE | 2024-04-18 07:38 | PTCARENOTE ---
Complained of some left chest pain and requested an NTG, given at 1954 with relief of pain. At HS he stated he wants something to help him sleep, Obtained order for Xanax 0.25mg po and given. Anxious at times. Groin muna wnl. SR in the s.
[2024-04-18] MEDS: NOVOLOG FLEXPEN-MODERATE RESISTANCE SC (07:56)
--- NOTE | 2024-04-18 08:10 | W.PN.ANS.POP ---
Anesthesia Post Operative
- Anesthesia Post Op Note
Vital Signs Stable-See Nursing Note: Yes
Airway Patent: Yes
Adequate Pain Control: Yes
Change in Mental Status: No
Current Postoperative Nausea & Vomiting: No
Anesthesia Complications: No
General Anesthetic Recall: No
Unplanned Admission: No
Post Op Hydration Adequate: Yes
--- NOTE | 2024-04-18 08:21 | W.PN.CD ---
Today's Communication / Plan
-
-Cath site is fine
-New LBBB will need outpatient monitoring. [facility]
-Await follow-up echo
Impression / Plan
-
83-year-old male with history of coronary, PAF who underwent TAVR #26mm Evolut
TAVR
-Cath site is fine
-New LBBB will need outpatient monitoring. [facility]
-Await follow-up echo
.
coronary artery disease/coronary artery bypass grafting stable without angina continue current therapy.
.
PAF. In sinus rhythm resume Eliquis
Physical Exam
Vital Signs/Labs
Vital Signs
Temp Pulse Resp BP Pulse Ox
98.4 F 79 20 144/67 98
04/18/24 07:11 04/18/24 07:00 04/18/24 07:11 04/18/24 05:40 04/18/24 07:11
04/17/24 04/18/24 04/19/24
06:59 06:59 06:59
Actual Weight 80.9 kg 80.4 kg
04/18/24 05:43
04/18/24 05:43
PT 16.6 Sec (11.4-14.6) H 04/09/24 08:48
INR 1.33 04/09/24 08:48
APTT 33.7 Sec (23.4-35.0) 04/09/24 08:48
04/09/24
08:48
Eeh-R-Uksrbawwbsh Pept 344
Physical Exam
Cardiovascular: Rhythm & rate is regular
Respiratory: Respiratory effort normal
GI: Soft
Neuro/Psych: Alert
Other: Cath Site (fine bilat)
Data Reviewed
-
Date of Service: April 18, 2024
Medical Decision Making: Reviewed Test Results
EKG: Report Reviewed by me
Echo: Report Reviewed by me
X-Ray/CT/US/MRI/NUC/PET: Report Reviewed by me
Medical Tests (PFT, Pathology etc): Image Personally Visualized and interpreted
--- NOTE | 2024-04-18 09:05 | W.PN.UPDATE ---
Update Note
Progress Note Update
Patient set up with [facility] ([id number]) 14 day monitoring engineer to be applied at discharge. Reviewed how to apply, charge and return with patient. Allowed for and answered questions.
[2024-04-18] MEDS: ASPIR LOW (ENTERIC COATED) 81 MG PO (09:08)
[2024-04-18] MEDS: PROTONIX 40 MG PO (09:08)
[2024-04-18] MEDS: OCUVITE SOFTGEL 1 CAP PO (09:08)
[2024-04-18] MEDS: NORVASC 10 MG PO (09:08)
[2024-04-18] MEDS: AMARYL 2 MG PO (09:08)
[2024-04-18] MEDS: XANAX 0.25 MG PO ×2 (09:09)
--- NOTE | 2024-04-18 11:21 | W.DCSUMMARY ---
Discharge Summary
Discharge Data
Date of Admission: 04/17/24
Date of Discharge: 04/18/24
-
Pending Results: No
Hospital Course
Primary care physician: Linwood Johnson
Outpatient environmental marketing representative: Tulio Victor
Inpatient consultants: [facility]
Procedures:
1. Transcatheter aortic valve replacement
Primary Diagnosis:
1. Severe aortic valve stenosis
Secondary Diagnoses:
1. Acute on chronic congestive heart failure with LVEDP measuring 28 mmHg
2. CAD s/p CABG 1993
3. Hypertension
4. Hyperlipidemia
5. Hiatal hernia
6. Diverticulosis
7. Basal cell carcinoma.
8. GERD
9. 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
10. Paroxysmal atrial fibrillation
11. Type 2 diabetes
12. Osteoarthritis
13. New LBBB post TAVR
HPI: Jaxon Celis is an 83-year-old male who was electively admitted on 04/17/2024 for TAVR due to exertional shortness of breath
Hospital course: Patient underwent right trans femoral TAVR #26mm Medtronic Evolut FX device with Balloon Valvuloplasty (#20 mm balloon) on 04/[address] Glenn Barnhart and Mann Woodard. Patient noted to have new left bundle branch block status
post TAVR procedure and beta-chay was held. The left bundle branch block was again noted on morning EKG (postop day #1)and Rhythm Star monitor was ordered. Patient will continue on aspirin and Eliquis. TTE reported an EF of 60-65%. mild MR. AV
mean gradient 13mmHg, tr AI. Patient deemed stable for discharge to home.
Home medication changes:
Tylenol as needed for pain
Discharge Plan
-
Patient Disposition: Home (Routine Discharge)
Discharge Diagnosis/Procedures: TF-TAVR
Condition: Fair
Diet: Low Cholesterol and 2 Gram Sodium
Activity: As tolerated
Driving Restrictions: No driving for 1 week
Bathing Restrictions: OK to Shower
Others Tests: 30 Day Follow Up Echocardiogram: 05/16/2024 at 10:20am at the [facility]
Other Services: Cardiac Rehab
Wound Care: Please do not apply powders, lotions or creams to groin areas. Please monitor groins for increased pain, swelling, redness or drainage. Call your doctor if any occur.
Specialty Instructions: Weigh Daily- Call MD for wt gain/loss 3 lbs overnight/5 lbs in 1 week
Referrals:
CT Transitional Care Nurse [Outside] (The Cardiothoracic Transitional Care Nurse will call you to set up a visit in 1-2 days.)
[facility]. Cardiac Rehab [Outside] - 05/15/24 1:00 pm
(Cardiac Rehab Orientation appointment is on 05/15/24 at 1:00 pm
The Cardiac Rehab gym is located on the first floor of the [facility].)
Linwood Johnson MD [Family Provider] -
Jeaneth Garcia CRNP [Specified Professional Personl] - 05/20/24 10:00 am
(this appt is at - [address] [place] [address]

NOTE: your appt with Dr. Victor on 04/22 was CANCELLED

you have an appt for ECHO Fri 05/16 @1020am in the [facility])
Prescriptions:
New
acetaminophen 325 mg Tablet
650 mg PO Q4HPRN PRN (Reason: MINA, mild pain, or fever >101F) Qty: 0 0RF
Continued
alprazolam 0.25 MG tablet
0.25 mg PO TID
Patient Comments:
03/01/2024: last filled 02/07/24, 270 tabs for 90 days from [facility]
atenolol 25 MG tablet
37.5 mg PO DAILY
simvastatin 20 MG tablet
20 mg PO HS
pantoprazole 40 MG tablet,delayed release (DR/EC)
40 mg PO DAILY Qty: 90 3RF
aspirin 81 MG tablet,delayed release (DR/EC)
81 mg PO DAILY Qty: 1 0RF
glimepiride 2 mg Tablet
2 mg PO BID
Hold Instructions: Resume on 03/11/24. Discuss with your primary care physician before resuming this medication.
PreserVision AREDS 2,148 mcg-113 mg-45 mg-17.4mg Tablet
1 tab PO BID
nitroglycerin 0.4 MG tablet, sublingual
0.4 mg sublingual [id number] PRN (Reason: chest pain)
Eliquis 5 mg Tablet
5 mg PO BID Qty: 60 1RF
lisinopril 20 mg Tablet
20 mg PO DAILY Qty: 30 1RF
amlodipine 10 mg Tablet
10 mg PO DAILY Qty: 30 1RF
hydralazine 10 mg tablet
10 mg PO PRN PRN (Reason: systolic blood pressure greater than 170 mmHg)
Discharge Orders:
Discharge Patient (As Directed); Ordered 04/18/24
Ordered By: Scarlet Arguelles
Care Plan Goals
Care Plan Goals:
Problem: Readiness for enhanced knowledge related to diagnosis and treatment plan
Goal: Understand your diagnosis and treatment plan needs, including medications if applicable.
Instructions: Know your diagnosis, underlying causes and treatment plan options, including medications if applicable. Consult with your health care team to learn about your diagnosis and treatment plan, including medications if applicable.
Discharge Date and Time
Print Language: MONTSERRATIAN
[2024-04-18 11:27] VITALS: BP 159/62
[2024-04-18 12:33] VITALS: BP 162/68
[2024-04-18 12:40] VITALS: BP 142/77
[2024-04-18 12:47] VITALS: BP 142/77; BP 162/68; PULSE 95; O2SAT 92; O2SAT 94
[2024-04-18 12:50] LABS: Glucose - Point of Care 176 mg/dl (70-99)
[2024-04-18] MEDS: ZESTRIL 20 MG PO (13:19)
[2024-04-18] MEDS: NOVOLOG FLEXPEN-MODERATE RESISTANCE 1 UNITS SC (13:20)
--- NOTE | 2024-04-18 15:00 | PTCARENOTE ---
Patient discharged to home with . Discharge and medication education completed with patient and . IV and waitangi tribunal member removed. Rhythm Star monitor placed on patient prior to discharge.
--- NOTE | 2024-04-20 16:01 | CON.CAR ---
Medical History
-
History of Present Illness:
83-year-old male who underwent TAVR 04/17/2024 and presents with shoulder discomfort and a hot flash and presents in A-fib. Patient has a history of coronary artery disease/coronary artery bypass grafting/, stenting of vein graft to OM 2020, PAF,
anticoagulation with Eliquis. He underwent TAVR with a Medtronic Evolut #26 valve. Post procedure course notable for new left bundle branch block but no other arrhythmias. He was given an outpatient desk monitor and discharge. Patient
states that he had some low-grade left shoulder discomfort was unclear if it was musculoskeletal. He had some low-grade discomfort when he went home was able to sleep great Sunday night without a problem. Sunday he had so a low-grade shoulder
just sensation but he felt it was worse when he walked and would be worse for a couple minutes and then go back to the baseline. On Sunday he had a hot flash throughout his body and also was noticing his left shoulder pain this prompted him to go
to the ER. He was noted to be in A-fib with accelerated rates. He has received some Cardizem sublingual nitro and symptoms have improved he has to stop and think if he can feel anything in his shoulder at this point. No shortness of breath
palpitations or other associated symptoms.
He states in the past when he had some shoulder discomfort there was a question of whether this was related to angina and he had been instructed to take nitroglycerin.
Of note he had been on atenolol prior to TAVR but it had been discontinued after the procedure.
Echocardiogram 04/18/2024 ejection fraction 60 to 65%, mild mitral regurgitation Medtronic Evolut #26 mean gradient 13 mmHg. Trace aortic regurgitation
Catheterization03/03/2024. Multivessel coronary artery disease chronically occluded LAD, circumflex 50% stenosis several marginal branches appear to be occluded there is an obtuse marginal supplied by vein graft. RCA with mid occlusion. Distal
vessel supplied by collaterals from acute marginal.
MCKEE to the LAD patent, SVG to diagonal occluded, SVG to OM with patent stent SVG to RCA occluded
Past medical history
Coronary artery disease
Coronary artery bypass grafting 1993
Stenting of vein graft to OM 2020
PAF
left nephrectomy (history of urothelial cell carcinoma left ureter/renal pelvis)
Large hiatal hernia
Diabetes
History of Salmonella gastroenteritis
Diverticulosis
GERD
Recently diagnosed left bundle branch block
Past Medical History
Past Medical History: Other (as above)
Social History
Tobacco: Non-Smoker
Personal:
Allergies / Home Medications
Allergy/AdvReac Type Severity Reaction Status Date / Time
acetaminophen Allergy sick Verified 04/20/24 10:54
feeling in
stomach
and chest,
rapid
heart rate
NSAIDS (Non-Steroidal Allergy never Verified 04/20/24 10:54
Anti-Inflamma takes
[Nsaids] NSAIDS due
to having
only 1
kidney
�Medication �Instructions �Recorded �Confirmed �Type
alprazolam 0.25 mg tablet 0.25 mg PO TID anxiety 05/05/11 04/20/24 History
simvastatin 20 mg tablet 20 mg PO HS High Cholesterol 07/17/17 04/20/24 History
aspirin 81 mg tablet,delayed 81 mg PO DAILY #1 tab 09/13/21 04/20/24 Rx
release
pantoprazole 40 mg tablet,delayed 40 mg PO DAILY #90 tabs 09/13/21 04/20/24 Rx
release
glimepiride 2 mg tablet 2 mg PO BID Diabetes 03/01/24 04/20/24 History
nitroglycerin 0.4 mg sublingual 0.4 mg sublingual [id number] PRN 03/01/24 04/20/24 History
tablet chest pain
vitamins A,C,W-ghaf-ejggmr 2,148 1 tab PO BID Supplement 03/01/24 04/20/24 History
mcg-113 mg-45 mg-17.4 mg tablet
(PreserVision AREDS)
amlodipine 10 mg tablet 10 mg PO DAILY #30 tabs 03/04/24 04/20/24 Rx
lisinopril 20 mg tablet 20 mg PO DAILY #30 tabs 03/04/24 04/20/24 Rx
hydralazine 10 mg tablet 10 mg PO TIDPRN PRN systolic blood 04/04/24 04/20/24 History
pressure greater than 170 mmHg
apixaban 5 mg tablet (Eliquis) 5 mg PO BID Blood clot 04/18/24 04/20/24 Rx
prevention/tx #60 tabs
Review of Systems
-
All other systems: Negative unless noted
Physical Exam
Vital Signs
Temp Pulse Resp BP Pulse Ox
97.4 F 104 18 142/77 96
04/18/24 11:30 04/18/24 13:19 04/18/24 11:30 04/18/24 13:19 04/18/24 12:40
Lab Results
04/18/24 05:43
04/18/24 05:43
Qtv-Q-Ttrwfgqtgsy Pept 344 pg/ml 04/09/24 08:48
Physical Exam
General: Well Developed
HEENT: Normocephalic, Anicteric and Other (Eyes extraocular is intact external ear normal exam unremarkable)
Respiratory: Clear (No wheezes rales or rhonchi)
Cardiac: Regular Rhythm
GI: Soft, Non Tender and Normal Bowel Sounds
Neuro: Awake, Alert and Oriented
Hematologic/Lymphatic: No Lymphadenopathy
Psych: Calm
Impression / Plan
-
83-year-old male who underwent TAVR 04/17/2024 and presents with shoulder discomfort and a hot flash and presents in A-fib. Patient has a history of coronary artery disease/coronary artery bypass grafting/, stenting of vein graft to OM 2020, PAF,
anticoagulation with Eliquis. He underwent TAVR #26mm Evolut 04/17/2024 and was noted to have postprocedure new left bundle. Now presents with symptoms noted above
Left shoulder discomfort some low-grade sensation since the TAVR procedure he has had some intermittent increases in his symptoms. Patient's had similar symptoms he is associated with angina. It is possible some of the symptoms represent angina
and are more prominent when he is having A-fib with RVR. Patient also had a hot flash today which also could be associated with the development of A-fib with RVR. Unclear if any of his shoulder discomfort is musculoskeletal in nature.
Significance of mild troponin abnormality is unclear in this patient who had recent TAVR and had A-fib with RVR with underlying coronary artery bypass grafting.
-Monitor on telemetry
-Rate control A-fib with IV Cardizem
-Continue aspirin
-May consider transitioning Eliquis to heparin
-Nitrates.
A-fib. Patient with history of PAF was in sinus during last hospitalization.
-Cautiously rate control with IV Cardizem.
-Monitor closely for development of bradycardia. Patient had sinus rhythm with a heart rate of 79 on 04/18/2024 but also a new left bundle
.
TAVR
-Medtronic Elvolt -04/17/2024
-Reassess with echo
.
coronary artery disease/coronary artery bypass grafting /history of coronary stenting vein graft to 2020
-Serial troponins
-Additional medical therapy as noted above
.
Data Reviewed
-
EKG: Report Reviewed by me
Radiology: Report Reviewed by me
CT Scan: Report Reviewed by me
Ultrasound: Report Reviewed by me
MRI: Report Reviewed by me
Medical Tests (Nuc Med, Echo etc): Report Reviewed by me
Labs: Labs Reviewed by me
--- NOTE | 2024-04-22 08:09 | PN.CDI ---
CDI
- -
CDI:
Physician Documentation Request
Admit Date: 04/17/24 05:[address] Surgery,
Please review the following and provide your response in the progress notes.
Clinical Indicators:
- 04/17 Op Report 'Acute on chronic congestive heart failure' without specificity
- 04/18 Echo EF 60-65%
- 04/18 DC Summary LVEDP 28 mmHg
Please provide further specificity regarding the most likely type of CHF you are evaluating, treating or monitoring.
Acute on chronic systolic CHF
Acute on chronic diastolic CHF
Acute on chronic combined systolic and diastolic CHF
Other
Use of terms such as suspected, likely, concern for, or probable (associated with a specific diagnosis that is being evaluated, monitored, or treated as if it exists) are acceptable and can be coded in the inpatient setting, when documented at the
time of discharge.
Thank you,
Geraldine Asif RN
CDI Specialist
Please use your independent medical judgment in providing your response.
== END 2024-04-18 14:59 | disposition home or self-care (01) | DRG 266 ==
LOC: IVU 05:13
PROVIDERS: Clinical Nurse Specialist Acute Care; ADMITTING PHYSICIAN Thoracic Surgery (Cardiothoracic Vascular Surgery); ATTENDING PHYSICIAN Thoracic Surgery (Cardiothoracic Vascular Surgery); FAMILY PHYSICIAN Family Medicine; OTHER PHYSICIAN Internal Medicine Cardiovascular Disease
PROC: 02RF38Z Replacement of Aortic Valve with Zooplastic Tissue, Percutaneous Approach (ICD-10-PCS; 2024-04-17)
DX: I35.0 Nonrheumatic aortic (valve) stenosis (principal); I50.43 Acute on chronic combined systolic (congestive) and diastolic (congestive) heart failure; E78.5 Hyperlipidemia, unspecified; K44.9 Diaphragmatic hernia without obstruction or gangrene; K21.9 Gastro-esophageal reflux disease without esophagitis; I25.10 Atherosclerotic heart disease of native coronary artery without angina pectoris; I44.7 Left bundle-branch block, unspecified; I48.0 Paroxysmal atrial fibrillation; I11.0 Hypertensive heart disease with heart failure; E11.9 Type 2 diabetes mellitus without complications; I25.2 Old myocardial infarction; Z79.01 Long term (current) use of anticoagulants; Z79.82 Long term (current) use of aspirin; Z79.84 Long term (current) use of oral hypoglycemic drugs; Z79.899 Other long term (current) drug therapy; Z90.5 Acquired absence of kidney; Z95.1 Presence of aortocoronary bypass graft
CPT/HCPCS: 93308; 33361; 36415; 71045; 71046; 80048; 80053; 81003; 82248; 82962; 83036; 83880; 85025; 85027; 85347; 85610; 85730; 86850; 86900; 86901; 87070; 93005; 93306; 93321; 93325; C1760; C1769; C1894; Q9967

== ENCOUNTER 2024-04-20 15:15 | Inpatient (IN) | payer OTHER, SELFPAY ==
[2024-04-20] VITALS (36 sets, daily range): BP systolic 84–157; BP diastolic 49–95; BMI 29.5; BMI 28.9
[2024-04-20 11:31] LABS: ALT (SGPT) 16 U/L (0-50); AST (SGOT) 27 U/L (17-59); Albumin 3.6 g/dl (3.5-5.0); Alkaline Phosphatase 83 U/L (38-126); Blood Urea Nitrogen 19 mg/dl (9-20); Calcium 8.9 mg/dl (8.4-10.2); Carbon Dioxide 24 mmol/L (22-30); Chloride 101 mmol/L (98-107); Estimated Creatinine Clearance 36 ml/min; Glucose 223 mg/dl (70-99); Potassium 4.1 mmol/L (3.5-5.1); Sodium 134 mmol/L (135-145); Total Bilirubin 1.4 mg/dl (0.2-1.3); eGFR 45.34
[2024-04-20] MEDS: MORPHINE SULFATE 2 MG IV (11:41)
[2024-04-20] MEDS: CARDIZEM 5 MG IV (11:44)
[2024-04-20 11:48] LABS: % Basophils 0.5 % (0-2); % Immature Granulocytes 0.3 % (0-0.5); % Lymphocytes 19.6 % (20.5-51.1); % Monocytes 9.5 % (1.7-9.3); % Neutrophils 68.1 % (42.2-75.2); Absolute Basophils 0.1 10^3/uL (0-0.2); Absolute Eosinophils 0.2 10^3/uL (0-0.7); Absolute Lymphocytes 1.8 10^3/uL (1.2-3.4); Absolute Monocytes 0.9 10^3/uL (0.1-0.6); Absolute Neutrophils 6.3 10^3/uL (1.4-6.5); Hematocrit 36.4 % (39.0-52.0); Hemoglobin 13.1 g/dL (13.0-18.0); Mean Corpuscular Volume 86.1 fL (80.0-94.0); Mean Platelet Volume 9.5 fL (7.4-10.4); Nucleated Red Blood Cells % 0 % (-); Platelet Count 155 10^3/uL (130-400); Red Blood Cell Count 4.23 10^6/uL (4.70-6.10); Red Cell Dist. Width 12.9 % (11.5-14.5); White Blood Cell Count 9.2 10^3/uL (4.8-10.8)
[2024-04-20 11:52] LABS: Troponin I 0.558 ng/ml
[2024-04-20] MEDS: CARDIZEM 125 IV (11:54)
--- NOTE | 2024-04-20 11:55 | ED.GENMED ---
History of Present Illness
<Katerina Betancourt BUSINESS PROCESS LEAD - Last Filed: 04/21/24 19:51>
General
Chief Complaint: Chest Pain
Source: patient and spouse
Exam Limitations: none
Time Seen by Provider: 04/20/24 11:05
Nursing documentation reviewed up to this point in time: agreed with
History of Present Illness
History of Present Illness:
83-year-old male presents with left shoulder pain radiating up the left side of his neck and about the shoulder area.
Had TAVR 3 days ago, discharged 2 days ago and at that time he said he had the left shoulder pain. Today at 9:30 AM for breakfast he developed 'like my whole body felt like it was on fire' then 'terrific pain' in left shoulder radiating up neck.
This episode lasted 10 minutes, is still there but much improved. Patient denies shortness of breath, abdominal pain, nausea vomiting.
Received ASA 324 mg and NTG x 1 en route with no change in the pain.
EMS gave Cardizem 10 mg IV as they noted Afib with RVR, Pt arrives with HR 120's - 140's.
Past History
<Katerina Betancourt BUSINESS PROCESS LEAD - Last Filed: 04/21/24 19:51>
Past History
ED Past Medical History: CAD, GERD (Hiatal hernia), HTN, Hypercholesterolemia, NIDDM, Valvular disease and Other (Salmonella, ulcers)
ED Past Surgical History: Cardiac (CABG 1993, angioplasty with stents October 2004. Cardiac catheter 2008, medical management), Cholecystectomy (Laparoscopic cholecystectomy December 2010) and Other
Social History
Tobacco: Non-smoker
Alcohol: None
Drug: None
Personal:
Living: with family
Family History
Family History: Diabetes and Hypertension; Negative Sudden
Review of Systems
<Katerina Betancourt, BUSINESS PROCESS LEAD - Last Filed: 04/21/24 19:51>
Review of Systems
Allergies reviewed?: Yes
All Other Systems: ROS reviewed and negative except as documented in HPI and ROS
Constitutional: Denies fever
Respiratory: Denies trouble breathing
Cardiac: Reports chest pain; Denies diaphoresis, palpitations or syncope
ABD/GI: Denies abdominal pain, nausea, vomiting or diarrhea
: Denies dysuria or difficulty voiding
Musculoskeletal: Denies edema
Skin: Reports no symptoms
Neurological: Reports no symptoms
Phy Exam
<Katerina Betancourt, BUSINESS PROCESS LEAD - Last Filed: 04/21/24 19:51>
Physical Exam
Physical Exam:
GENERAL: No acute distress. A&Ox3.
CONSTITUTIONAL: Afebrile.
EYES: PERRL, conjunctivae normal
ENMT: moist mucus membranes, Pharynx nl
RESPIRATORY: Regular respirations, nonlabored, lungs clear.
CARDIOVASCULAR: Tachycardic, A-fib with RVR on monitor, no murmurs, no rubs.
GI: Soft, nontender, normal BS
MUSCULOSKELETAL: Moves with ease. Well perfused.
SKIN: Warm, dry, pink
PSYCH: Normal mood and affect. Well kept, interactive and appropriate
NEUROLOGIC: Awake, alert and oriented. No focal neurological deficits
Scores
<Katerina Betancourt, BUSINESS PROCESS LEAD - Last Filed: 04/21/24 19:51>
Heart Score for Chest Pain Patients
STEMI patient?: No
History: Moderately Suspicious
ECG: Normal
Age: >/= 65 years
Risk Factors: 1 or 2 Risk Factors
Troponin: >/= 3 x Normal Limit
Heart Score for Chest Pain Patients: 6
Heart Score Risk: 20.3% MACE over next 6 weeks
<Anmol Wilson, DO - Last Filed: 04/22/24 13:51>
Heart Score for Chest Pain Patients
Heart Score for Chest Pain Patients: 6
Heart Score Risk: 20.3% MACE over next 6 weeks
Course
<Katerina Betancourt BUSINESS PROCESS LEAD - Last Filed: 04/21/24 19:51>
Orders/Labs/Results
Orders:
Orders
04/20/24 Lunch
2000 calorie (17 carb) Diabetic
At Your Request: Limited, Film Replacement Orderer Required
04/20/24 10:40
EKG [Electrocardiogram (*1)] Urgent
Reason for Study: Chest Pain
EKG- Treatment ONCE
04/20/24 10:55
Complete Blood Count/With Diff Urgent
Comprehensive Metabolic Panel Urgent
Troponin I Urgent
04/20/24 11:24
Diltiazem 125 mg/125 ml Nss [Cardizem] 125 mg in 125 ml IV NOW
Initial dose in mg/hr, then titrate:: 5
Titrate to keep:: Heart rate 80-100 bpm
Titrate by mg/hr:: 5 mg/hr
Frequency of titrations (minutes):: 15
Maximum dose in mg/hr:: 15
Diltiazem HCl [Cardizem] 5 mg IV NOW STA
04/20/24 11:35
Morphine Sulfate 2 mg IV NOW STA
04/20/24 12:45
Electrocardiogram (*1) Urgent
Reason for Study: Abnormal EKG
04/20/24 14:58
Admit/Transfer Patient As Directed
Co-Sign Provider:
Level of Care: Inpatient admission
Assign to:: IVU
Physician / Group: deniz mandujano
Diagnosis: Rapid fib
Reason for Hospitalization: Rapid fib
Expected length of stay greater than two midnights?: Yes
ELOS- Estimated Length of Stay in days: 2
I certify the patient meets the requirements for IP care: Yes
Metoprolol [Lopressor] 50 mg PO NOW STA
04/20/24 15:04
Code Status As Directed
Resuscitation Status: Do not resuscitate
Reached after discussion with pt or family/Healthcare POA: Yes
04/20/24 15:05
DNR Bracelet Application ONCE
04/20/24 16:41
Alprazolam [Xanax] 0.25 mg PO TID
Dextrose 50%-Water [Dextrose 50% Syringe] 12.5 grams IV [id number] PRN
Diltiazem 125 mg/125 ml Nss [Cardizem] 125 mg in 125 ml IV PER PROTOCOL
Initial dose in mg/hr, then titrate:: 10
Titrate to keep:: Heart rate 80-100 bpm
Titrate by mg/hr:: 5 mg/hr
Frequency of titrations (minutes):: 15
Maximum dose in mg/hr:: 15
Glucagon [GlucaGen] 1 mg IM PRN PRN
HydrALAZINE [Apresoline] 10 mg PO TIDPRN PRN
Insulin Aspart Corrective Mod [Novolog Flexpen-Moderate Resistance] See Protocol SC AC
Nitroglycerin Sublingual [Nitrostat (Sublingual)] 0.4 mg SL [id number] PRN
Ondansetron Injectable [Zofran] 4 mg IV Q6HPRN PRN
Oxycodone [Roxicodone] 5 mg PO Q4HPRN PRN
04/20/24 16:41
Add On- LAB Routine
Tests Added?: HgbA1C to today's lab
CARDIOLOGY CONSULT Routine
Consulting Provider: Tulio Victor
Was physician already notified: Yes
Activity As Directed
Activity Level: Ambulate
Bedside Glucose Monitoring As Directed
Frequency: AC&HS
Additional Instructions:: Change to q6h if pt on TPN, tube feeding or not eating
Vital Signs As Directed
Frequency: Per unit guidelines
04/20/24 17:16
Troponin I Q6H
04/20/24 20:00
Apixaban [Eliquis] 5 mg PO BID
Glimepiride [Amaryl] 2 mg PO BID
Vit C/Vit E/Lutein/Min/[place]-3 [Ocuvite Softgel] 1 cap PO BID
04/20/24 22:00
Atorvastatin [Lipitor] 10 mg PO HS
04/20/24 22:41
Troponin I Q6H
04/21/24 02:19
Basic Metabolic Panel IN AM
Complete Blood Count/No Diff IN AM
Magnesium IN AM
04/21/24 08:00
Aspirin Low Dose EC [Aspir Low (Enteric Coated)] 81 mg PO DAILY
Lisinopril [Zestril] 20 mg PO DAILY
Pantoprazole [Protonix] 40 mg PO DAILY
04/22/24 02:14
Basic Metabolic Panel IN AM
Complete Blood Count/No Diff IN AM
04/23/24 06:00
Basic Metabolic Panel IN AM
Abnormal Lab Results
04/20/24
10:55
RBC 4.23 L 10^6/uL
(4.70-6.10)
Hct 36.4 L %
(39.0-52.0)
Absolute Monos (auto) 0.9 H 10^3/uL
(0.1-0.6)
Lymphocytes % 19.6 L %
(20.5-51.1)
Monocytes % 9.5 H %
(1.7-9.3)
Sodium 134 L mmol/L
(135-145)
Creatinine 1.5 H mg/dL
(0.7-1.3)
Glucose 223 H mg/dl
(70-99)
Total Bilirubin 1.4 H mg/dl
(0.2-1.3)
Troponin I 0.558 H* ng/ml
Total Protein 6.0 L g/dl
(6.3-8.2)
04/20/24 10:55
04/20/24 10:55
Vital Signs
Initial and Last Documented VS:
Initial Vital Signs
BP
113/69
04/20/24 10:43
Last Documented Vital Signs
Temp Pulse Resp BP Pulse Ox
97.5 F 77 18 127/60 94
04/22/24 07:44 04/22/24 13:00 04/22/24 07:44 04/22/24 13:00 04/22/24 07:44
<Anmol Wilson DO - Last Filed: 04/22/24 13:51>
Orders/Labs/Results
Orders:
Orders
04/20/24 Lunch
2000 calorie (17 carb) Diabetic
At Your Request: Limited, Film Replacement Orderer Required
04/20/24 10:40
EKG [Electrocardiogram (*1)] Urgent
Reason for Study: Chest Pain
EKG- Treatment ONCE
04/20/24 10:55
Complete Blood Count/With Diff Urgent
Comprehensive Metabolic Panel Urgent
Troponin I Urgent
04/20/24 11:24
Diltiazem 125 mg/125 ml Nss [Cardizem] 125 mg in 125 ml IV NOW
Initial dose in mg/hr, then titrate:: 5
Titrate to keep:: Heart rate 80-100 bpm
Titrate by mg/hr:: 5 mg/hr
Frequency of titrations (minutes):: 15
Maximum dose in mg/hr:: 15
Diltiazem HCl [Cardizem] 5 mg IV NOW STA
04/20/24 11:35
Morphine Sulfate 2 mg IV NOW STA
04/20/24 12:45
Electrocardiogram (*1) Urgent
Reason for Study: Abnormal EKG
04/20/24 14:58
Admit/Transfer Patient As Directed
Co-Sign Provider:
Level of Care: Inpatient admission
Assign to:: IVU
Physician / Group: deniz mandujano
Diagnosis: Rapid fib
Reason for Hospitalization: Rapid fib
Expected length of stay greater than two midnights?: Yes
ELOS- Estimated Length of Stay in days: 2
I certify the patient meets the requirements for IP care: Yes
Metoprolol [Lopressor] 50 mg PO NOW STA
04/20/24 15:04
Code Status As Directed
Resuscitation Status: Do not resuscitate
Reached after discussion with pt or family/Healthcare POA: Yes
04/20/24 15:05
DNR Bracelet Application ONCE
04/20/24 16:41
Alprazolam [Xanax] 0.25 mg PO TID
Dextrose 50%-Water [Dextrose 50% Syringe] 12.5 grams IV [id number] PRN
Diltiazem 125 mg/125 ml Nss [Cardizem] 125 mg in 125 ml IV PER PROTOCOL
Initial dose in mg/hr, then titrate:: 10
Titrate to keep:: Heart rate 80-100 bpm
Titrate by mg/hr:: 5 mg/hr
Frequency of titrations (minutes):: 15
Maximum dose in mg/hr:: 15
Glucagon [GlucaGen] 1 mg IM PRN PRN
HydrALAZINE [Apresoline] 10 mg PO TIDPRN PRN
Insulin Aspart Corrective Mod [Novolog Flexpen-Moderate Resistance] See Protocol SC AC
Nitroglycerin Sublingual [Nitrostat (Sublingual)] 0.4 mg SL [id number] PRN
Ondansetron Injectable [Zofran] 4 mg IV Q6HPRN PRN
Oxycodone [Roxicodone] 5 mg PO Q4HPRN PRN
04/20/24 16:41
Add On- LAB Routine
Tests Added?: HgbA1C to today's lab
CARDIOLOGY CONSULT Routine
Consulting Provider: Tulio Victor
Was physician already notified: Yes
Activity As Directed
Activity Level: Ambulate
Bedside Glucose Monitoring As Directed
Frequency: AC&HS
Additional Instructions:: Change to q6h if pt on TPN, tube feeding or not eating
Vital Signs As Directed
Frequency: Per unit guidelines
04/20/24 17:16
Troponin I Q6H
04/20/24 20:00
Apixaban [Eliquis] 5 mg PO BID
Glimepiride [Amaryl] 2 mg PO BID
Vit C/Vit E/Lutein/Min/[place]-3 [Ocuvite Softgel] 1 cap PO BID
04/20/24 22:00
Atorvastatin [Lipitor] 10 mg PO HS
04/20/24 22:41
Troponin I Q6H
04/21/24 02:19
Basic Metabolic Panel IN AM
Complete Blood Count/No Diff IN AM
Magnesium IN AM
04/21/24 08:00
Aspirin Low Dose EC [Aspir Low (Enteric Coated)] 81 mg PO DAILY
Lisinopril [Zestril] 20 mg PO DAILY
Pantoprazole [Protonix] 40 mg PO DAILY
04/22/24 02:14
Basic Metabolic Panel IN AM
Complete Blood Count/No Diff IN AM
04/23/24 06:00
Basic Metabolic Panel IN AM
Abnormal Lab Results
04/20/24
10:55
RBC 4.23 L 10^6/uL
(4.70-6.10)
Hct 36.4 L %
(39.0-52.0)
Absolute Monos (auto) 0.9 H 10^3/uL
(0.1-0.6)
Lymphocytes % 19.6 L %
(20.5-51.1)
Monocytes % 9.5 H %
(1.7-9.3)
Sodium 134 L mmol/L
(135-145)
Creatinine 1.5 H mg/dL
(0.7-1.3)
Glucose 223 H mg/dl
(70-99)
Total Bilirubin 1.4 H mg/dl
(0.2-1.3)
Troponin I 0.558 H* ng/ml
Total Protein 6.0 L g/dl
(6.3-8.2)
04/20/24 10:55
04/20/24 10:55
Vital Signs
Initial and Last Documented VS:
Initial Vital Signs
BP
113/69
04/20/24 10:43
Last Documented Vital Signs
Temp Pulse Resp BP Pulse Ox
97.5 F 77 18 127/60 94
04/22/24 07:44 04/22/24 13:00 04/22/24 07:44 04/22/24 13:00 04/22/24 07:44
<Katerina Betancourt, BUSINESS PROCESS LEAD - Last Filed: 04/21/24 19:51>
MDM/Problems Addressed
Differential Diagnosis Includes:
ACS, angina, dissection,
MDM/Problems Addressed:
83-year-old male presents with left shoulder pain radiating up the left side of his neck and about the shoulder area.
Had TAVR 3 days ago, discharged 2 days ago and at that time he said he had the left shoulder pain. Today at 9:30 AM for breakfast he developed 'like my whole body felt like it was on fire' then 'terrific pain' in left shoulder radiating up neck.
This episode lasted 10 minutes, is still there but much improved.
Received ASA 324 mg and NTG x 1 en route with no change in the pain.
EMS gave Cardizem 10 mg IV as they noted Afib with RVR, Pt arrives with HR 120's - 140's.
EKG: A-fib with RVR, heart rate 130s
12 PM:
CBC unremarkable
CMP: Creatinine 1.5, his baseline
Troponin 0.558, expected 3 days post TAVR, will trend
On Cardizem drip, heart rate now 105-[address] Woodard in to see pt: I just eyeballed Jaxon Vimal - no chance this is dissection and would not do CTA . Cr up a bit at 1.5. He says it�s his typical angina and he�s had it since Sunday without remission. Got worse today�when I bent over
to wipe myself after a shit� Trop 0.558 but no idea what that means as he�s in AF 130 and had a TAVR 3 days ago. He is not toxic
Would admit , trend enzymes and control ventricular rate. Wisdom-LAD AND SVG- OM looked good on [facility] cath 03/03. It�s unlikely that cath will identify an intervenable problem
Pt admitted to Hospitalist
<Katerina Betancourt, BUSINESS PROCESS LEAD - Last Filed: 04/21/24 19:51>
*Pulse Oximetry
Patient hypoxic: no
Comment: 97% room air
*EKG
EKG Intrepretation Date: 04/20/24
Interpretation: abnormal
Heart Rate: 130
Rate: tachycardiac
Rhythm: a-fib
[place]: normal axis
QRS Pattern: left bundle branch block
Ischemia: no ischemia
*Critical Care Note
Total Time (30-74mins, 75-104mins- exclusive of procedures): Not Applicable
ED Attending Note
<Katerina Betancourt, BUSINESS PROCESS LEAD - Last Filed: 04/21/24 19:51>
-
Portions of this chart may have been created with voice recognition software.� Occasional wrong word or��sound alike� substitutions may have occurred due to the inherent limitations of voice recognition software.
<Anmol Wilson, DO - Last Filed: 04/22/24 13:51>
ED Attending Note
Patient seen and examined by attending physician: Yes
ED Attending Note:
I have reviewed and agree with history and treatment plan by Dania betancourt. Patient with left shoulder pain, doubt PE or dissection. Admit for further evaluation and rate control.
Discharge Plan
Departure
Patient Disposition: Admit
Date of Disposition: 04/20/24
Time of Disposition: 13:22
Admit to: Telemetry
Presentation/result/management discussed w/ accepting MD/DO: Hospitalist
Condition: Fair
Discharge Problem:
Atrial fibrillation with RVR
Interventions
Interventions:
*Risk Screen - Suicide Last Done: 04/20/24 11:23
*General Assessment Last Done: 04/20/24 10:48
*Neglect/Abuse Screening Last Done: 04/20/24 10:48
ED- Fall Risk Assessment Last Done: 04/20/24 10:52
*ED COVID-19 Vaccine History Last Done: 04/20/24 10:48
*Nursing Disposition Last Done: 04/20/24 16:27
ED- Cardiac Assessment Last Done: 04/20/24 11:10
Discharge Date and Time
Discharge Date/Time: 04/20/24 16:27
--- NOTE | 2024-04-20 14:13 | CONSULT.CT ---
Consultation
-
Performing Provider: Mike Stearns PA-C
Reason for Consultation: Chest Pain, Afib with RVR, S/P TAVR on 04/17
Patient History
Physicians
Outpatient Counter Clerk [employer]: Tulio Victor MD
History of Present Illness
Jaxon Celis is an 83-year-old white male with a significant past medical history for severe aortic stenosis status post right transfemoral transcatheter aortic valve replacement with a 26 mm Medtronic Evolut valve, paroxysmal atrial fibrillation on
[facility] outpatient, CAD status post CABG x 4 in 1993 as well as several PCIs, vwc-kkkeggi-loqdenumu diabetes mellitus type 2, history of colon cancer, degenerative joint disease, recurrent Salmonella gastroenteritis, hiatal hernia, diverticulosis,
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 The patient underwent transcatheter aortic valve replacement this past . He was discharged home the following day with a heart monitor given
a new left bundle branch block. Notably the patient's home beta-chay was also held at discharge due to this. The patient tells me that he was preparing his medications for the week and arranging doctors appointments when he felt a sudden onset
of full body pain/burning, severe pain in his left shoulder and neck, and felt that he could not walk. His alerted EMS who came and transported the patient to the ED. It was noted at that time that the patient was in A-fib with rapid
ventricular response. IV Cardizem was administered and route. Patient was also given 324 mg aspirin as well as sublingual nitroglycerin. The nitroglycerin did not help.
On arrival to the ED the patient received IV morphine which did help relieve his pain. He states the pain is about a 1 out of 10 at this time. He relates to me that he had left shoulder pain following his TAVR procedure prior to discharge. The
pain he is experiencing now is similar to the pain he had prior to discharge however this time around it is much more severe. Patient does have an extensive cardiac history with prior CABG as well as multiple PCI's. He tells me his sample puller
tells him to take nitroglycerin on a semiroutine basis when he experiences chest pain. He does have a prior history of paroxysmal atrial fibrillation and has had a cardioversion in the past. He tells me he is not chronically in A-fib however he
does take Eliquis. Notably his troponins are elevated and there is some evidence of inferior ST depressions on EKG.
Currently he is resting comfortably in the emergency department. He is accompanied by his . He relates that he has had no issues with the surgical sites and his groins have not had any bleeding or oozing. There is no progressive hematomas
noted and he otherwise feels that he is recovering well from his surgical procedure.
Past Medical History
Severe status post right transfemoral transcatheter aortic valve replacement with a 26 mm Medtronic evolute valve on 04/17/[address] Barnhart and Vance
Paroxysmal atrial fibrillation on Eliquis
CAD status post CABG x 4 in 1993 as well as multiple PCI's
Ynh-csvlzkw-ejfsahzqh diabetes mellitus type 2
History of colon cancer
Degenerative joint disease
Recurrent Salmonella gastroenteritis
Large hiatal hernia
Diverticulosis
Basal cell carcinoma
GERD
Arthritis
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
Past Surgical History
Right transfemoral transcatheter aortic valve replacement on 04/17/2024
CABG in 1993
Cholecystectomy
Social History
Alcohol: None
Drug: None
Tobacco: Non-Smoker
Personal:
Living: With Family
Allergies
Allergy/AdvReac Type Severity Reaction Status Date / Time
acetaminophen Allergy sick Verified 04/20/24 10:54
feeling in
stomach
and chest,
rapid
heart rate
NSAIDS (Non-Steroidal Allergy never Verified 04/20/24 10:54
Anti-Inflamma takes
[Nsaids] NSAIDS due
to having
only 1
kidney
Home Medications
�Medication �Instructions �Recorded �Confirmed �Type
alprazolam 0.25 mg tablet 0.25 mg PO TID anxiety 05/05/11 04/20/24 History
simvastatin 20 mg tablet 20 mg PO HS High Cholesterol 07/17/17 04/20/24 History
aspirin 81 mg tablet,delayed 81 mg PO DAILY #1 tab 09/13/21 04/20/24 Rx
release
pantoprazole 40 mg tablet,delayed 40 mg PO DAILY #90 tabs 09/13/21 04/20/24 Rx
release
glimepiride 2 mg tablet 2 mg PO BID Diabetes 03/01/24 04/20/24 History
nitroglycerin 0.4 mg sublingual 0.4 mg sublingual [id number] PRN 03/01/24 04/20/24 History
tablet chest pain
vitamins A,C,G-gmiu-epkgkq 2,148 1 tab PO BID Supplement 03/01/24 04/20/24 History
mcg-113 mg-45 mg-17.4 mg tablet
(PreserVision AREDS)
amlodipine 10 mg tablet 10 mg PO DAILY #30 tabs 03/04/24 04/20/24 Rx
lisinopril 20 mg tablet 20 mg PO DAILY #30 tabs 03/04/24 04/20/24 Rx
hydralazine 10 mg tablet 10 mg PO TIDPRN PRN systolic blood 04/04/24 04/20/24 History
pressure greater than 170 mmHg
apixaban 5 mg tablet (Eliquis) 5 mg PO BID Blood clot 04/18/24 04/20/24 Rx
prevention/tx #60 tabs
Review of Systems
-
History Source: Patient
General: Reports Fatigue
HEENT: Reports No Symptoms
Respiratory: Reports No Symptoms
Cardiac: Reports Chest Pain, CAD, Known Vascular Disease and Palpitations
Abdomen/GI: Reports No Symptoms
: Reports No Symptoms
Musculoskeletal: Reports Joint Pain
Skin: Reports No Symptoms
Neurological: Reports No Symptoms
Vascular: Reports No Symptoms
Physical Exam
Vital Signs
Temp 98.5 F 04/20/24 10:45
Temp route: Oral 04/20/24 10:45
Pulse 130 04/20/24 12:30
Rhythm: Atrial fibrillation 04/20/24 12:30
Resp Rate 19 04/20/24 12:30
Blood pressure 135/78 04/20/24 12:30
Blood pressure extremity used: Right upper arm 04/20/24 10:45
Position: Lying 04/20/24 10:45
MAP (cuff-Alex Monitor) 92 04/20/24 12:30
SaO2 97 04/20/24 12:30
Oxygen Mode of Delivery Room air 04/20/24 10:45
Acceptable pain level during hospitalization? 1 04/20/24 10:48
Can the patient verbally communicate their pain? Yes 04/20/24 12:41
Pain scale ratin 04/20/24 12:41
Actual Weight 83 kg 04/20/24 10:44
Body Mass Index (BMI) 29.5 04/20/24 10:44
Labs
04/20/24 10:55
04/20/24 10:55
Troponin I 0.558 ng/ml H* 04/20/24 10:55
Exam
General: Well Developed, Well Nourished and No Apparent Distress
HEENT: Normocephalic and Anicteric
Neck: Trachea Midline
Respiratory: Clear
Cardiac: S1/S2 and Irregular Rhythm
GI: Soft, Non Tender and Non Distended
Rectal: Deferred by Provider
Skin: Warm and Dry
Neuro: Awake, Alert and Oriented
Extremities: Pulses (peripheral pulses equal)
Psych: Calm
Assessment / Plan
-
This is a pleasant 83-year-old gentleman who recently underwent right transfemoral transcatheter aortic valve replacement. The procedure itself was reportedly unremarkable and the patient was discharged the following day. Unfortunately the patient
did develop a new left bundle branch block and therefore his beta-chay was held prior to discharge. This may have contributed to him developing rapid atrial fibrillation. Thankfully he is already anticoagulated with Eliquis. Will defer medical
management of his atrial fibrillation to cardiology.
Also of note he does have positive troponins and some inferior ST depressions on EKG. Given his extensive coronary history he may require further workup of this, however his angina is chronic in nature and he has been told to take nitroglycerin on
a semiroutine basis in the past. Again we will defer further workup to his primary team as well as cardiology. While aortic dissection is certainly a possibility given his recent procedure caution must be taken getting a CTA given his evolving
acute kidney injury. I discussed this in detail with the ER physician who will await cardiology input. If he is to undergo cardiac cath, root aortography may be done at that time to avoid multiple contrast exposures.
From a surgical perspective he is healing quite well. His groins are soft bilaterally and there is no evidence of hematoma or vascular issues. Given this, we will follow the patient peripherally while here unless further surgical needs arise. I
discussed this plan with Dr. Glenn Barnhart who is in agreement and will provide input in the form of an addendum.
Data Reviewed
-
EKG: Report Reviewed by me and Discussed with Physician
Claims Specialist: Image Personally Visualized and interpreted (reviewed prior cardiac cath)
Echo: Image Personally Visualized and interpreted (reviewed post op echo)
Radiology: Image Personally Visualized and interpreted
Labs: Labs Reviewed by me and Discussed with Physician
Old Records: Reviewed
Total Time Spent with Patient (in minutes): 65
--- NOTE | 2024-04-20 14:21 | HPS.HSE ---
Addendum entered and electronically signed by Mohinder Vega MD 04/20/24 15:11:
Correction, for DVT prophylaxis�continue Eliquis
Original Note:
Family Physician
-
Family Physician: Linwood Johnson
Chief Complaint
-
Left shoulder pain, palpitations
History of Present Illness
83-year-old male with a past medical history of severe aortic stenosis status post TAVR on 04/17/2024, CAD status post CABG 1993, paroxysmal atrial fibrillation on Eliquis, hypertension, hyperlipidemia, type 2 diabetes, and osteoarthritis presents
with worsening left shoulder pain and palpitations. Patient had his TAVR on 04/17/2024, was discharged on 04/18/2024. He reports starting to have left shoulder pain on the day of discharge, it has since worsened. Patient received aspirin 325 mg,
and sublingual nitroglycerin en route with no improvement. Associated symptoms include palpitations. He was found to have rapid atrial fibrillation, and started on a Cardizem drip. He denies shortness of breath, fever, chills. No
lightheadedness, no dizziness. No black or bloody stools. No dysuria.
Medical History
Past Medical History
Past Medical History: Reports Other
Additional Past Medical History:
1. Congestive heart failure
2. CAD s/p CABG 1993
3. Hypertension
4. Hyperlipidemia
5. Hiatal hernia
6. Diverticulosis
7. Basal cell carcinoma
8. GERD
9. 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
10. Paroxysmal atrial fibrillation
11. Type 2 diabetes
12. Osteoarthritis
13. Severe aortic stenosis status post TAVR
14. Left bundle branch block
Past Surgical History: Reports Other
Additional Past Surgical History:
TAVR 2023
CABG 1993
PCI
Hernia repair
Cholecystectomy
Social History
Tobacco: Non-smoker
Alcohol: None
Drug: None
Personal:
Living: With Family
Family History
Family History: Not pertinent
Allergies / Home Medications
Allergies reflects when Allergies were last updated in [employer].
Home Medications with original date entered in [employer]
Allergy/Medication List:
Allergies
Home Medications Table - record
�Medication �Instructions �Recorded �Confirmed
alprazolam 0.25 mg tablet 0.25 mg PO TID anxiety 05/05/11 04/20/24
simvastatin 20 mg tablet 20 mg PO HS High Cholesterol 07/17/17 04/20/24
aspirin 81 mg tablet,delayed 81 mg PO DAILY #1 tab 09/13/21 04/20/24
release
pantoprazole 40 mg tablet,delayed 40 mg PO DAILY #90 tabs 09/13/21 04/20/24
release
glimepiride 2 mg tablet 2 mg PO BID Diabetes 03/01/24 04/20/24
nitroglycerin 0.4 mg sublingual 0.4 mg sublingual [id number] PRN 03/01/24 04/20/24
tablet chest pain
vitamins A,C,P-gdcf-elevpb 2,148 1 tab PO BID Supplement 03/01/24 04/20/24
mcg-113 mg-45 mg-17.4 mg tablet
(PreserVision AREDS)
amlodipine 10 mg tablet 10 mg PO DAILY #30 tabs 03/04/24 04/20/24
lisinopril 20 mg tablet 20 mg PO DAILY #30 tabs 03/04/24 04/20/24
hydralazine 10 mg tablet 10 mg PO TIDPRN PRN systolic blood 04/04/24 04/20/24
pressure greater than 170 mmHg
apixaban 5 mg tablet (Eliquis) 5 mg PO BID Blood clot 04/18/24 04/20/24
prevention/tx #60 tabs
Allergy/AdvReac Type Severity Reaction Status Date / Time
acetaminophen Allergy sick Verified 04/20/24 10:54
feeling in
stomach
and chest,
rapid
heart rate
NSAIDS (Non-Steroidal Allergy never Verified 04/20/24 10:54
Anti-Inflamma takes
[Nsaids] NSAIDS due
to having
only 1
kidney
Review of Systems
-
A 12 point ROS was completed and negative except as noted: Yes
Physical Exam
Vital Signs
Vital Signs
Temp Pulse Resp BP Pulse Ox
98.5 F 130 19 135/78 97
04/20/24 10:45 04/20/24 12:30 04/20/24 12:30 04/20/24 12:30 04/20/24 12:30
Physical Exam
General: Well Developed, Well Nourished and No Apparent Distress
HEENT: NormoCephalic, Anicteric, Moist mucous membranes and Atraumatic
Respiratory: Clear
Cardiac: Irregular Rhythm and Tachycardia
GI: Soft, Non Tender, Non Distended and Normal Bowel Sounds
Musculoskeletal: No Clubbing and No Cyanosis
Skin: Warm and Dry
Neuro: Awake, Alert and Oriented
Psych: Calm
Laboratory Results
-
04/20/24 10:55
04/20/24 10:55
Laboratory Results
Total Bilirubin 1.4 mg/dl (0.2-1.3) H 04/20/24 10:55
AST 27 U/L (17-59) 04/20/24 10:55
ALT 16 U/L (0-50) 04/20/24 10:55
Alkaline Phosphatase 83 U/L (38-126) 04/20/24 10:55
Troponin I 0.558 ng/ml H* 04/20/24 10:55
Impression/Plan
-
HPI: 83-year-old male with a past medical history of severe aortic stenosis status post TAVR on 04/17/2024, CAD status post CABG 1993, paroxysmal atrial fibrillation on Eliquis, hypertension, hyperlipidemia, type 2 diabetes, and osteoarthritis
presents with worsening left shoulder pain and palpitations. Patient had his TAVR on 04/17/2024, was discharged on 04/18/2024. He reports starting to have left shoulder pain on the day of discharge, it has since worsened. Patient received aspirin
325 mg, and sublingual nitroglycerin en route with no improvement. Associated symptoms include palpitations. He was found to have rapid atrial fibrillation, and started on a Cardizem drip. He denies shortness of breath, fever, chills. No
lightheadedness, no dizziness. No black or bloody stools. No dysuria.
#Rapid fib
Continue cardizem drip, eliquis
Start metoprolol tartrate 50 mg every 6 hours
C/s cardiology
#Left shoulder pain
No need for aortic dissection study as per Dr. Woodard
Trend troponins
#Severe s/p recent TAVR 04/17/24
Monitor
#Coronary artery disease status post CABG and PCI
Continue aspirin, statin, Eliquis
#Benign essential hypertension
Hold home amlodipine to give room for more rate controlling meds
Continue lisinopril 20 mg daily, hydralazine 10 mg 3 times daily as needed SBP greater than 170
#Type 2 diabetes
Continue glimepiride 2 mg twice a day, diabetic diet, sliding scale insulin
#Osteoarthritis
Tylenol, oxycodone as needed
DVT prophylaxis�subcu Lovenox
DNR confirmed by patient upon admission
Discussed with cardiology
Total time spent to see the patient on the floor, examine the patient, review data and lab results, discuss treatment plan with patient, nursing staff around 76 minutes.
[2024-04-20] MEDS: LOPRESSOR 50 MG PO (15:09)
--- NOTE | 2024-04-20 16:50 | W.PN.CD ---
Physical Exam
Vital Signs/Labs
Vital Signs
Temp Pulse Resp BP Pulse Ox
98.3 F 100 20 157/72 96
04/20/24 16:18 04/20/24 16:23 04/20/24 16:18 04/20/24 16:23 04/20/24 16:18
04/19/24 04/20/24 04/21/24
06:59 06:59 06:59
Actual Weight 81.3 kg
04/20/24 10:55
04/20/24 10:55
LAB Results
04/20/24
10:55
Troponin I 0.558 H*
Data Reviewed
-
Date of Service: April 20, 2024
[2024-04-20] MEDS: NITROGLYCERIN PREMIX 250 IV (17:08)
[2024-04-20] MEDS: XANAX 0.25 MG PO ×2 (17:11→21:57)
[2024-04-20 17:25] LABS: Glucose - Point of Care 196 mg/dl (70-99)
[2024-04-20] MEDS: NOVOLOG FLEXPEN-MODERATE RESISTANCE 1 UNITS SC (17:46)
--- NOTE | 2024-04-20 18:16 | PTCARENOTE ---
Received the patient from the ED in a stretcher. The patient ambulated to the bed without difficulty. The patient is aaox3, vss, 96% on RA. Afib is noted on the monitor with a HR of 100. Cardizem gtt running at 10mg/hr. He stated that his left
shoulder pain is a 1/10 on scale. He also stated that he has some pressure in his mid chest area. He stated that it has been ongoing for a long time, prior to his TVAR. A Holter monitor is in place.
Shortly after arriving in the floor a nitroglycerin was started at 5 mcg/min. Approximately a half hour later a 2.45 second pause was noted on the monitor and the patient's HR dropped to the high 50s - low 60s. I turned off his Cardizem gtt,
performed an ECG, and notified Dr. Victor. ECG showed Afib with a slow ventricular response and a LBBB. His nitro gtt was stopped per Dr. Victro's request. Shortly after he had a 4.36 second pause, pacer pads were placed on the patient and "Rose"Kayleigh was notified.
The patient has been asymptomatic this entire time.
--- NOTE | 2024-04-20 19:00 | PTCARENOTE ---
received pt from IVU- pt having long pauses, symptomatic and dizzy, BP stable. Transported to forestry farm laborer for temp wire.
--- NOTE | 2024-04-20 19:08 | PTCARENOTE ---
The patient has been having frequent pauses and just now had a 4.88 second pause. The patient stated that he felt lightheaded. He said he has been feeling lightheaded at times now. We moved the code cart in the room and attached him to the
defibrillator. Dr. Victor was notified and also Slick the CT PA. Dr. Victor requested the patient be moved to CVICU. The patient was moved to [id number]. Report given to Jean-Claude.
--- NOTE | 2024-04-20 19:35 | ITS.CL.PN ---
Valve Setter - Procedure Note
Procedure
Procedure Note:
TEMPORARY PACEMAKER REPORT
Date of Procedure: 04/20/2024
Referring: Tulio Victor MD
Indication: Sick sinus syndrome with A-fib with rapid ventricular response alternating with pauses up to 4.8 seconds
PROCEDURE SUMMARY:
Successful placement of temporary pacemaker via right femoral vein approach
DESCRIPTION OF PROCEDURE: A 6 Iranian sheath was placed in the right femoral vein. A 6 Iranian pacing catheter was advanced to the RV apex. Excellent thresholds were obtained (<0.5mA). The pacemaker was secured in place and left with a rate of 40
on demand mode at 15mA.
Radiation (mGy): 3.9
DAP (cm2.Gy): 0.6
Fluoroscopy time: 0.3 minutes
CONCLUSIONS: Successful placement of temporary pacemaker for 4.8-second pauses in the setting of sick sinus syndrome. Permanent pacemaker will be planned for tomorrow.
Copy to: Tulio Victor MD, Linwood Johnson MD
Mann Woodard MD, [facility], [facility]
--- NOTE | 2024-04-20 20:30 | PTCARENOTE ---
pt recieved from entry level lab technician with new R femoral venous pacer set to VVI 40, 15. Site looks good no hematoma. EKG completed, afib with slow ventricular response with ocasional V pacing. pt states feels much better, no lightheaded / dizziness. Pt
instructed to not bend legs/hip and to remain flat, verbalized understanding.
[2024-04-20] MEDS: LIPITOR 10 MG PO (21:57)
[2024-04-20] MEDS: AMARYL 2 MG PO (21:57)
[2024-04-20] MEDS: ULTRAM 25 MG PO (21:58)
[2024-04-20] MEDS: OCUVITE SOFTGEL 1 CAP PO (21:58)
[2024-04-20 21:59] LABS: Glucose - Point of Care 237 mg/dl (70-99)
[2024-04-21] VITALS (25 sets, daily range): BP systolic 117–150; BP diastolic 44–128
[2024-04-21] MEDS: DILAUDID 0.25 MG IV (00:17)
[2024-04-21 02:35] LABS: Hemoglobin 12.4 g/dL (13.0-18.0); Mean Corp Hgb Conc. 36.5 g/dL (33.0-37.0); Mean Corpuscular Hgb 31.2 pg (27.0-31.0); Mean Corpuscular Volume 85.4 fL (80.0-94.0); Mean Platelet Volume 9.4 fL (7.4-10.4); Platelet Count 162 10^3/uL (130-400); Red Blood Cell Count 3.98 10^6/uL (4.70-6.10); Red Cell Dist. Width 12.8 % (11.5-14.5); White Blood Cell Count 9.1 10^3/uL (4.8-10.8)
[2024-04-21 02:50] LABS: Blood Urea Nitrogen 21 mg/dl (9-20); Carbon Dioxide 24 mmol/L (22-30); Chloride 102 mmol/L (98-107); Estimated Creatinine Clearance 37 ml/min; Glucose 157 mg/dl (70-99); Magnesium 2.1 mg/dl (1.6-2.3); Potassium 4.2 mmol/L (3.5-5.1); Sodium 131 mmol/L (135-145); eGFR 53.84
[2024-04-21] MEDS: ROXICODONE 5 MG PO ×2 (04:23→21:11)
--- NOTE | 2024-04-21 07:42 | W.PN.HOSP.TC ---
Today's Communication/Plan
-
for PPM today
Assessment / Plan
Assessment / Plan
HPI: 83-year-old male with a past medical history of severe aortic stenosis status post TAVR on 04/17/2024, CAD status post CABG 1993, paroxysmal atrial fibrillation on Eliquis, hypertension, hyperlipidemia, type 2 diabetes, and osteoarthritis
presents with worsening left shoulder pain and palpitations. Patient had his TAVR on 04/17/2024, was discharged on 04/18/2024. He reports starting to have left shoulder pain on the day of discharge, it has since worsened. Patient received aspirin
325 mg, and sublingual nitroglycerin en route with no improvement. Associated symptoms include palpitations. He was found to have rapid atrial fibrillation, and started on a Cardizem drip. He denies shortness of breath, fever, chills. No
lightheadedness, no dizziness. No black or bloody stools. No dysuria.
#Sick sinus syndrome with A-fib with rapid ventricular response alternating with pauses
Appreciate cardiology input
S/p IV cardizem drip, metoprolol
Has temp pacing wire 04/20
For PPM today, continue eliquis
#Left shoulder pain
No need for aortic dissection study as per Dr. Woodard
#Elevated troponin
Follow-up cardiology recommendations
#Severe s/p recent TAVR 04/17/24
Monitor
#Coronary artery disease status post CABG and PCI
Continue aspirin, statin, Eliquis
#Benign essential hypertension
Hold home amlodipine to give room for more rate controlling meds
Continue lisinopril 20 mg daily, hydralazine 10 mg 3 times daily as needed SBP greater than 170
Stage III CKD
Trend creatinine, no NSAIDs/nephrotoxic drug
#Type 2 diabetes
Continue glimepiride 2 mg twice a day, diabetic diet, sliding scale insulin
#Osteoarthritis
Tylenol, oxycodone as needed
DVT prophylaxis�eliquis
DNR confirmed by patient upon admission
Total time spent to see the patient on the floor, examine the patient, review data and lab results, discuss treatment plan with patient, nursing staff around 35 minutes.
Physical Exam
General: No acute distress
HEENT: Normocephalic, Atraumatic, EOMI, MMM
Respiratory: Clear to Auscultation bilaterally
Cardiac: Normal S1/S2, irregularly irregular
GI: Soft, Nontender, Nondistended, Normal Bowel Sounds
Extremities: No Clubbing, Cyanosis
Neuro: Nonfocal/Grossly Intact
Psych: Calm, Cooperative
Derm: No Visible lesions
Anticipated Discharge: 24 - 48 hours
Subjective/Interval History
-
Date of Service: April 20, 2024
Patient reports lightheadedness and dizziness resolved after temporary pacing wire. No chest pain, no shortness of breath. His left shoulder pain is controlled with the oxycodone. No fever, no vomiting.
Objective Data
-
Labs:
Laboratory Results
04/20/24
10:55
WBC 9.2
Hgb 13.1
Hct 36.4 L
Plt Count 155
Sodium 134 L
Potassium 4.1
Chloride 101
Carbon Dioxide 24
BUN 19
Creatinine 1.5 H
Glucose 223 H
Calcium 8.9
Total Bilirubin 1.4 H
AST 27
ALT 16
Alkaline Phosphatase 83
Vital Signs:
Vital Signs
Temp Pulse Resp BP Pulse Ox
98.5 F 95 17 142/95 97
04/20/24 10:45 04/20/24 15:09 04/20/24 15:00 04/20/24 15:09 04/20/24 15:00
[2024-04-21] MEDS: NOVOLOG FLEXPEN-MODERATE RESISTANCE SC ×2 (08:47→16:11)
[2024-04-21] MEDS: AMARYL 2 MG PO ×2 (08:48→19:55)
[2024-04-21] MEDS: OCUVITE SOFTGEL 1 CAP PO ×2 (08:48→19:55)
[2024-04-21] MEDS: ASPIR LOW (ENTERIC COATED) 81 MG PO (08:49)
[2024-04-21] MEDS: XANAX 0.25 MG PO ×3 (08:49→22:42)
[2024-04-21] MEDS: ZESTRIL 20 MG PO (08:49)
[2024-04-21] MEDS: PROTONIX 40 MG PO (08:50)
--- NOTE | 2024-04-21 09:22 | PN.CDI ---
CDI
- -
CDI:
Physician Documentation Request
Admit Date: 04/20/24 15:[address] Surgery,
Please review the following and provide your response in the progress notes.
Clinical Indicators:
- 04/17 Op Report 'Acute on chronic congestive heart failure' without specificity
- 04/18 Echo EF 60-65%
- 04/18 DC Summary LVEDP 28 mmHg
Please provide further specificity regarding the most likely type of CHF you are evaluating, treating or monitoring.
Acute on chronic systolic CHF
Acute on chronic diastolic CHF
Acute on chronic combined systolic and diastolic CHF
Other
Use of terms such as suspected, likely, concern for, or probable (associated with a specific diagnosis that is being evaluated, monitored, or treated as if it exists) are acceptable and can be coded in the inpatient setting, when documented at the
time of discharge.
Thank you,
Geraldine Asif RN
CDI Specialist
Please use your independent medical judgment in providing your response.
--- NOTE | 2024-04-21 12:00 | PTCARENOTE ---
sent in bed to slab depiler operator for PPM placement.
--- NOTE | 2024-04-21 14:44 | ITS.CL.PACE ---
Addendum entered and electronically signed by Carrillo Vargas MD 04/21/24 18:15:
-
The temporary transvenous pacemaker wire was removed under fluoroscopic control at the conclusion of the pacemaker implant. The venous introducer was removed and hemostasis achieved with manual pressure.
Original Note:
[facility] - Pacemaker Implant
Pacemaker Implant
Procedure Report:
Date of Procedure: April 21, 2024.
Procedure: Pacemaker Implantation. Dual chamber conduction system pacemaker placed.
Indication: The pacemaker is for the treatment of nonreversible symptomatic bradycardia due to paroxysmal third degree atrioventricular block.
Performing physician: Carrillo Vargas MD, [facility].
Implants:
Pulse Generator: [employer]; Model# [id number]; Serial# [id number].
RA Lead: Medtronic; Model# 5076-52cm; Serial# [id number].
RV Lead: Medtronic; Model# 3830-69cm; Serial# [id number].
Technique: A time out was performed. The procedure site was identified. The patient was anesthetized by the anesthesia service. Preoperative cefazolin was administered. The patient was prepped and draped in the usual fashion. Local anesthetic was
applied to the left prepectoral subcutaneous tissue. A 3 inch incision was made along the left deltopectoral groove. Dissection was carried to the fascia. The left cephalic vein was easily isolated and proximal and distal control with suture. Using
a micropuncture needle to access the cephalic vein under direct visualization a wire was advanced into the central circulation. A 7 Fr introducer was placed to allow a second 0.35 J wires to be advanced. The leads were placed through 7 Fr hemostatic
peel-away introducers. The RV lead was placed using utilizing the [employer] His delivery catheter ([id number]) that was advanced to the left bundle area as confirmed by fluoroscopy in the [place] and CAAL projections. The lead tip was advanced. PVC
morphology was reviewed. When a satisfactory location was identified the lead was screwed into position with serial turns. After each series of turns unipolar sensed morphology and impedance, and paced morphology of V1 was analyzed. The lead was
further advanced until satisfactory morphology and electrical characteristics were confirmed. The second attempted site was the final site. The ventricular lead was secured to the pectoralis muscle and fascia with two 0-silk sutures. The atrial lead
was then placed in the right atrial appendage. 8 volt pacing did not capture the diaphragm from either lead. The atrial lead was secured to the pectoralis muscle and fascia with two 0-silk sutures. A subcutaneous pocket was created with Bovie
cautery. Hemostasis was excellent. The leads were appropriately attached to the device. The pocket was irrigated with antibiotic solution. The device and leads were placed in the pocket. The incision was closed in three layers with absorbable
suture. Steri-strips and a silver impregnated dressing were placed. Estimated blood loss was 5 ml. There were no complications. Fluoroscopy: time 3.9 minutes and DAP 2.34 GyCM2. The device was then interrogated after skin closure.
Lead Analysis:
RA lead: AFib: 1.6 mV; Impedance: 640 ohms.
RV lead: R: 21 mV; Threshold: 0.75 V @ 0.4 ms; Impedance: 1064 ohms.
Paced QRS characteristics: V1 has RS morphology and the QRS measures 115 ms in duration, stim to peak V6 is 55 ms, and peak V1 to peak V6 is 53 ms.
Final Programming: MVP (AAIR to DDDR) 60-130 bpm.
Conclusion: Uncomplicated dual chamber conduction system Medtronic pacemaker implant. The pacing system is MRI conditional.
Recommendation: Routine post pacemaker care.
cc: Linwood Johnson MD, Tulio Victor MD.
[2024-04-21 15:35] LABS: Glucose - Point of Care 166 mg/dl (70-99)
--- NOTE | 2024-04-21 16:04 | CM ---
Reviewed chart. Met with and Mrs. Celis to review discharge plans. He states prior to admission he resides with his spouse in a three story home without any steps to enter. He states he has a first floor set-up. He states prior to admission he
was independent with ambulation and adls. He states he does not have any DME in the home. He states he has a prescription plan . Medical work-up in progress. The discharge plan is to return home with his spouse when medically stable.
[2024-04-21] MEDS: NOVOLOG FLEXPEN-MODERATE RESISTANCE 1 UNITS SC (16:27)
--- NOTE | 2024-04-21 16:52 | PTCARENOTE ---
Received pt post PPM and temporary wire removal. Left anterior wall and right groin dressings clean and intact. EKG obtained. Cardizem drip to be started due to uncontrolled a fib. Pt asymptomatic. Will monitor.
[2024-04-21] MEDS: CARDIZEM 15 MG IV (17:02)
[2024-04-21] MEDS: CARDIZEM 125 IV (17:04)
[2024-04-21] MEDS: ANCEF 5 IV (18:33)
[2024-04-21] MEDS: ULTRAM 25 MG PO (20:09)
[2024-04-21 22:27] LABS: Glucose - Point of Care 215 mg/dl (70-99)
[2024-04-21] MEDS: LIPITOR 10 MG PO (22:42)
--- NOTE | 2024-04-21 23:32 | PTCARENOTE ---
Pt received start of shift, HR Afib w/ BBB and occasional V-pacing. Cardizem infusing at 5mg/hr. R groin site CDI, soft, no hematoma, slight ecchymosis noted around area. L arm in immobilizer. L chest dressing CDI. Pt denies any CP, SOB, or
lightheadedness/dizziness. Informed to notify RN if any changes, call del valle within reach.
Pt c/o 3/10 pain in L shoulder (chronic). PRN tramadol administered - see DEC. Ineffective, new pain rating 6/10 at L shoulder and incision site, PRN todd administered - see DEC.
[2024-04-22] VITALS (10 sets, daily range): BP systolic 126–176; BP diastolic 57–79; BMI 29.2
[2024-04-22] MEDS: ANCEF 5 IV (02:28)
[2024-04-22] MEDS: ROXICODONE 5 MG PO ×2 (02:28→20:45)
[2024-04-22 03:04] LABS: Hematocrit 34.4 % (39.0-52.0); Hemoglobin 12.7 g/dL (13.0-18.0); Mean Corp Hgb Conc. 36.9 g/dL (33.0-37.0); Mean Corpuscular Hgb 31.3 pg (27.0-31.0); Mean Corpuscular Volume 84.7 fL (80.0-94.0); Mean Platelet Volume 9.6 fL (7.4-10.4); Platelet Count 171 10^3/uL (130-400); Red Blood Cell Count 4.06 10^6/uL (4.70-6.10); Red Cell Dist. Width 12.9 % (11.5-14.5); White Blood Cell Count 8.8 10^3/uL (4.8-10.8)
[2024-04-22 03:23] LABS: Blood Urea Nitrogen 20 mg/dl (9-20); Calcium 9.1 mg/dl (8.4-10.2); Carbon Dioxide 19 mmol/L (22-30); Chloride 101 mmol/L (98-107); Estimated Creatinine Clearance 37 ml/min; Glucose 177 mg/dl (70-99); Magnesium 2.1 mg/dl (1.6-2.3); Phosphorus 3.8 mg/dl (2.5-4.5); Potassium 4.5 mmol/L (3.5-5.1); Sodium 131 mmol/L (135-145); eGFR 53.84
--- NOTE | 2024-04-22 06:15 | W.PN.HOSP.TC ---
Today's Communication/Plan
-
rate control as per cardio
glycemic control
pain control
blood pressure control
Assessment / Plan
Assessment / Plan
HPI: 83-year-old male with a past medical history of severe aortic stenosis status post TAVR on 04/17/2024, CAD status post CABG 1993, paroxysmal atrial fibrillation on Eliquis, hypertension, hyperlipidemia, type 2 diabetes, and osteoarthritis
presents with worsening left shoulder pain and palpitations. Patient had his TAVR on 04/17/2024, was discharged on 04/18/2024. He reports starting to have left shoulder pain on the day of discharge, it has since worsened. Patient received aspirin
325 mg, and sublingual nitroglycerin en route with no improvement. Associated symptoms include palpitations. He was found to have rapid atrial fibrillation, and started on a Cardizem drip. He denies shortness of breath, fever, chills. No
lightheadedness, no dizziness. No black or bloody stools. No dysuria.
#Sick sinus syndrome with A-fib with rapid ventricular response alternating with pauses
Appreciate cardiology input
treated w temp pacing wire 04/20 s/p ppm 04/21
S/p IV cardizem drip, PO cardizem and metoprolol started as per Cardio
Cont Eliquis
#Elevated troponin, Chest pain free
Cardio on board
Suspect non-[place] troponin related, trend to peak
#Severe s/p recent TAVR 04/17/24
Monitor
#Coronary artery disease status post CABG and PCI
Continue aspirin, statin, Eliquis
#Benign essential hypertension
Hold home amlodipine to give room for more rate controlling meds
Continue lisinopril 20 mg daily, hydralazine 10 mg 3 times daily as needed SBP greater than 170
Stage III CKD
Trend creatinine, no NSAIDs/nephrotoxic drug
Stable Cr
#Type 2 diabetes
Continue glimepiride 2 mg twice a day, diabetic diet, sliding scale insulin
#Osteoarthritis
Tylenol, oxycodone as needed
DVT prophylaxis�Eliquis
DNR confirmed by patient upon admission
discussed with patient at bedside and patient's Debo over phone
Total time spent to see the patient on the floor, examine the patient, review data and lab results, discuss treatment plan with patient, nursing staff around 50 minutes.
Physical Exam
General: No acute distress
HEENT: Normocephalic, Atraumatic, EOMI, MMM
Respiratory: Clear to Auscultation bilaterally
Cardiac: Normal S1/S2, irregularly irregular
GI: Soft, Nontender, Nondistended, Normal Bowel Sounds
Extremities: No Clubbing, Cyanosis
Neuro: Nonfocal/Grossly Intact
Psych: Calm, Cooperative
Derm: No Visible lesions
Anticipated Discharge: Today
Subjective/Interval History
-
Date of Service: April 22, 2024
Seen and examined at bedside in no acute distress sitting up comfortably in chair. Reports overall feeling well. Denies chest pain palpitations sob. Reports ambulating without issues.
Objective Data
-
Labs:
Laboratory Results
04/22/24
02:14
WBC 8.8
Hgb 12.7 L
Hct 34.4 L
Plt Count 171
Sodium 131 L
Potassium 4.5
Chloride 101
Carbon Dioxide 19 L
BUN 20
Creatinine 1.3
Glucose 177 H
Calcium 9.1
Vital Signs:
Vital Signs
Temp Pulse Resp BP Pulse Ox
98.1 F 96 20 153/79 93
04/22/24 02:03 04/22/24 02:03 04/22/24 02:03 04/22/24 02:03 04/22/24 02:03
I&O
04/20/24 04/21/24 04/22/24
06:59 06:59 06:59
Intake Total 110 / 110 540 / 540
Output Total 850 / 850 300 / 300
Balance -740 / -740 240 / 240
[2024-04-22 07:50] LABS: Glucose - Point of Care 157 mg/dl (70-99)
[2024-04-22] MEDS: ZESTRIL 20 MG PO (09:09)
[2024-04-22] MEDS: OCUVITE SOFTGEL 1 CAP PO ×2 (09:09→19:21)
[2024-04-22] MEDS: ASPIR LOW (ENTERIC COATED) 81 MG PO (09:09)
[2024-04-22] MEDS: PROTONIX 40 MG PO (09:09)
[2024-04-22] MEDS: ULTRAM 25 MG PO (09:10)
[2024-04-22] MEDS: AMARYL 2 MG PO ×2 (09:11→19:21)
[2024-04-22] MEDS: XANAX 0.25 MG PO ×3 (09:11→23:28)
[2024-04-22] MEDS: NOVOLOG FLEXPEN-MODERATE RESISTANCE 1 UNITS SC (09:11)
--- NOTE | 2024-04-22 10:06 | W.PN.CD ---
Today's Communication / Plan
-
AV block
- S/p pacer yesterday
- Site/CXR/tele good for pacer
AFib with RVR
- Move to PO meds
- Eliquis to start tomorrow
Recent TAVR
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
Subjective:
Pacer site pain is controlled.
Impression / Plan
-
Move to PO dilt and PO metoprolol
Eliquis to start tomorrow
Physical Exam
Vital Signs/Labs
Vital Signs
Temp Pulse Resp BP Pulse Ox
97.5 F 100 18 137/58 94
04/22/24 07:44 04/22/24 09:09 04/22/24 07:44 04/22/24 09:09 04/22/24 07:44
04/21/24 04/22/24 04/23/24
06:59 06:59 06:59
Actual Weight 81.3 kg 81.9 kg
04/22/24 02:14
04/22/24 02:14
Magnesium 2.1 mg/dl (1.6-2.3) 04/22/24 02:14
LAB Results
04/20/24 04/20/24 04/21/24
10:55 17:16 02:19
Troponin I 0.558 H* 1.080 H* D 1.190 H*
Physical Exam
Constitutional: No acute distress
EENT: Anicteric
Cardiovascular: Rub absent
Respiratory: Respiratory effort normal and Lungs clear to auscul.
GI: Soft and Distention absent
Neuro/Psych: Alert
Other: Cardiac Device Site (no hematoma, dressing dry)
Data Reviewed
-
Date of Service: April 22, 2024
[2024-04-22] MEDS: LOPRESSOR 25 MG PO ×2 (11:16→19:21)
[2024-04-22] MEDS: CARDIZEM 60 MG PO ×3 (13:00→22:57)
[2024-04-22 13:07] LABS: Glucose - Point of Care 243 mg/dl (70-99)
[2024-04-22] MEDS: NOVOLOG FLEXPEN-MODERATE RESISTANCE 3 UNITS SC ×2 (14:06→18:14)
[2024-04-22 17:55] LABS: Glucose - Point of Care 208 mg/dl (70-99)
[2024-04-22 21:33] LABS: Glucose - Point of Care 204 mg/dl (70-99)
[2024-04-22] MEDS: LIPITOR 10 MG PO (22:57)
[2024-04-22] MEDS: XOPENEX 1.25 MG INHALANT SOLUTION INH (23:04)
[2024-04-23] VITALS (9 sets, daily range): BP systolic 125–145; BP diastolic 38–65; PULSE 64–67; O2SAT 95; BMI 29.4
--- NOTE | 2024-04-23 01:05 | PTCARENOTE ---
Pt received start of shift, HR afib w/ BBB and occasional V-pacing. R groin site CDI, soft, no hematoma. L upper chest aquacel dressing scant drainage, intact. Pt denies any CP, SOB, or lightheadedness/dizziness. Informed to notify RN if any
changes, call del valle within reach.
Pt c/o SOB, 88-90% RA. 2L NC placed on pt: 89-92%. New expiratory wheeze noted. CVPA Ed Danish notified, xopenex treatment ordered. After treatment, pt states SOB is almost completely gone and head 'feels clear now'. 2L NC and pulsox left on
overnight.
[2024-04-23 05:38] LABS: Hematocrit 34.6 % (39.0-52.0); Hemoglobin 12.6 g/dL (13.0-18.0); Mean Corp Hgb Conc. 36.4 g/dL (33.0-37.0); Mean Platelet Volume 9.6 fL (7.4-10.4); Platelet Count 187 10^3/uL (130-400); Red Blood Cell Count 4.07 10^6/uL (4.70-6.10); Red Cell Dist. Width 12.7 % (11.5-14.5); White Blood Cell Count 8.6 10^3/uL (4.8-10.8)
[2024-04-23 06:04] LABS: Blood Urea Nitrogen 21 mg/dl (9-20); Calcium 9.1 mg/dl (8.4-10.2); Carbon Dioxide 22 mmol/L (22-30); Chloride 98 mmol/L (98-107); Estimated Creatinine Clearance 35 ml/min; Glucose 169 mg/dl (70-99); Magnesium 1.9 mg/dl (1.6-2.3); Phosphorus 3.4 mg/dl (2.5-4.5); Potassium 4.7 mmol/L (3.5-5.1); Sodium 129 mmol/L (135-145); eGFR 49.25
[2024-04-23 06:07] LABS: Troponin I 0.394 ng/ml
[2024-04-23] MEDS: NOVOLOG FLEXPEN-MODERATE RESISTANCE 1 UNITS SC (07:17)
--- NOTE | 2024-04-23 07:27 | W.PN.HOSP.TC ---
Addendum entered and electronically signed by Merari Finley MD 04/24/24 08:01:
Mild Hyponatremia
-fluid restriction started
Original Note:
Today's Communication/Plan
-
Blood pressure Control
Glycemic control
rate control as per cardio
Check nocturnal oxygenation study
Likely discharge tomorrow w/ or w/o bedtime oxygen depending on results of above study
Assessment / Plan
Assessment / Plan
HPI: 83-year-old male with a past medical history of severe aortic stenosis status post TAVR on 04/17/2024, CAD status post CABG 1993, paroxysmal atrial fibrillation on Eliquis, hypertension, hyperlipidemia, type 2 diabetes, and osteoarthritis
presents with worsening left shoulder pain and palpitations. Patient had his TAVR on 04/17/2024, was discharged on 04/18/2024. He reports starting to have left shoulder pain on the day of discharge, it has since worsened. Patient received aspirin
325 mg, and sublingual nitroglycerin en route with no improvement. Associated symptoms include palpitations. He was found to have rapid atrial fibrillation, and started on a Cardizem drip. He denies shortness of breath, fever, chills. No
lightheadedness, no dizziness. No black or bloody stools. No dysuria.
#Sick sinus syndrome with A-fib with rapid ventricular response alternating with pauses
Appreciate cardiology input
treated w temp pacing wire 04/20 s/p ppm 04/21
S/p IV cardizem drip, cont PO cardizem and metoprolol as per Cardio
Cont Eliquis
#Elevated troponin, Chest pain free
Cardio on board
Suspect non-[place] troponin related, trend to peak
#Severe s/p recent TAVR 04/17/24
Monitor
#Coronary artery disease status post CABG and PCI
Continue aspirin, statin, Eliquis
#Benign essential hypertension
Home amlodipine discontinued as per cardio
Continue lisinopril 20 mg daily, hydralazine 10 mg 3 times daily as needed SBP greater than 170
Stage III CKD
Trend creatinine, no NSAIDs/nephrotoxic drug
Stable Cr
#Type 2 diabetes
Continue glimepiride 2 mg twice a day, diabetic diet, sliding scale insulin
#Osteoarthritis
Tylenol, oxycodone as needed
#Desaturation overnight
weaned off oxygen supplementation
Home oxygen assessment PT/OT appreciated no needs
check nocturnal oxygenation study
DVT prophylaxis�Eliquis
DNR confirmed by patient upon admission
discussed with patient at bedside and patient's Debo over phone
Total time spent to see the patient on the floor, examine the patient, review data and lab results, discuss treatment plan with patient, nursing staff around 50 minutes.
Physical Exam
General: No acute distress
HEENT: Normocephalic, Atraumatic, EOMI, MMM
Respiratory: Clear to Auscultation bilaterally
Cardiac: Normal S1/S2, irregularly irregular
GI: Soft, Nontender, Nondistended, Normal Bowel Sounds
Extremities: No Clubbing, Cyanosis
Neuro: Nonfocal/Grossly Intact
Psych: Calm, Cooperative
Derm: No Visible lesions
Anticipated Discharge: Within 24 hours
Subjective/Interval History
-
Date of Service: April 23, 2024
Overnight events reviewed notable for desaturation sob requiring nasal cannula supplementation with associate new expiratory wheeze resolved with once nebulizer treatment as report. Otherwise patient in no acute distress on evaluation in morning.
Reports overall feeling well. Weaned off oxygen supplementation.
Objective Data
-
Labs:
Laboratory Results
04/23/24
05:16
WBC 8.6
Hgb 12.6 L
Hct 34.6 L
Plt Count 187
Sodium 129 L
Potassium 4.7
Chloride 98
Carbon Dioxide 22
BUN 21 H
Creatinine 1.4 H
Glucose 169 H
Calcium 9.1
Vital Signs:
Vital Signs
Temp Pulse Resp BP Pulse Ox
98 F 67 22 145/56 94
04/23/24 04:59 04/23/24 05:00 04/23/24 04:59 04/23/24 04:59 04/23/24 04:59
I&O
04/22/24 04/23/24 04/24/24
06:59 06:59 06:59
Intake Total 540 / 540 905 / 905
Output Total 300 / 300
Balance 240 / 240 905 / 905
[2024-04-23 07:30] LABS: Glucose - Point of Care 174 mg/dl (70-99)
--- NOTE | 2024-04-23 08:05 | W.PN.CD ---
Today's Communication / Plan
-
OK for discharge from cardiac perspective
Home off amlodipine and on NEW Cardizem CD 240 a day and Toprol XL 50 mg daily (generic fine)
He is starting back Eliquis 5 bid starting this AM
F/u in our office arranged
If still in AFib in a few weeks Dr. Victor may pursue cardioversion
Impression / Plan
-
AV block
- S/p pacer 04/21/2024
- Site/CXR/tele good for pacer
AFib with now controlled V rate on dilt/metoprolol
- Move to PO meds
- Eliquis to start tomorrow
Recent TAVR
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
HTN
- Off amlodipine in favor of metoprolol and dilt
Subjective:
Pacer site pain is controlled.
Physical Exam
Vital Signs/Labs
Vital Signs
Temp Pulse Resp BP Pulse Ox
97.9 F 67 20 145/56 97
04/23/24 07:26 04/23/24 05:00 04/23/24 07:26 04/23/24 04:59 04/23/24 07:26
04/22/24 04/23/24 04/24/24
06:59 06:59 06:59
Actual Weight 81.9 kg 82.5 kg
04/23/24 05:16
04/23/24 05:16
Magnesium 1.9 mg/dl (1.6-2.3) 04/23/24 05:16
LAB Results
04/20/24 04/20/24 04/21/24
10:55 17:16 02:19
Troponin I 0.558 H* 1.080 H* D 1.190 H*
04/23/24
05:16
Troponin I 0.394 H*
Physical Exam
Constitutional: No acute distress
EENT: Anicteric
Cardiovascular: Rhythm & rate is regular, Systolic murmur present and Rub absent
Respiratory: Respiratory effort normal and Lungs clear to auscul.
GI: Soft and Distention absent
Other: Cardiac Device Site (no hematoma or bleeding)
Data Reviewed
-
Date of Service: April 23, 2024
[2024-04-23] MEDS: ZESTRIL 20 MG PO (09:13)
[2024-04-23] MEDS: ASPIR LOW (ENTERIC COATED) 81 MG PO (09:13)
[2024-04-23] MEDS: ELIQUIS 5 MG PO ×2 (09:14→19:17)
[2024-04-23] MEDS: AMARYL 2 MG PO ×2 (09:14→19:17)
[2024-04-23] MEDS: PROTONIX 40 MG PO (09:14)
[2024-04-23] MEDS: XANAX 0.25 MG PO ×3 (09:14→21:39)
[2024-04-23] MEDS: TOPROL XL 50 MG PO (09:14)
[2024-04-23] MEDS: OCUVITE SOFTGEL 1 CAP PO ×2 (09:32→19:17)
[2024-04-23 09:51] LABS: Glucose - Point of Care 193 mg/dl (70-99)
[2024-04-23] MEDS: LOPRESSOR PO (09:52)
[2024-04-23] MEDS: CARDIZEM PO (09:52)
--- NOTE | 2024-04-23 10:33 | PN.CDI ---
CDI
- -
CDI:
Physician Documentation Request
Admit Date: 04/20/24 15:15
Dear Doctor Malia,
Patient admitted with sick sinus syndrome.
Laboratory Tests
04/20/24 04/21/24 04/22/24 04/23/24
10:55 02:19 02:14 05:16
Sodium 134 L 131 L 131 L 129 L
Based on the above, could you clarify in the progress notes, the appropriate diagnosis, if significant, that supports the above abnormalities and additional evaluation, monitoring and/or treatment rendered:
Hyponatremia
Abnormal lab values insignificant
Other
Use of terms such as suspected, likely, concern for, or probable (associated with a specific diagnosis that is being evaluated, monitored, or treated as if it exists) are acceptable and can be coded in the inpatient setting, when documented at the
time of discharge.
Thank you,
Alisia Thomas RN, BSN
CDI Specialist
Available via [place] text
Please use your independent medical judgment in providing your response.
[2024-04-23] MEDS: CARDIZEM CD 240 MG PO (12:46)
--- NOTE | 2024-04-23 13:37 | PTOTSP ---
PATIENT ABLE TO MOBILIZE INDEPENDENTLY REQUIRING NO FURTHER ACUTE CARE SKILLED P.T. AT THIS TIME. WILL DISCHARGE FROM P.T. SERVICES.
[2024-04-23 14:09] LABS: Glucose - Point of Care 228 mg/dl (70-99)
[2024-04-23] MEDS: NOVOLOG FLEXPEN-MODERATE RESISTANCE 3 UNITS SC (14:09)
--- NOTE | 2024-04-23 14:09 | PTOTSP ---
pt currently demonstrates ability to complete simple ADLs, functional transfers, ambulation with supervision to no assistance. pt aware of pacemaker precautions, impact on ADLs. no acute OT needs identified at this time, will sign off.
--- NOTE | 2024-04-23 14:32 | CM ---
Reviewed chart. Met with and Mrs. Celis to review discharge plans. He states he is feeling better. He states he maybe able to go home soon Prior to admission he resides with his spouse in a three story home without any steps to enter. He has
a first floor set-up. He states he does not have any DME in the home. We reviewed [facility] at home. At this time he is declining [facility]. Medical work-up in progress. The discharge plan is to return home with his spouse when medically
stable.
[2024-04-23 17:19] LABS: Glucose - Point of Care 266 mg/dl (70-99)
[2024-04-23] MEDS: NOVOLOG FLEXPEN-MODERATE RESISTANCE 5 UNITS SC (19:00)
[2024-04-23] MEDS: SENOKOT 8.59999999999999964 MG PO (19:40)
--- NOTE | 2024-04-23 20:53 | PTCARENOTE ---
Pt received at start of shift, HR Afib w/ BBB and occasional V-pacing. Left Upper chest aquacel dressing CDI. R groin CDi, soft, no hematoma. RA 94%. Pt stated having a hard time having a BM, requested stool softeners. TT MASTER COSMETOLOGIST luis Mack now and
colace prn ordered. Pt denies any pain or SOB, informed to notify RN if any changes, call del valle within reach.
[2024-04-23] MEDS: COLACE 100 MG PO (21:39)
[2024-04-23] MEDS: DESYREL 12.5 MG PO (21:39)
[2024-04-23] MEDS: LIPITOR 10 MG PO (21:39)
[2024-04-23 22:07] LABS: Glucose - Point of Care 231 mg/dl (70-99)
[2024-04-24] MEDS: ULTRAM 25 MG PO (04:07)
[2024-04-24 04:10] VITALS: BP 137/57
[2024-04-24 06:00] VITALS: BMI 29.0
[2024-04-24 07:17] VITALS: BP 132/62
--- NOTE | 2024-04-24 07:20 | W.PN.HOSP.TC ---
Addendum entered and electronically signed by Merari Finley MD 04/26/24 07:40:
Non-ischemic myocardial injury
Original Note:
Today's Communication/Plan
-
discharge
Assessment / Plan
Assessment / Plan
HPI: 83-year-old male with a past medical history of severe aortic stenosis status post TAVR on 04/17/2024, CAD status post CABG 1993, paroxysmal atrial fibrillation on Eliquis, hypertension, hyperlipidemia, type 2 diabetes, and osteoarthritis
presents with worsening left shoulder pain and palpitations. Patient had his TAVR on 04/17/2024, was discharged on 04/18/2024. He reports starting to have left shoulder pain on the day of discharge, it has since worsened. Patient received aspirin
325 mg, and sublingual nitroglycerin en route with no improvement. Associated symptoms include palpitations. He was found to have rapid atrial fibrillation, and started on a Cardizem drip. He denies shortness of breath, fever, chills. No
lightheadedness, no dizziness. No black or bloody stools. No dysuria.
#Sick sinus syndrome with A-fib with rapid ventricular response alternating with pauses
Appreciate cardiology input
treated w temp pacing wire 04/20 s/p ppm 04/21
S/p IV cardizem drip, cont PO cardizem CD 240 daily and metoprolol XL 50 daily as per Cardio
Cont Eliquis
#Elevated troponin, Chest pain free
likely non-PA troponin related, trended to peak 1.190 since trended down
chest pain free
#Severe s/p recent TAVR 04/17/24
Monitor
#Coronary artery disease status post CABG and PCI
Continue aspirin, statin, Eliquis
#Benign essential hypertension
Home amlodipine discontinued as per cardio
Continue lisinopril 20 mg daily
diltiazem metoprolol as per cardio above
Stage III CKD
Trend creatinine, no NSAIDs/nephrotoxic drug
Stable Cr
#Type 2 diabetes
Continue glimepiride 2 mg twice a day, diabetic diet, sliding scale insulin
#Osteoarthritis
Tylenol, oxycodone as needed
#Desaturation overnight
weaned off oxygen supplementation
Home oxygen assessment PT/OT appreciated no needs
nocturnal oxygenation study appreciated no need for oxygen supplementation
Mild Hyponatremia
-fluid restriction
-outpatient follow up with primary
DVT prophylaxis�Eliquis
DNR confirmed by patient upon admission
Medically stable for discharge home with outpatient follow up recommendations.
Total Time Preparing Discharge __50 minutes including examination of the patient, summary of the hospital stay, instructions for continuing care to all relevant caregivers; and preparation of discharge records, prescriptions, and referral
forms if necessary.
Physical Exam
General: No acute distress
HEENT: Normocephalic, Atraumatic, EOMI, MMM
Respiratory: Clear to Auscultation bilaterally
Cardiac: Normal S1/S2, irregularly irregular
GI: Soft, Nontender, Nondistended, Normal Bowel Sounds
Extremities: No Clubbing, Cyanosis
Neuro: Nonfocal/Grossly Intact
Psych: Calm, Cooperative
Derm: No Visible lesions
Anticipated Discharge: Today
Subjective/Interval History
-
Date of Service: April 24, 2024
Seen and examined at bedside in no acute distress sitting up comfortably in bed. Reports overall feeling well. Stable respiratory status on room air. Constipation noted since resolved with laxative. Eager to go home. Denies new acute issues at
this time.
Objective Data
-
Labs:
Laboratory Results
04/24/24
04:22
Sodium Pending
Potassium Pending
Chloride Pending
Carbon Dioxide Pending
BUN Pending
Creatinine Pending
Glucose Pending
Calcium Pending
Vital Signs:
Vital Signs
Temp Pulse Resp BP Pulse Ox
97.5 F 80 18 137/57 94
04/24/24 07:14 04/24/24 07:00 04/24/24 04:10 04/24/24 04:10 04/24/24 07:14
I&O
04/23/24 04/24/24 04/25/24
06:59 06:59 06:59
Intake Total 905 / 905 480 / 480
Balance 905 / 905 480 / 480
[2024-04-24 07:22] LABS: Glucose - Point of Care 146 mg/dl (70-99)
[2024-04-24] MEDS: NOVOLOG FLEXPEN-MODERATE RESISTANCE SC (07:23)
[2024-04-24] MEDS: XANAX 0.25 MG PO (08:02)
[2024-04-24] MEDS: PROTONIX 40 MG PO (08:02)
[2024-04-24] MEDS: TOPROL XL 50 MG PO (08:02)
[2024-04-24] MEDS: AMARYL 2 MG PO (08:02)
[2024-04-24] MEDS: ELIQUIS 5 MG PO (08:02)
[2024-04-24] MEDS: OCUVITE SOFTGEL 1 CAP PO (08:02)
[2024-04-24] MEDS: CARDIZEM CD 240 MG PO (08:02)
[2024-04-24] MEDS: ASPIR LOW (ENTERIC COATED) 81 MG PO (08:02)
[2024-04-24] MEDS: ZESTRIL 20 MG PO (08:03)
--- NOTE | 2024-04-24 10:00 | PTCARENOTE ---
Assumed care of patient at 0645. Assessment completed and documented in shift assessment.
Patient is pleasant, AAOX4. L CW Lesia CDI after permanent pacemaker. Currently V-Paced on the monitor. Eager for discharge later this afternoon.
--- NOTE | 2024-04-24 11:07 | PN.CDI ---
CDI
- -
CDI:
Physician Documentation Request
Admit Date: 04/20/24 15:15
Dear Doctor Malia,
Patient admitted with sick sinus syndrome.
04/24 Hospitalist PN: 'Elevated troponin, Chest pain free, likely non-NC troponin related, trended to peak 1.190 since trended down, chest pain free'
Please clarify the following regarding the documented troponin elevation:
Non-ischemic myocardial injury
Abnormal lab value insignificant
Other
Use of terms such as suspected, likely, concern for, or probable (associated with a specific diagnosis that is being evaluated, monitored, or treated as if it exists) are acceptable and can be coded in the inpatient setting, when documented at the
time of discharge.
Thank you,
Alisia Thomas RN, BSN
CDI Specialist
Available via [place] text
Please use your independent medical judgment in providing your response.
--- NOTE | 2024-04-24 11:17 | W.DCSUMMARY ---
Discharge Summary
Discharge Data
Date of Admission: 04/20/24
Date of Discharge: 04/24/24
-
Pending Results: No
Discharge Plan
-
Patient Disposition: Home (Routine Discharge)
Discharge Diagnosis/Procedures: Sick Sinus Syndrome AV Block status post Pacemaker implant 04/21/24
atrial fibrillation
Severe Aortic Stenosis status post recent TAVR
Hypertension
Coronary Artery Disease history CABG
Chronic Kidney Disease stage III
Diabetes
Osteoarthritis
Condition: Fair
Diet: Diabetic, Carb Controlled and Restrict fluids to 64 oz
Activity: As tolerated
Driving Restrictions: Not until seen by your Dr
Bathing Restrictions: None
Blood Work: Please repeat CBC and BMP with primary care provider or Cardiology in 1 week of discharge.
Others Tests: Repeat CXR with primary care provider in 1 month of discharge.
Activity Restrictions/Additional Instructions:
Please follow up with your primary care provider in 1 week of discharge and keep your appointment with cardiology.
Amlodipine has been discontinued in favor of Metoprolol and Cardizem for blood pressure control and better rate control atrial fibrillation.
Tramadol has been prescribed as needed for pain, 5 day supply.
Please take medications as prescribed/recommended and follow up with primary care provider and/or other healthcare provider involved in your care for refills and/or further adjustment to your medication regimen as necessary.
Stand Alone Forms: DC Inst - Implanted Device
Referrals:
Linwood Johnson MD [Family Provider] - in one week
Jeaneth Garcia CRNP [Specified Professional Personl] - 04/30/24 3:20 pm (Post device incision check appointment)
Prescriptions:
New
metoprolol succinate 50 mg Tablet Extended Release 24 Hr
50 mg PO DAILY 30 Days Qty: 30 0RF
diltiazem HCl 240 mg Capsule,Extended Release 24hr
240 mg PO DAILY 30 Days Qty: 30 0RF
tramadol 50 mg Tablet
25 mg PO BIDPRN PRN (Reason: moderate severe pain) Qty: 10 0RF
Continued
alprazolam 0.25 MG tablet
0.25 mg PO TID
Patient Comments:
03/01/2024: last filled 02/07/24, 270 tabs for 90 days from [facility]
simvastatin 20 MG tablet
20 mg PO HS
pantoprazole 40 MG tablet,delayed release (DR/EC)
40 mg PO DAILY Qty: 90 3RF
aspirin 81 MG tablet,delayed release (DR/EC)
81 mg PO DAILY Qty: 1 0RF
glimepiride 2 mg Tablet
2 mg PO BID
Hold Instructions: Resume on 03/11/24. Discuss with your primary care physician before resuming this medication.
PreserVision AREDS 2,148 mcg-113 mg-45 mg-17.4mg Tablet
1 tab PO BID
nitroglycerin 0.4 MG tablet, sublingual
0.4 mg sublingual [id number] PRN (Reason: chest pain)
lisinopril 20 mg Tablet
20 mg PO DAILY Qty: 30 1RF
hydralazine 10 mg tablet
10 mg PO TIDPRN PRN (Reason: systolic blood pressure greater than 170 mmHg)
Eliquis 5 mg Tablet
5 mg PO BID Qty: 60 1RF
Discontinued
amlodipine 10 mg tablet
10 mg PO DAILY
Discharge Orders:
Discharge Patient (As Directed); Ordered 04/24/24
Ordered By: Merari Finley
Care Plan Goals
Care Plan Goals:
Problem: Readiness for enhanced knowledge related to diagnosis and treatment plan
Goal: Understand your diagnosis and treatment plan needs, including medications if applicable.
Instructions: Know your diagnosis, underlying causes and treatment plan options, including medications if applicable. Consult with your health care team to learn about your diagnosis and treatment plan, including medications if applicable.
Discharge Date and Time
Print Language: MONGOLIAN
[2024-04-24 11:52] LABS: Glucose - Point of Care 253 mg/dl (70-99)
[2024-04-24] MEDS: NOVOLOG FLEXPEN-MODERATE RESISTANCE 5 UNITS SC (11:52)
[2024-04-24 11:56] VITALS: BP 134/60
--- NOTE | 2024-04-24 12:31 | PTCARENOTE ---
Discharge paperwork reviewed with pt and at bedside. IV and tele pack removed. Pt escorted to vehicle via wheelchair for discharge home.
== END 2024-04-24 15:22 | disposition home or self-care (01) | DRG 243 ==
LOC: IVU 15:15
PROVIDERS: Emergency Medicine; Internal Medicine Cardiovascular Disease; ADMITTING PHYSICIAN Family Medicine; ATTENDING PHYSICIAN Internal Medicine; EMERGENCY PHYSICIAN Emergency Medicine; FAMILY PHYSICIAN Family Medicine; OTHER PHYSICIAN Thoracic Surgery (Cardiothoracic Vascular Surgery)
PROC: 5A1223Z Performance of Cardiac Pacing, Continuous (ICD-10-PCS; 2024-04-20)
PROC: 02H63JZ Insertion of Pacemaker Lead into Right Atrium, Percutaneous Approach (ICD-10-PCS; 2024-04-21)
PROC: 0JH606Z Insertion of Pacemaker, Dual Chamber into Chest Subcutaneous Tissue and Fascia, Open Approach (ICD-10-PCS; 2024-04-21)
PROC: 02HK3JZ Insertion of Pacemaker Lead into Right Ventricle, Percutaneous Approach (ICD-10-PCS; 2024-04-21)
DX: I49.5 Sick sinus syndrome (principal); E87.1 Hypo-osmolality and hyponatremia; I44.2 Atrioventricular block, complete; I5A Non-ischemic myocardial injury (non-traumatic); Z66 Do not resuscitate; N18.30 Chronic kidney disease, stage 3 unspecified; I12.9 Hypertensive chronic kidney disease with stage 1 through stage 4 chronic kidney disease, or unspecified chronic kidney disease; E11.8 Type 2 diabetes mellitus with unspecified complications; M19.90 Unspecified osteoarthritis, unspecified site; I48.0 Paroxysmal atrial fibrillation; E11.22 Type 2 diabetes mellitus with diabetic chronic kidney disease; I25.10 Atherosclerotic heart disease of native coronary artery without angina pectoris; Z95.1 Presence of aortocoronary bypass graft
CPT/HCPCS: 33208; 33210; 71045; 80048; 80053; 82962; 83735; 84100; 84484; 85025; 85027; 93005; 94640; 94762; 96374; 96375; 97161; 97165; 99285; C1769; C1785; C1887; C1892; C1894; C1898

== ENCOUNTER 2024-05-15 17:34 | Outpatient (RCR) | payer OTHER, SELFPAY ==
[2024-05-15 15:03] LABS: Glucose - Point of Care 114 mg/dl (70-99)
[2024-05-15 16:01] LABS: Glucose - Point of Care 106 mg/dl (70-99)
== END 2024-05-15 23:59 | disposition home or self-care (01) ==
LOC: CRHB 17:34
PROVIDERS: ATTENDING PHYSICIAN Internal Medicine Cardiovascular Disease
DX: Z95.4 Presence of other heart-valve replacement (principal)
CPT/HCPCS: 82962; G0422; G0423

== ENCOUNTER → 2024-05-16 10:10 | Outpatient (REF) | payer OTHER, SELFPAY | LOC: HWRCS 10:10 | PROVIDERS: ATTENDING PHYSICIAN Internal Medicine Cardiovascular Disease; FAMILY PHYSICIAN Family Medicine | DX: I35.0 Nonrheumatic aortic (valve) stenosis (principal); Z68.28 Body mass index [BMI] 28.0-28.9, adult; I49.5 Sick sinus syndrome; I48.91 Unspecified atrial fibrillation; E11.9 Type 2 diabetes mellitus without complications; Z95.1 Presence of aortocoronary bypass graft; K21.9 Gastro-esophageal reflux disease without esophagitis | CPT/HCPCS: 71046; 93308 ==

== ENCOUNTER 2025-05-15 13:32 | Day surgery (SDC) | payer OTHER, SELFPAY ==
[2025-05-15] VITALS (16 sets, daily range): BP systolic 143–179; BP diastolic 60–73; BMI 29.9
[2025-05-15 14:10] LABS: Glucose - Point of Care 150 mg/dl (70-99)
[2025-05-15 16:23] LABS: ACT-LR - POC 340 Seconds (116-155)
--- NOTE | 2025-05-15 17:24 | PTCARENOTE ---
pt admitted from ccl. left radial is cdi. right groin cdi. pt offers no complaints at this time. pt educated about plan of care and pt verbalized understanding. call del valle within reach. at bedside visiting.
--- NOTE | 2025-05-15 17:31 | ITS.CL.PN ---
Class C Driver - Procedure Note
Procedure
Procedure Note:
CARDIAC CATHETERIZATION REPORT
Date of Procedure: 05/15/2025
Referring: Dr. Tulio Victor MD
Indication: typical angina despite maximally tolerated antianginal therapy, prior history of CABG and PCI
PROCEDURE(S)
1. left heart catheterization
2. coronary angiography
3. bypass graft angiography
4. PCI with GRETEL to SVG-OM
ACCESS:
1. 6F left radial artery (closure: radial band; abandoned due to inability to sufficiently manipulate catheters due to significant left subclavian stenosis)
2. 6F right common femoral artery (closed with Angioseal x1)
CATHETERS
1. 6F TY
2. 6F JL4
3. 6F JR4
4. 6F AR1
5. 6F AL1 guide
MODERATE SEDATION: 90 minutes of moderate sedation was utilized. An independent medical billing assistant was present to assist with and help manage the patient's level of consciousness and physiologic status.
HEMODYNAMIC DATA
LV 186/15 (EDP 27) mmHg
AO 170/60 (mean 104) mmHg
CORONARY ANGIOGRAPHY
Dominance: Right
LM: diffusely diseased
LAD: totally occluded proximally after a small diffusely diseased diagonal branch. The mid to distal vessel is supplied via the MCKEE with brisk runoff. There is diffuse mild to moderate disease in the mid to distal LAD, mildly progressed from 2023
angiography.
LCx: gives rise to a moderate caliber OM1 and small OM2. On injection of the left main there is competitive flow visualized in the proximal LCx. The OM1 is supplied via the SVG which then fills the OM 2 retrograde.
RCA: proximally occluded with the RPDA and RPL branches supplied via collaterals from an atrial branch.
BYPASS GRAFT ANGIOGRAPHY:
MCKEE-LAD: the MCKEE is taken as a pedicle and forms an anastomosis with the mid-LAD. The MCKEE is widely patent.
SVG-OM: there is a 60-70% stenosis in the body of the perviously placed proximal stent.
SVG-diag: known to be occluded and not selectively engaged
SVG-RPDA: known to be occluded and not selectively engaged
PCI to SVG-OM
Heparin was given to an achieve ACT greater than 300. The vein graft was engaged with an AL-1 guide catheter and a Runthrough wire placed in the distal graft. Initial lesion preparation was performed with a 2.5 mm semicompliant balloon with full
expansion. A stent was unable to be delivered, so a 6F guideliner was placed and the 2.5 mm balloon used unsuccessfully to advance the GuideLiner past the lesion. Further lesion preparation was then performed with a 3.5 mm NC balloon, after which a
3.5 x 18 mm Lap[place] drug-eluting stent was delivered and deployed at 16 hemant followed by post dilation to 18 hemant with a 3.5 mm NC balloon. Final angiographic result was outstanding. The wire and guide were removed. The groin was closed with an
Angio-Seal and a TR band placed on the left radial artery.
RADIATION: dose 1331 mGy; DAP 84 Gy*cm2; fluoroscopy time 37 min
CONCLUSIONS
1. Coronary artery disease as described with ISR of the previously placed GRETEL in the SVG to OM.
2. Moderately elevated LV filling pressure in the setting of systemic hypertension
3. No aortic stenosis on hemodynamic pullback
4. Successful PCI with GRETEL to the SVG with 3.5 x 18 mm [place] drug-eluting stent postdilated to high-pressure with a 3.5 mm NC balloon
RECOMMENDATIONS
1. Aggressive secondary prevention of coronary artery disease
2. Optimization of antianginal therapy
3. DAPT with ASA and Plavix for 6 months. After 6 months can narrow to OAC monotherapy or OAC plus ASA
Copy to: Dr. Tulio Victor MD (sanitation manager); Dr. Linwood Johnson MD (PCP)
Signed: Pineda Gonzalez MD, PhD
[2025-05-15] MEDS: AMARYL 2 MG PO (20:18)
[2025-05-15] MEDS: CARDIZEM CD 180 MG PO (20:18)
[2025-05-15] MEDS: IMDUR (EXTENDED RELEASE) 60 MG PO (20:18)
[2025-05-15] MEDS: ZESTRIL 20 MG PO (20:18)
[2025-05-15] MEDS: LIPITOR 10 MG PO (20:18)
[2025-05-15] MEDS: XANAX 0.25 MG PO (21:56)
[2025-05-15] MEDS: APRESOLINE 10 MG PO (21:56)
--- NOTE | 2025-05-15 22:03 | PTCARENOTE ---
Assumed care of the pt @ 1900. AAOx3 a/v/paced on the monitor. Rt groin cath site was oozing at change of shift. dressing removed and pressure was held 30 minutes groin soft dressing c/d/i Lt radial band intact distal pulse ox 97%. Call del valle within
reach.
[2025-05-15 22:23] LABS: Glucose - Point of Care 120 mg/dl (70-99)
[2025-05-16] VITALS: BP 156/60
[2025-05-16 01:00] VITALS: BP 146/54
[2025-05-16 02:00] VITALS: BP 137/51
[2025-05-16 03:20] LABS: Hematocrit 36.9 % (39.0-52.0); Hemoglobin 12.9 g/dL (13.0-18.0); Mean Corp Hgb Conc. 35.0 g/dL (33.0-37.0); Mean Corpuscular Volume 86.8 fL (80.0-94.0); Platelet Count 157 10^3/uL (130-400); Red Cell Dist. Width 13.4 % (11.5-14.5)
[2025-05-16 03:44] LABS: Blood Urea Nitrogen 15 mg/dl (9-20); Calcium 8.7 mg/dl (8.4-10.2); Carbon Dioxide 22 mmol/L (22-30); Chloride 106 mmol/L (98-107); Estimated Creatinine Clearance 45 ml/min; Glucose 144 mg/dl (70-99); HDL Cholesterol 27 mg/dl; LDL Cholesterol, Calculated 30 mg/dl; Potassium 4.2 mmol/L (3.5-5.1); Sodium 135 mmol/L (135-145); Very Low Density Lipoprotein 43 mg/dl (0-30); eGFR 58.89
[2025-05-16 07:18] VITALS: BP 152/62
[2025-05-16 07:20] LABS: Glucose - Point of Care 144 mg/dl (70-99)
--- NOTE | 2025-05-16 08:00 | PTCARENOTE ---
Received patient for 7a-7p shift. Patient AAOx3, without complaints. Right groin cath site with small amount of serosanguineous drainage, unchanged from previous. Left radial site dressing c/d/i, no bleeding/hematoma noted at either site. AV paced
on general forecaster, VSS. Patient ambulating in room without assistance, tolerating po intake. +BM today, voiding without issues. Medications administered as ordered. Patient denies pain at this time. Will continue to monitor.
[2025-05-16] MEDS: LOW STRENGTH ASPIRIN 81 MG PO (08:01)
[2025-05-16] MEDS: PLAVIX 75 MG PO (08:01)
[2025-05-16] MEDS: XANAX 0.25 MG PO (08:01)
[2025-05-16] MEDS: PROTONIX 40 MG PO (08:01)
[2025-05-16] MEDS: AMARYL 2 MG PO (08:01)
[2025-05-16] MEDS: TOPROL XL 75 MG PO (08:02)
[2025-05-16] MEDS: APRESOLINE 10 MG PO (08:02)
[2025-05-16] MEDS: CARDIZEM CD 180 MG PO (08:03)
[2025-05-16] MEDS: ELIQUIS 5 MG PO (08:03)
[2025-05-16 08:51] LABS: Glycohemoglobin (HgbA1c) 8.4 % (4.0-5.6)
--- NOTE | 2025-05-16 09:27 | W.PN.CD ---
Today's Communication / Plan
-
Plan for Eliquis and Plavix x 6 months and then transition back to Eliquis and aspirin
Will have patient ambulate. If he continues to feel well then discharge later today
Impression / Plan
-
83-year-old male with history of coronary artery bypass grafting 1993 with stenting of SVG to OM 11/2020 paroxysmal atrial fibrillation, chronic anticoagulation with Eliquis Medtronic pacemaker, Medtronic/CoreValve evolute Pro 04/17/2025 who had
symptoms concerning for angina so was planned for cardiac catheterization. Patient underwent cardiac catheterization on 05/15/2025 he had significant in-stent stenosis of previous SVG to OM stent he underwent successful PCI of SVG to OM. Currently
feeling well with no complaints of chest pain or shortness of breath he says he feels better and no longer has the shoulder pain that he previously had. His catheterization site left radial appears fine. Telemetry stable.
.
Plan for Eliquis and Plavix x 6 months and then transition back to Eliquis and aspirin
Will have patient ambulate. If he continues to feel well then discharge later today
Physical Exam
Vital Signs/Labs
Vital Signs
Temp Pulse Resp BP Pulse Ox
97.9 F 76 16 152/62 96
05/16/25 07:21 05/16/25 08:03 05/16/25 07:21 05/16/25 08:03 05/16/25 07:21
05/15/25 05/16/25 05/17/25
06:59 06:59 06:59
Actual Weight 84.6 kg
05/16/25 02:48
05/16/25 02:48
Triglycerides 217 mg/dl (10-149) H 05/16/25 02:48
LDL Cholesterol, Calc 30 mg/dl 05/16/25 02:48
VLDL Cholesterol, Calc 43 mg/dl (0-30) H 05/16/25 02:48
HDL Cholesterol 27 mg/dl 05/16/25 02:48
Physical Exam
Constitutional: No acute distress
Cardiovascular: Systolic murmur present
Respiratory: Respiratory effort normal and Wheeze Absent
GI: Soft and Non tender
Neuro/Psych: Alert and Oriented
Other: Other (Left radial cath site is fine)
Data Reviewed
-
Date of Service: May 16, 2025
Medical Decision Making: Reviewed Test Results
Echo: Report Reviewed by me
Medical Tests (PFT, Pathology etc): Report Reviewed by me
Labs: Labs Reviewed by me
--- NOTE | 2025-05-16 09:47 | W.DS.TRANS ---
DC Summary - Interior Decorator Paperhanging
-
Discharge Instructions:
Discharge Diagnosis/Procedures Coronary artery disease with angioplasty with
stent to vein graft to OM
Diet Low Cholesterol,Diabetic, Carb Controlled
Activity Other activity
Additional Activity see activity sheet
Driving Restrictions No driving for 24 hours
Bathing Restrictions OK to Shower
Other Services Cardiac Rehab
Instructions:
Stand-Alone Forms: DC Instructions- Cath/EP Lab
Changes to Home Medications: Yes
Discharge Medications:
DC Medications w/original date entered in [facility]
alprazolam 0.25 mg tablet 0.25 mg PO TID anxiety 05/05/11
simvastatin 20 mg tablet 20 mg PO HS High Cholesterol 07/17/17
pantoprazole 40 mg tablet,delayed release 40 mg PO DAILY #90 tabs 09/13/21
glimepiride 2 mg tablet 2 mg PO BID Diabetes 03/01/24
nitroglycerin 0.4 mg sublingual tablet 0.4 mg sublingual [id number] PRN chest pain 03/01/24
vitamins A,C,Q-wbsk-phqsnl 2,148 mcg-113 mg-45 mg-17.4 mg tablet (PreserVision AREDS) 1 tab PO BID Supplement 03/01/24
hydralazine 10 mg tablet 10 mg PO TID 04/04/24
apixaban 5 mg tablet (Eliquis) 5 mg PO BID Blood clot prevention/tx #60 tabs 04/18/24
diltiazem HCl 180 mg tablet,extended release 24 hr 180 mg PO BID 05/15/25
isosorbide mononitrate 60 mg tablet,extended release 24 hr 60 mg PO BID 05/15/25
lisinopril 20 mg tablet 20 mg PO BID 05/15/25
metoprolol succinate 50 mg tablet,extended release 24 hr 75 mg PO DAILY 05/15/25
clopidogrel 75 mg tablet (Plavix) 75 mg PO DAILY #90 tabs 05/16/25
Home Medication Changes
Plavix added. Aspirin stopped.
Pending Results: No
[2025-05-16] MEDS: ZESTRIL 20 MG PO (11:02)
[2025-05-16] MEDS: IMDUR (EXTENDED RELEASE) 60 MG PO (11:02)
--- NOTE | 2025-05-16 12:28 | PTCARENOTE ---
Patient discharged at 1205. Escorted to car via wheelchair by RN without issues.
Discharged instructions reviewed with patient and at bedside, patient verbalized understanding. VSS, Left arm IV d/c'd without issues. Right groin and Left radial dressings removed, no bleeding/hematoma. Patient left with belongings, angioseal
card, stent card, discharge instructions and patient education folder. Medications administered as ordered prior to discharge.
--- NOTE | 2025-05-18 09:16 | CM ---
pt prev indep, dc to home with . no dc planning needs
== END 2025-05-16 12:03 | disposition home or self-care (01) ==
LOC: CATH 13:32
PROVIDERS: Nurse Practitioner Adult Health; ATTENDING PHYSICIAN Student in an Organized Health Care Education/Training Program; FAMILY PHYSICIAN Family Medicine; OTHER PHYSICIAN Internal Medicine Cardiovascular Disease
DX: I25.110 Atherosclerotic heart disease of native coronary artery with unstable angina pectoris (principal); Z95.1 Presence of aortocoronary bypass graft; T82.855A Stenosis of coronary artery stent, initial encounter; I35.0 Nonrheumatic aortic (valve) stenosis; I48.0 Paroxysmal atrial fibrillation; I12.9 Hypertensive chronic kidney disease with stage 1 through stage 4 chronic kidney disease, or unspecified chronic kidney disease; N18.32 Chronic kidney disease, stage 3b; E11.22 Type 2 diabetes mellitus with diabetic chronic kidney disease; E78.5 Hyperlipidemia, unspecified; K21.9 Gastro-esophageal reflux disease without esophagitis; Z95.0 Presence of cardiac pacemaker; Z95.2 Presence of prosthetic heart valve; Z87.891 Personal history of nicotine dependence; Z79.82 Long term (current) use of aspirin; Z79.84 Long term (current) use of oral hypoglycemic drugs; Z79.01 Long term (current) use of anticoagulants; Z79.02 Long term (current) use of antithrombotics/antiplatelets
CPT/HCPCS: 99152; 99153; C1894; C1725; C1887; C1769; 80048; 80061; 82962; 83036; 85027; 85347; 93005; 93459; C1760; C1874; C9604; Q9967

== ENCOUNTER 2025-06-23 12:48 | Inpatient (IN) | payer OTHER, SELFPAY ==
[2025-06-21 21:46] VITALS: BP 178/88
[2025-06-21 22:03] LABS: Hematocrit 40.5 % (39.0-52.0); Hemoglobin 14.1 g/dL (13.0-18.0); Mean Corp Hgb Conc. 34.8 g/dL (33.0-37.0); Mean Corpuscular Volume 86.0 fL (80.0-94.0); Nucleated Red Blood Cells % 0 % (-); Platelet Count 186 10^3/uL (130-400); Red Cell Dist. Width 13.4 % (11.5-14.5)
[2025-06-21 22:22] LABS: ALT (SGPT) 31 U/L (0-50); AST (SGOT) 26 U/L (17-59); Albumin 4.7 g/dl (3.5-5.0); Alkaline Phosphatase 79 U/L (38-126); Blood Urea Nitrogen 22 mg/dl (9-20); Calcium 9.5 mg/dl (8.4-10.2); Carbon Dioxide 24 mmol/L (22-30); Chloride 101 mmol/L (98-107); Glucose 181 mg/dl (70-99); Potassium 4.4 mmol/L (3.5-5.1); Sodium 133 mmol/L (135-145); Total Protein 7.3 g/dl (6.3-8.2); eGFR 45.06
[2025-06-21 22:28] LABS: Troponin I < 0.012 ng/ml
[2025-06-21 23:53] VITALS: BP 174/67
[2025-06-22] VITALS (10 sets, daily range): BP systolic 136–174; BP diastolic 59–86; BMI 28.7
[2025-06-22 01:10] LABS: Troponin I < 0.012 ng/ml
--- NOTE | 2025-06-22 01:58 | ED.GENMED ---
History of Present Illness
General
Chief Complaint: Chest Pain
Source: patient and spouse
Exam Limitations: none
Time Seen by Provider: 06/22/25 00:50
Nursing documentation reviewed up to this point in time: agreed with
History of Present Illness
History of Present Illness:
Note:
CHIEF COMPLAINT(S)
Severe chest pain and dyspnea on exertion.
HISTORY OF PRESENT ILLNESS
The patient is an 84-year-old male with a relevant past medical history of aortic valve replacement and pacemaker insertion, presenting with chest pain and difficulty breathing. He reports that symptoms started becoming more severe today at around 7
p.m. Initially, he experienced dyspnea and chest pain when walking at a normal pace, particularly when shopping. The pain radiates to his left shoulder and is associated with chest compression. The patient has a history of cardiac procedures,
including a stent placement last month on May 14 due to worsening pain and shortness of breath. Despite these interventions, he continues to experience symptoms, which have progressively worsened. The patient reports that the pain became
unbearable, leading him to seek emergency care.
PAST MEDICAL AND SURGICAL HISTORY
- Aortic valve replacement (two months ago, in March)
- Pacemaker insertion (four days following aortic valve replacement)
- Cardiac stents (most recent placed in April, total of five stents since 1993)
CHRONIC MEDICAL CONDITIONS SIGNIFICANTLY AFFECTING CARE
- Cardiovascular disease requiring multiple interventions
- Hypertension
REVIEW OF SYSTEMS
- Cardiovascular: Chest pain, left shoulder pain radiates with exertion. Dyspnea when walking at a normal pace.
- Musculoskeletal: Left shoulder pain.
- Respiratory: Shortness of breath on exertion.
PHYSICAL EXAM
General: Alert, no acute distress.
Skin: Warm, dry.
Head: Normocephalic, atraumatic.
Neck: Supple, trachea midline.
Eye Ears, nose, mouth and throat: Oral mucosa moist.
Cardiovascular: Normal peripheral perfusion, No edema.
Respiratory: Respirations are non-labored.
Gastrointestinal: Abdomen nondistended
Back: Normal range of motion, Normal alignment.
Musculoskeletal: Normal ROM, normal strength.
Neurological: Alert and oriented to person, place, time, and situation, No focal neurological deficit observed.
Psychiatric: Cooperative, appropriate mood & affect.
PROBLEM LIST
Acute:
- Exertional chest pain and dyspnea
- Possible inadequate blood flow due to stent issues
Chronic:
- Cardiovascular disease
- Hypertension
PLAN
- Keep the patient admitted for further evaluation.
- Cardiology team to assess for potential blockage; consider cardiac catheterization.
- Re-evaluate pacemaker function once the report is available.
- Monitor cardiac enzymes and blood pressure regularly.
- Continue current medication regimen, including blood thinners.
DIFFERENTIAL DIAGNOSIS
The Differential Diagnosis includes, in no particular order and is not limited to:
- Myocardial ischemia
- Congestive heart failure
- Angina pectoris
- Aortic stenosis
- Coronary artery disease
- Arrhythmia related to pacemaker dysfunction
- Acute coronary syndrome
- Pulmonary embolism
- Myocardial infarction
- Pericarditis
Disposition:
SUMMARY OF ENCOUNTER
The patient, an 84-year-old male with a significant cardiac history, including aortic valve replacement, pacemaker insertion, and multiple stents, presented with worsening dyspnea on exertion and chest pain. These symptoms have been steadily
increasing over the last few days, though present for months. Given the severity and persistence of the symptoms, and the patients history, admission for further cardiovascular evaluation and management was deemed necessary.
DISPOSITION
Admit.
MEDICAL DECISION MAKING
- Number and Complexity of Problems Addressed: Chronic conditions affecting care include cardiovascular disease and hypertension. Differential diagnosis includes myocardial ischemia, congestive heart failure, angina pectoris, aortic stenosis,
coronary artery disease, arrhythmia related to pacemaker dysfunction, acute coronary syndrome, pulmonary embolism, myocardial infarction, and pericarditis.
DIAGNOSIS
Dyspnea on exertion, unspecified (R06.09); Chest pain, unspecified (R07.9).
Past History
Past History
ED Past Medical History: CAD, GERD (Hiatal hernia), HTN, Hypercholesterolemia, NIDDM, Valvular disease and Other (Salmonella, ulcers)
ED Past Surgical History: Cardiac (CABG 1993, angioplasty with stents October 2004. Cardiac catheter 2008, medical management), Cholecystectomy (Laparoscopic cholecystectomy December 2010) and Other
Social History
Tobacco: Non-smoker
Alcohol: None
Drug: None
Personal:
Living: with family
Family History
Family History: Diabetes and Hypertension; Negative Sudden
Phy Exam
Physical Exam
Physical Exam:
.
Scores
Heart Score for Chest Pain Patients
STEMI patient?: No
History: Slightly or Non-Suspicious
ECG: Normal
Age: >/= 65 years
Risk Factors: 1 or 2 Risk Factors
Troponin: >1 - <3 x Normal Limit
Heart Score for Chest Pain Patients: 4
Heart Score Risk: 20.3% MACE over next 6 weeks
Course
Orders/Labs/Results
Orders:
Orders
06/21/25 21:41
Electrocardiogram (*1) Urgent
Reason for Study: Chest Pain
EKG- Treatment ONCE
06/21/25 21:56
Complete Blood Count/With Diff Urgent
Comprehensive Metabolic Panel Urgent
Troponin I Urgent
06/22/25 00:09
Electrocardiogram (*1) Urgent
Reason for Study: Other
Other Reason for Exam: repeat troponin
06/22/25 00:10
EKG- Treatment ONCE
Interrogate Pacemaker- Treatment ONCE
06/22/25 00:35
NT-proBNP Urgent
Comment: ADDED
Troponin I Urgent
06/22/25 01:59
CR Chest - 2 Views Urgent
Comment:
Reason For Exam: cp,dyspnea
06/22/25 02:09
Add On- LAB Urgent
Tests Added?: pro-BNP
06/22/25 02:26
Admit/Transfer Patient As Directed
Co-Sign Provider:
Level of Care: Observation services
Assign to:: Telemetry
Physician / Group: George
Diagnosis: Chest Pain
Reason for Telemetry: Chest Pain syndromes
Date to Stop Telemetry: 06/24/25
Time to Stop Telemetry: 11:00
PRN Pain Medication Management As Directed
May give lesser potent ordered pain med per pt: Yes
preference::
Protocol:: Medication orders for pain may be administered in a
manner that supports deferring to patient preference
when the pt is:
- Requesting an ordered lesser potent pain medication.
Least to most potent pain medications are defined
as: acetaminophen < NSAID < tramadol < opioids
(morphine, oxycodone, hydromorphone).
- Requesting a lesser dose of the same medication IF
ORDERED.
- Requesting a less intrusive route of administration
if both routes are prescribed by the provider (PO <
IV).
06/22/25 02:30
Code Status As Directed
Resuscitation Status: Full Code
06/22/25 04:02
Alprazolam [Xanax] 0.25 mg PO TID PRN Anxiety Anxiety
Dextrose 50%-Water [Dextrose 50% Syringe] 12.5 grams IV [id number] PRN
Glucagon [GlucaGen] 1 mg IM PRN PRN
Morphine Sulfate 2 mg IV Q4HPRN PRN
Nitroglycerin Sublingual [Nitrostat (Sublingual)] 0.4 mg SL [id number] PRN chest pain
06/22/25 04:02
Echo 2D MMode Doppler [Echo 2D MMode Color/Doppler] Routine
Reason for Study: Chest Pain, CHF
CARDIOLOGY CONSULT Routine
Consulting Provider: Fabiano Lemons
Was physician already notified: No
Reason for consult: Chest pain, CAD
Consult Notification Routine
Specialty to Notify: Cardiology
Date consulting provider notified: 06/22/25
Time consulting provider notified: 08:34
Notified:: Provider
Comment: FABIANO LEMONS
Activity As Directed
Activity Level: Ambulate
With Assistance
Bedside Glucose Monitoring As Directed
Frequency: AC&HS
Additional Instructions:: Change to q6h if pt on TPN, tube feeding or not eating
Bladder Scan As Directed
Follow Bladder Retention/Intermittent Cath Algorithm?: Yes
PRN if no void in __ hours: 6
Frequency: Per Retention Algorithm
If Bladder Scan Result >: 400
then:: Straight cath
EKG with chest pain [ECG as needed] As Directed
ECG as needed for:: Chest Pain
I/O [Intake/ Output] As Directed
Frequency: Per unit guidelines
Straight Cath As Directed
Frequency: Per Retention Algorithm
Additional Instructions: straight cath as needed per acute urinary retention algorithm for 24 hrs
Additional Instructions: for bladder scan greater than 400 mL
Vital Signs As Directed
Frequency: Per unit guidelines
Weight As Directed
Frequency: Daily
Oxygen Therapy [O2 Therapy] [RESP] Routine
Titrate/Wean O2 to maintain O2 sat greater than (%): 94
06/22/25 04:43
Basic Metabolic Panel IN AM
Cardiovascular Evaluation IN AM
Complete Blood Count/No Diff IN AM
Glycohemoglobin (HgbA1c) IN AM
Troponin I Q6H
06/22/25 05:00
Flush (0.9% Sodium Chloride) [Flush (Nss)] See Dose Instructions IV PER PROTOCOL
06/22/25 06:00
EKG [Electrocardiogram (*1)] IN AM
Reason for Study: Chest Pain
NPO
Allow oral meds: Yes
Allow clear liquids: Sips of Clears
06/22/25 07:30
Insulin Aspart Corrective Low [Novolog Flexpen-Low Resistance] See Protocol SC AC
06/22/25 08:00
Apixaban [Eliquis] 5 mg PO BID
Clopidogrel Bisulfate [Plavix] 75 mg PO DAILY
Diltiazem Extended Release [Cardizem Cd] 180 mg PO BID
HydrALAZINE [Apresoline] 25 mg PO TID
ISOSORBIDE MONOnitrate ER [Imdur (Extended Release)] 60 mg PO BID
Lisinopril [Zestril] 20 mg PO BID
Metoprolol Xl [Toprol Xl] 75 mg PO DAILY
Pantoprazole [Protonix] 40 mg PO DAILY
Vit C/Vit E/Lutein/Min/[place]-3 [Ocuvite Softgel] 1 cap PO BID
06/22/25 09:04
Insulin Aspart Corrective Low [Novolog Flexpen-Low Resistance] See Protocol SC Q6
06/22/25 09:12
Troponin I Q6H
06/22/25 Lunch
2000 calorie (17 carb) Diabetic
At Your Request: Full Participation
Diabetic Diet: Sodium, 2 Gram
06/22/25 13:01
Insulin Aspart Corrective Low [Novolog Flexpen-Low Resistance] See Protocol SC AC
06/22/25 22:00
Atorvastatin [Lipitor] 10 mg PO HS
06/23/25 05:26
Basic Metabolic Panel IN AM
Complete Blood Count/With Diff IN AM
06/23/25 Breakfast
Cholesterol Lowering
At Your Request: Limited, [employer] Service Tech Required
06/23/25 08:15
HydrALAZINE [Apresoline] 25 mg PO QID
06/23/25 08:32
Aspirin 325 mg PO NOW STA
06/23/25 09:30
HydrALAZINE [Apresoline] 25 mg PO ONCE ONE
06/23/25 16:00
HydrALAZINE [Apresoline] 50 mg PO TID
06/24/25 Breakfast
NPO
Allow oral meds: Yes
Allow clear liquids: No
Basic Metabolic Panel IN AM
Complete Blood Count/With Diff IN AM
06/24/25 08:00
Aspirin Chewable [Low Strength Aspirin] 81 mg PO DAILY
06/24/25 11:00
DC Protocol for Telemetry ONCE
06/25/25 06:00
Basic Metabolic Panel IN AM
Complete Blood Count/With Diff IN AM
06/26/25 06:00
Basic Metabolic Panel IN AM
Complete Blood Count/With Diff IN AM
06/27/25 06:00
Basic Metabolic Panel IN AM
Complete Blood Count/With Diff IN AM
06/28/25 06:00
Basic Metabolic Panel IN AM
Complete Blood Count/With Diff IN AM
06/29/25 06:00
Basic Metabolic Panel IN AM
Complete Blood Count/With Diff IN AM
06/30/25 06:00
Basic Metabolic Panel IN AM
Complete Blood Count/With Diff IN AM
Abnormal Lab Results
06/21/25 06/22/25 06/22/25
21:56 04:43 06:12
RBC 4.36 L 10^6/uL
(4.70-6.10)
Hgb
Hct 37.7 L %
(39.0-52.0)
Absolute Monos (auto) 0.7 H 10^3/uL
(0.1-0.6)
Monocytes %
Sodium 133 L mmol/L
(135-145)
BUN 22 H mg/dl
(9-20)
Creatinine 1.5 H mg/dL
(0.7-1.3)
Glucose 181 H mg/dl 110 H mg/dl
(70-99) (70-99)
Hemoglobin A1c 7.3 H %
(4.0-5.6)
POC Glucose 108 H mg/dl
()
06/22/25 06/22/25 06/22/25
13:19 16:47 22:01
RBC
Hgb
Hct
Absolute Monos (auto)
Monocytes %
Sodium
BUN
Creatinine
Glucose
Hemoglobin A1c
POC Glucose 131 H mg/dl 159 H mg/dl 246 H mg/dl
() () ()
06/23/25 06/23/25 06/23/25
08:24 11:30
RBC 4.17 L 10^6/uL
(4.70-6.10)
Hgb 12.6 L g/dL
(13.0-18.0)
Hct 36.3 L %
(39.0-52.0)
Absolute Monos (auto) 0.7 H 10^3/uL
(0.1-0.6)
Monocytes % 10.2 H %
(1.7-9.3)
Sodium 133 L mmol/L
(135-145)
BUN 28 H mg/dl
(9-20)
Creatinine 1.4 H mg/dL
(0.7-1.3)
Glucose 147 H mg/dl
()
Hemoglobin A1c
POC Glucose 136 H mg/dl 189 H mg/dl
() ()
06/23/25 05:26
06/23/25 05:26
Vital Signs
Initial and Last Documented VS:
Initial Vital Signs
Temp Pulse Resp BP Pulse Ox
98.1 F 75 18 178/88 96
06/21/25 21:46 06/21/25 21:46 06/21/25 21:46 06/21/25 21:46 06/21/25 21:46
Last Documented Vital Signs
Temp Pulse Resp BP Pulse Ox
98.5 F 63 16 133/55 97
06/23/25 19:00 06/23/25 20:30 06/23/25 19:00 06/23/25 20:30 06/23/25 19:00
*Pulse Oximetry
SaO2: 97
Oxygen Mode of Delivery: Room air
Patient hypoxic: no
*Critical Care Note
Total Time (30-74mins, 75-104mins- exclusive of procedures): Not Applicable
ED Attending Note
-
Portions of this chart may have been created with voice recognition software.� Occasional wrong word or��sound alike� substitutions may have occurred due to the inherent limitations of voice recognition software.
Discharge Plan
Departure
Patient Disposition: Admit
Date of Disposition: 06/22/25
Time of Disposition: 01:59
Presentation/result/management discussed w/ accepting MD/DO: Hospitalist
Discharge Problem:
Dyspnea on exertion, Chest pain
Interventions
Interventions:
*Risk Screen - Suicide Last Done: 06/21/25 21:51
*General Assessment Last Done: 06/22/25 02:02
*Neglect/Abuse Screening Last Done: 06/21/25 21:51
*ED- Fall Risk Assessment Last Done: 06/22/25 02:02
*ED COVID-19 Vaccine History Last Done: 06/22/25 02:02
*Nursing Disposition Last Done: 06/22/25 03:59
ED- Cardiac Assessment Last Done: 06/22/25 01:00
Discharge Date and Time
Discharge Date/Time: 06/22/25 03:59
--- NOTE | 2025-06-22 02:33 | HPS.HSE ---
Family Physician
-
Family Physician:
Chief Complaint
-
Chest Pain
History of Present Illness
Patient is an 84y M with PMH significant for ASCVD, hypertension and DM-II who presents to ED complaining of chest pain. Patient states that he started with exertional chest pain in March 2024. He underwent TAVR at that time (as well as PPM
placement) but states that his symptoms have only progressed. he has had increasing frequency and severity of symptoms in the past few months. He was seen here in April 2025 for repeat cardiac catheterization and had PCI / GRETEL to area of in-stent
restenosis in his saphenous vein graft. Patient states that his symptoms have continued nonetheless.
He reports pain / heaviness in the center of his chest with radiation of the pain into his L shoulder / arm. This previously occurred with exertion but has progressed to occurring with minimal activity and now occurs occasionally even while at
rest.
He has mild SOB associated with the chest discomfort. No diaphoresis or nausea.
Patient states that he walked through the house this evening to find his extra glasses and developed severe pain. He presented to the ED for further evaluation.
Medical History
Past Medical History
Past Medical History: Reports Other
Additional Past Medical History:
ASCVD
Paroxysmal Atrial Fibrillation
Sick Sinus Syndrome
Aortic Stenosis
Hypertension
DM-II
CKD III
GERD
Obesity
Urothelial Cell Cancer
Skin Cancer
Past Surgical History: Reports Other
Additional Past Surgical History:
CABG (1993)
Multiple PTCA with Stents (most recent 05/15/25)
TAVR
PPM Placement
Cholecystectomy
Herniorrhaphy
Left Nephrectomy
Skin Cancer Excision
Social History
Tobacco: Former Smoker (Quit smoking 45 years ago.)
Alcohol: None
Drug: None
Personal:
Living: With Family
Family History
Family History: Not pertinent
Allergies / Home Medications
Allergies reflects when Allergies were last updated in [facility].
Home Medications with original date entered in [facility]
Allergy/Medication List:
Allergies
Allergy/AdvReac Type Severity Reaction Status Date / Time
acetaminophen Allergy sick Verified 06/21/25 21:50
feeling in
stomach
and chest,
rapid
heart rate
NSAIDS (Non-Steroidal Allergy never Verified 06/21/25 21:50
Anti-Inflamma (Nsaids) takes
NSAIDS due
to having
only 1
kidney
Home Medications
alprazolam 0.25 mg tablet 0.25 mg PO TID anxiety 05/05/11
simvastatin 20 mg tablet 20 mg PO HS High Cholesterol 07/17/17
pantoprazole 40 mg tablet,delayed release 40 mg PO DAILY #90 tabs 09/13/21
glimepiride 2 mg tablet 2 mg PO BID Diabetes 03/01/24
nitroglycerin 0.4 mg sublingual tablet 0.4 mg sublingual [id number] PRN chest pain 03/01/24
vitamins A,C,K-phgm-zwsauy 2,148 mcg-113 mg-45 mg-17.4 mg tablet (PreserVision AREDS) 1 tab PO BID Supplement 03/01/24
hydralazine 10 mg tablet 25 mg PO TID 04/04/24
apixaban 5 mg tablet (Eliquis) 5 mg PO BID Blood clot prevention/tx #60 tabs 04/18/24
diltiazem HCl 180 mg tablet,extended release 24 hr 180 mg PO BID 05/15/25
isosorbide mononitrate 60 mg tablet,extended release 24 hr 60 mg PO BID 05/15/25
lisinopril 20 mg tablet 20 mg PO BID 05/15/25
metoprolol succinate 50 mg tablet,extended release 24 hr 75 mg PO DAILY 05/15/25
clopidogrel 75 mg tablet (Plavix) 75 mg PO DAILY #90 tabs 05/16/25
Review of Systems
-
History Source: Patient
A 12 point ROS was completed and negative except as noted: Yes
Constitutional: Reports Fatigue; Denies Fever or Chills
Respiratory: Reports Trouble Breathing; Denies Cough
Cardiac: Reports Chest Pain; Denies Diaphoresis, Palpitations or Syncope
Abdomen/GI: Denies Abdominal Pain, Nausea, Vomiting or Diarrhea
: Denies Dysuria or Frequency
Musculoskeletal: Denies Joint Pain or Edema
Neurological: Reports Headache; Denies Dizzy
Psych: Denies Depression or Anxiety
Physical Exam
Vital Signs
Vital Signs
Temp Pulse Resp BP Pulse Ox
98.1 F 61 16 174/67 97
06/21/25 21:46 06/22/25 00:00 06/21/25 23:53 06/21/25 23:53 06/22/25 01:59
Physical Exam
General: Other (84y M in no acute distress.)
HEENT: Moist mucous membranes and PERRLA
Respiratory: Clear; No Wheezes, Rales or Rhonchi
Cardiac: S1/S2 and Regular Rhythm; No Murmur
GI: Soft, Non Tender, Non Distended and Normal Bowel Sounds
Musculoskeletal: No Clubbing, No Cyanosis and No Edema
Neuro: AO x 3
Laboratory Results
-
06/21/25 21:56
06/21/25 21:56
Laboratory Results
Total Bilirubin 0.6 mg/dl (0.2-1.3) 06/21/25 21:56
AST 26 U/L (17-59) 06/21/25 21:56
ALT 31 U/L (0-50) 06/21/25 21:56
Alkaline Phosphatase 79 U/L (38-126) 06/21/25 21:56
Troponin I < 0.012 ng/ml 06/22/25 00:35
Impression/Plan
-
A/P: Patient is an 84y M with PMH significant for ASCVD, HTN and DM-II who presents to ED complaining of chest pain.
ASCVD
Unstable Angina
- Observe overnight for further evaluation and treatment.
- Patient with months of progressive symptoms and now with chest discomfort occurring at rest.
- EKG today is A-V paced. Troponin undetectable x 2 sets thus far.
- Continue current CV med regimen with no changes for now. On Eliquis + Plavix s/p most recent GRETEL (05/15/25).
- Cardiology evaluation for additional recommendations.
- Check Echo.
- Follow for any new / worsening symptoms.
Benign Hypertension
- Not well-controlled. ? secondary to discomfort or vice versa.
- Continue current med regimen with holding parameters.
- Adjust medications as needed for improved BP control.
DM-II
- Stable. Hold PO medications acutely.
- Follow glucose and cover with SSI as needed.
- Update A1C.
JAISON on CKD III
Solitary Kidney s/p Left Nephrectomy
- SCr = 1.5 compared to known baseline of 1.2.
- Follow for changes.
- ? trial of diuresis with systemic hypertension, persistent angina, etc.
Paroxysmal Atrial Fibrillation
SSS s/p PPM
- Stable. Currently A-V paced.
- Continue current med regimen including metoprolol / diltiazem and Eliquis.
DVT Prophylaxis: On Eliquis
Code Status: Full
[2025-06-22] MEDS: XANAX 0.25 MG PO ×2 (04:33→21:37)
[2025-06-22 04:54] LABS: Hematocrit 37.7 % (39.0-52.0); Hemoglobin 13.3 g/dL (13.0-18.0); Mean Corp Hgb Conc. 35.3 g/dL (33.0-37.0); Mean Corpuscular Volume 86.5 fL (80.0-94.0); Platelet Count 177 10^3/uL (130-400); Red Cell Dist. Width 13.3 % (11.5-14.5)
[2025-06-22 05:16] LABS: Troponin I < 0.012 ng/ml
[2025-06-22 05:21] LABS: Blood Urea Nitrogen 19 mg/dl (9-20); Calcium 9.3 mg/dl (8.4-10.2); Carbon Dioxide 25 mmol/L (22-30); Chloride 104 mmol/L (98-107); Estimated Creatinine Clearance 37 ml/min; Glucose 110 mg/dl (70-99); HDL Cholesterol 28 mg/dl; LDL Cholesterol, Calculated 51 mg/dl; Potassium 4.5 mmol/L (3.5-5.1); Sodium 137 mmol/L (135-145); Very Low Density Lipoprotein 24 mg/dl (0-30); eGFR 53.50
[2025-06-22 06:14] LABS: Glucose - Point of Care 108 mg/dl (70-99)
[2025-06-22 09:03] LABS: Glycohemoglobin (HgbA1c) 7.3 % (4.0-5.6)
[2025-06-22] MEDS: IMDUR (EXTENDED RELEASE) 60 MG PO ×2 (09:06→21:37)
[2025-06-22] MEDS: TOPROL XL 75 MG PO (09:07)
[2025-06-22] MEDS: PROTONIX 40 MG PO (09:07)
[2025-06-22] MEDS: CARDIZEM CD 180 MG PO ×2 (09:07→21:37)
[2025-06-22] MEDS: ELIQUIS 5 MG PO ×2 (09:08→21:37)
[2025-06-22] MEDS: APRESOLINE PO (09:09)
[2025-06-22] MEDS: PLAVIX 75 MG PO (09:09)
[2025-06-22] MEDS: ZESTRIL 20 MG PO ×2 (09:09→21:37)
[2025-06-22] MEDS: OCUVITE SOFTGEL PO (09:10)
[2025-06-22 09:58] LABS: Troponin I < 0.012 ng/ml
[2025-06-22] MEDS: APRESOLINE 25 MG PO ×3 (10:01→21:37)
--- NOTE | 2025-06-22 10:23 | CON.CAR ---
Consultation
Consultation Request
Date/Time Consultation Requested: 06/22/2025 8 AM
Date/Time Consultation Performed: 06/22/2025 9 AM
Requesting Provider: Hospitalist
Performing Provider: Dr. Victor
Reason for Consultation: Chest pain
Medical History
-
History of Present Illness:
84-year-old male known to me from previous office visits.History of coronary artery bypass grafting 1993 with stenting of SVG to OM 11/2020, in-stent stenosis and stenting of SVG to OM 05/15/2025, paroxysmal atrial fibrillation, chronic
anticoagulation with Eliquis Medtronic pacemaker,TAVR Medtronic/CoreValve evolute Pro . Patient presents with left upper chest shoulder and left upper arm discomfort which he thinks is angina. Patient had similar symptoms prior to his last
cardiac catheterization. Although he initially felt he had some improvement postprocedure he has still had some symptoms since his most recent coronary stenting. Plan was for continued medical therapy there were some discussions regarding Ranexa
but based on his creatinine clearance and his concern regarding his renal function we opted to not use this medication. Instead we continued with nitrates and his other medications. In addition he had his left shoulder injected by [facility] with
no improvement of intermittent upper chest and shoulder discomfort. He states he is continued to have some symptoms when he has increased exertion symptoms are relieved with rest. More recently he thinks he has had symptoms with less activity
since his last visit including yesterday he went to go get something in his house and he had discomfort in his left upper chest near shoulder, his shoulder left upper arm some radiation up to the neck. He states he took a nitroglycerin without much
improvement and then symptoms resolved after about 15 minutes. He states he had some light discomfort this morning as well. Despite the above symptoms his troponins have remained negative. He is hypertensive this morning. He has been compliant
with medical therapy and denies any other new symptoms.
Past medical history
Coronary bypass grafting MCKEE to LAD, RCA and diagonal grafts are occluded
Stenting of the SVG to OM 10/2020
Stenting of in-stent stenosis of SVG to OM1 05/15/2025
TAVR/Medtronic
Hypertension
PAF
Pacemaker/Medtronic
Hiatal hernia
Diabetes
Cholecystectomy
Diverticulosis
GERD
Left nephrectomy
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
Social History
Tobacco: Non-Smoker
Living: With Family
Family History
Family History: Reviewed & Not Pertinent
Allergies / Home Medications
Allergy/AdvReac Type Severity Reaction Status Date / Time
acetaminophen Allergy sick Verified 06/21/25 21:50
feeling in
stomach
and chest,
rapid
heart rate
NSAIDS (Non-Steroidal Allergy never Verified 06/21/25 21:50
Anti-Inflamma (Nsaids) takes
NSAIDS due
to having
only 1
kidney
�Medication �Instructions �Recorded �Confirmed �Type
alprazolam 0.25 mg tablet 0.25 mg PO TID anxiety 05/05/11 06/22/25 History
simvastatin 20 mg tablet 20 mg PO HS High Cholesterol 07/17/17 06/22/25 History
pantoprazole 40 mg tablet,delayed 40 mg PO DAILY #90 tabs 09/13/21 06/22/25 Rx
release
glimepiride 2 mg tablet 2 mg PO BID Diabetes 03/01/24 06/22/25 History
nitroglycerin 0.4 mg sublingual 0.4 mg sublingual [id number] PRN 03/01/24 06/22/25 History
tablet chest pain
vitamins A,C,W-xwxs-rtmspk 2,148 1 tab PO BID Supplement 03/01/24 06/22/25 History
mcg-113 mg-45 mg-17.4 mg tablet
(PreserVision AREDS)
hydralazine 10 mg tablet 25 mg PO TID 04/04/24 06/22/25 History
apixaban 5 mg tablet (Eliquis) 5 mg PO BID Blood clot 04/18/24 06/22/25 Rx
prevention/tx #60 tabs
diltiazem HCl 180 mg 180 mg PO BID 05/15/25 06/22/25 History
tablet,extended release 24 hr
isosorbide mononitrate 60 mg 60 mg PO BID 05/15/25 06/22/25 History
tablet,extended release 24 hr
lisinopril 20 mg tablet 20 mg PO BID 05/15/25 06/22/25 History
metoprolol succinate 50 mg 75 mg PO DAILY 05/15/25 06/22/25 History
tablet,extended release 24 hr
clopidogrel 75 mg tablet (Plavix) 75 mg PO DAILY #90 tabs 05/16/25 06/22/25 Rx
Review of Systems
-
All other systems: Negative unless noted
Physical Exam
Vital Signs
Temp Pulse Resp BP Pulse Ox
97.6 F 67 18 158/72 96
06/22/25 07:00 06/22/25 10:01 06/22/25 07:00 06/22/25 10:01 06/22/25 07:00
Lab Results
06/22/25 04:43
06/22/25 04:43
Troponin I < 0.012 ng/ml 06/22/25 09:12
Xvy-B-Xaltfwecsgx Pept Cancelled 06/22/25 02:06
Physical Exam
General: Well Developed, Well Nourished and No Apparent Distress
HEENT: Normocephalic and Moist Mucous Membranes
Respiratory: Clear
Cardiac: Regular Rhythm
GI: Soft, Non Tender and Normal Bowel Sounds
Musculoskeletal: No Cyanosis
Neuro: Awake and Alert
Hematologic/Lymphatic: No Lymphadenopathy
Impression / Plan
-
84-year-old male known to me from previous office visits.History of coronary artery bypass grafting 1993 with stenting of SVG to OM 11/2020, in-stent stenosis and stenting of SVG to OM 05/15/2025, paroxysmal atrial fibrillation, chronic
anticoagulation with Eliquis Medtronic pacemaker,TAVR Medtronic/CoreValve evolute Pro . Patient presents with left upper chest shoulder and left upper arm discomfort which he thinks is angina. Patient had similar symptoms prior to his last
cardiac catheterization. Although he initially felt he had some improvement postprocedure he has still had some symptoms since his most recent coronary stenting. Plan was for continued medical therapy there were some discussions regarding Ranexa
but based on his creatinine clearance and his concern regarding his renal function we opted to not use this medication. Instead we continued with nitrates and his other medications. In addition he had his left shoulder injected by [facility] with
no improvement of intermittent upper chest and shoulder discomfort. He states he is continued to have some symptoms when he has increased exertion symptoms are relieved with rest. More recently he thinks he has had symptoms with less activity
since his last visit including yesterday he went to go get something in his house and he had discomfort in his left upper chest near shoulder, his shoulder left upper arm some radiation up to the neck. He states he took a nitroglycerin without much
improvement and then symptoms resolved after about 15 minutes. He states he had some light discomfort this morning as well. Despite the above symptoms his troponins have remained negative. He is hypertensive this morning. He has been compliant
with medical therapy and denies any other new symptoms.
Past medical history
Coronary bypass grafting MCKEE to LAD, RCA and diagonal grafts are occluded
Stenting of the SVG to OM 10/2020
Stenting of in-stent stenosis of SVG to OM1 05/15/2025
TAVR/Medtronic
Hypertension
PAF
Pacemaker/Medtronic
Hiatal hernia
Diabetes
Cholecystectomy
Diverticulosis
GERD
Left nephrectomy
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
Chest discomfort. Left shoulder chest and left upper arm discomfort similar to what is described in the past on 1 hand the exertional component is consistent with angina although the troponins have remained negative. Patient has had recent
stenting of SVG to . He did not have resolution of all of his symptoms with this procedure may be related to residual branch disease or other factors. Plan was continued medical therapy. Patient's had some increase in frequency of symptoms. He
is significantly hypertensive which may also contribute.
- Continue to optimize medical therapy for CAD
- Check follow-up troponin since he had some symptoms this morning.
- Will review issues with interventional cardiology/Dr. Savage as we determined whether to proceed whether with repeat catheterization to further assess the recently placed stent to SVG to OM.
.
TAVR.. Stable by last echo
.
Pacemaker
.
Coronary artery disease/coronary artery bypass grafting/stenting of SVG to OM1 with most recent procedure 05/15/2025
.
Hypertension. Appears suboptimal control.
-Titrate hydralazine for additional blood pressure control
.
Diabetes management as directed by primary team
Data Reviewed
-
EKG: Report Reviewed by me
Radiology: Report Reviewed by me
Medical Tests (Nuc Med, Echo etc): Report Reviewed by me
Labs: Labs Reviewed by me
--- NOTE | 2025-06-22 11:44 | W.PN.HOSP.TC ---
Today's Communication/Plan
-
Monitor vital signs see plan
Nonbillable note
Cardiology following
Assessment / Plan
Assessment / Plan
General: Other (84y M in no acute distress.)
HEENT: Moist mucous membranes and PERRLA
Respiratory: Clear; No Wheezes, Rales or Rhonchi
Cardiac: S1/S2 and Regular Rhythm; No Murmur
GI: Soft, Non Tender, Non Distended and Normal Bowel Sounds
Musculoskeletal: No Edema
Neuro: AO x 3
ASCVD
Unstable Angina
- Observe overnight for further evaluation and treatment.
- Patient with months of progressive symptoms and now with chest discomfort occurring at rest.
- EKGis A-V paced. Troponin undetectable
- Continue current CV med regimen with no changes for now. On Eliquis + Plavix s/p most recent GRETEL (05/15/25).
Cardiology following, will be discussing with interventional to see if need catheterization
- Check Echo.
- Follow for any new / worsening symptoms.
Benign Hypertension
- Not well-controlled. ? secondary to discomfort or vice versa.
- Continue current med regimen with holding parameters.
- Adjust medications as needed for improved BP control.
DM-II
- Stable. Hold PO medications acutely.
- Follow glucose and cover with SSI as needed.
- A1C 7.3
JAISON on CKD III
Solitary Kidney s/p Left Nephrectomy
- SCr = 1.5 compared to known baseline of 1.2.
- Follow for changes.
Paroxysmal Atrial Fibrillation
SSS s/p PPM
- Stable. Currently A-V paced.
- Continue current med regimen including metoprolol / diltiazem and Eliquis.
DVT Prophylaxis: On Eliquis
Code Status: Full
Anticipated Discharge: Within 24 hours
Subjective/Interval History
-
Date of Service: June 22, 2025
has intermittent chest pain
Objective Data
-
Labs:
Laboratory Results
06/22/25
04:43
WBC 6.7
Hgb 13.3
Hct 37.7 L
Plt Count 177
Sodium 137
Potassium 4.5
Chloride 104
Carbon Dioxide 25
BUN 19
Creatinine 1.3
Glucose 110 H
Calcium 9.3
Vital Signs:
Vital Signs
Temp Pulse Resp BP Pulse Ox
97.6 F 67 18 158/72 96
06/22/25 07:00 06/22/25 10:01 06/22/25 07:00 06/22/25 10:01 06/22/25 07:00
[2025-06-22 13:20] LABS: Glucose - Point of Care 131 mg/dl (70-99)
--- NOTE | 2025-06-22 15:40 | CM ---
Alert awake oriented patient who lives with his Debo in 1 one story home with 2 steps to enter. He is independent in driving and all ADLs. He uses no adaptive devices.Offered VN his declined need. Isaac explained copy given . Pt did not
sign [facility].
No hx of VN /SNF Hx of out pt cardiac rehab
[facility]
PCP DR Johnson
PLAN Home no needs
[2025-06-22 16:48] LABS: Glucose - Point of Care 159 mg/dl (70-99)
[2025-06-22] MEDS: NOVOLOG FLEXPEN-LOW RESISTANCE 1 UNITS SC (17:31)
[2025-06-22] MEDS: LIPITOR 10 MG PO (21:37)
[2025-06-22] MEDS: OCUVITE SOFTGEL 1 CAP PO (21:38)
[2025-06-22 22:03] LABS: Glucose - Point of Care 246 mg/dl (70-99)
[2025-06-23 03:33] VITALS: BP 140/53
[2025-06-23 05:55] LABS: Hematocrit 36.3 % (39.0-52.0); Hemoglobin 12.6 g/dL (13.0-18.0); Mean Corp Hgb Conc. 34.7 g/dL (33.0-37.0); Mean Corpuscular Volume 87.1 fL (80.0-94.0); Nucleated Red Blood Cells % 0 % (-); Platelet Count 189 10^3/uL (130-400); Red Cell Dist. Width 13.5 % (11.5-14.5)
[2025-06-23 06:00] VITALS: BMI 28.6
[2025-06-23] MEDS: XANAX 0.25 MG PO ×3 (06:08→22:04)
[2025-06-23 06:21] LABS: Blood Urea Nitrogen 28 mg/dl (9-20); Calcium 9.4 mg/dl (8.4-10.2); Carbon Dioxide 23 mmol/L (22-30); Chloride 104 mmol/L (98-107); Estimated Creatinine Clearance 35 ml/min; Glucose 147 mg/dl (70-99); Potassium 4.4 mmol/L (3.5-5.1); Sodium 133 mmol/L (135-145); eGFR 48.95
[2025-06-23 08:11] VITALS: BP 148/60
[2025-06-23 08:25] LABS: Glucose - Point of Care 136 mg/dl (70-99)
[2025-06-23] MEDS: CARDIZEM CD 180 MG PO ×2 (08:30→20:30)
[2025-06-23] MEDS: APRESOLINE 25 MG PO ×2 (08:31→09:45)
[2025-06-23] MEDS: OCUVITE SOFTGEL 1 CAP PO ×2 (08:31→20:30)
[2025-06-23] MEDS: IMDUR (EXTENDED RELEASE) 60 MG PO ×2 (08:31→20:30)
[2025-06-23] MEDS: ZESTRIL 20 MG PO ×2 (08:31→20:30)
[2025-06-23] MEDS: TOPROL XL 75 MG PO (08:31)
[2025-06-23] MEDS: PROTONIX 40 MG PO (08:31)
--- NOTE | 2025-06-23 08:37 | W.PN.CD ---
Today's Communication / Plan
-
-Issues reviewed with interventional cardiology/Dr. Savage plan for cardiac catheterization this admission. Patient's last dose of Eliquis was last night. Patient will require groin access for cath. Plan to hold Eliquis today and cardiac
catheterization 06/24/2025. Will start aspirin today so the patient is on aspirin and Plavix for procedure tomorrow
Hydralazine increased for additional blood pressure control
Impression / Plan
-
84-year-old male known to me from previous office visits.History of coronary artery bypass grafting 1993 with stenting of SVG to OM 11/2020, in-stent stenosis and stenting of SVG to OM 05/15/2025, paroxysmal atrial fibrillation, chronic
anticoagulation with Eliquis Medtronic pacemaker,TAVR Medtronic/CoreValve evolute Pro . Patient presents with left upper chest shoulder and left upper arm discomfort which he thinks is angina. Patient had similar symptoms prior to his last
cardiac catheterization. Although he initially felt he had some improvement postprocedure he has still had some symptoms since his most recent coronary stenting. Plan was for continued medical therapy there were some discussions regarding Ranexa
but based on his creatinine clearance and his concern regarding his renal function we opted to not use this medication. Instead we continued with nitrates and his other medications. In addition he had his left shoulder injected by [facility] with
no improvement of intermittent upper chest and shoulder discomfort. He states he is continued to have some symptoms when he has increased exertion symptoms are relieved with rest. More recently he thinks he has had symptoms with less activity
since his last visit including yesterday he went to go get something in his house and he had discomfort in his left upper chest near shoulder, his shoulder left upper arm some radiation up to the neck. He states he took a nitroglycerin without much
improvement and then symptoms resolved after about 15 minutes. He states he had some light discomfort this morning as well. Despite the above symptoms his troponins have remained negative. He is hypertensive this morning. He has been compliant
with medical therapy and denies any other new symptoms.
Past medical history
Coronary bypass grafting MCKEE to LAD, RCA and diagonal grafts are occluded
Stenting of the SVG to OM 10/2020
Stenting of in-stent stenosis of SVG to OM1 05/15/2025
TAVR/Medtronic
Hypertension
PAF
Pacemaker/Medtronic
Hiatal hernia
Diabetes
Cholecystectomy
Diverticulosis
GERD
Left nephrectomy
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
Chest discomfort. Left shoulder chest and left upper arm discomfort similar to what is described in the past on 1 hand the exertional component is consistent with angina although the troponins have remained negative. Patient has had recent
stenting of SVG to OM. He did not have resolution of all of his symptoms with this procedure may be related to residual branch disease or other factors. Plan was continued medical therapy. Patient's had some increase in frequency of symptoms. He
is significantly hypertensive which may also contribute.
- Continue to optimize medical therapy for CAD
-Troponins negative.
-Issues reviewed with interventional cardiology/Dr. Savage plan for cardiac catheterization this admission. Patient's last dose of Eliquis was last night. Patient will require groin access for cath. Plan to hold Eliquis today and cardiac
catheterization 06/24/2025. Will start aspirin today so the patient is on aspirin and Plavix for procedure tomorrow
.
TAVR.. Stable by last echo
.
Pacemaker
.
Coronary artery disease/coronary artery bypass grafting/stenting of SVG to OM1 with most recent procedure 05/15/2025
.
Hypertension. Appears suboptimal control.
-Titrate hydralazine for additional blood pressure control
.
Diabetes management as directed by primary team
Physical Exam
Vital Signs/Labs
Vital Signs
Temp Pulse Resp BP Pulse Ox
97.5 F 62 14 148/60 96
06/23/25 08:11 06/23/25 08:11 06/23/25 08:11 06/23/25 08:11 06/23/25 08:11
06/22/25 06/23/25 06/24/25
06:59 06:59 06:59
Actual Weight 81.737 kg 81.465 kg
06/23/25 05:26
06/23/25 05:26
Triglycerides 123 mg/dl (10-149) 06/22/25 04:43
LDL Cholesterol, Calc 51 mg/dl 06/22/25 04:43
VLDL Cholesterol, Calc 24 mg/dl (0-30) 06/22/25 04:43
HDL Cholesterol 28 mg/dl 06/22/25 04:43
06/22/25 06/22/25
00:35 02:06
Vix-R-Foxvetxiqkz Pept 147 Cancelled
LAB Results
06/21/25 06/22/25 06/22/25
21:56 00:35 04:43
Troponin I < 0.012 < 0.012 < 0.012
06/22/25 06/22/25
09:12 16:02
Troponin I < 0.012 Cancelled
Physical Exam
Constitutional: No acute distress
Cardiovascular: Rhythm & rate is regular
Respiratory: Wheeze Absent and Rhonchi Absent
GI: Soft and Normal bowel sounds
Neuro/Psych: Alert
Data Reviewed
-
Date of Service: June 23, 2025
Medical Decision Making: Reviewed Test Results
Echo: Report Reviewed by me
X-Ray/CT/US/MRI/NUC/PET: Report Reviewed by me
Labs: Labs Reviewed by me
[2025-06-23] MEDS: APRESOLINE PO (08:38)
[2025-06-23] MEDS: ELIQUIS PO (08:49)
[2025-06-23] MEDS: ASPIRIN 325 MG PO (09:45)
[2025-06-23] MEDS: PLAVIX 75 MG PO (09:45)
[2025-06-23] MEDS: NOVOLOG FLEXPEN-LOW RESISTANCE SC ×3 (09:45→22:03)
[2025-06-23 11:14] VITALS: BP 134/56
[2025-06-23 11:32] LABS: Glucose - Point of Care 189 mg/dl (70-99)
--- NOTE | 2025-06-23 12:44 | W.PN.HOSP.TC ---
Today's Communication/Plan
-
monitor vitals
see plan
hold eliquis
cath tomorrow
Assessment / Plan
Assessment / Plan
General: Other (84y M in no acute distress.)
HEENT: Moist mucous membranes and PERRLA
Respiratory: Clear; No Wheezes, Rales or Rhonchi
Cardiac: S1/S2 and Regular Rhythm; No Murmur
GI: Soft, Non Tender, Non Distended and Normal Bowel Sounds
Musculoskeletal: No Edema
Neuro: AO x 3
ASCVD
Unstable Angina
- Patient with months of progressive symptoms and now with chest discomfort occurring at rest.
- EKGis A-V paced. Troponin undetectable
- Continue current CV med regimen with no changes for now. On Eliquis + Plavix s/p most recent GRETEL (05/15/25).
Cardiology following, will be discussing with interventional to see if need catheterization
- Echo 06/22 with preserved EF
- Follow for any new / worsening symptoms. Given patient's symptoms, cardiology decided on cardiac catheterization this admission. Eliquis on hold, last dose 06/22 evening. Plan for catheter tomorrow 06/23. Currently on dual antiplatelet therapy
Benign Hypertension
- Not well-controlled. ? secondary to discomfort or vice versa.
- Continue current med regimen with holding parameters.
- Adjust medications as needed for improved BP control.
Hyponatremia
Monitor
DM-II
- Stable. Hold PO medications acutely.
- Follow glucose and cover with SSI as needed.
- A1C 7.3
JAISON on CKD III
Solitary Kidney s/p Left Nephrectomy
- SCr = 1.5 compared to known baseline of 1.2.
- Creatinine now 1.4
Paroxysmal Atrial Fibrillation
SSS s/p PPM
- Stable. Currently A-V paced.
- Continue current med regimen including metoprolol / diltiazem; Eliquis on hold
DVT Prophylaxis: On Eliquis, on hold for catheterization 06/23
Code Status: Full
Anticipated Discharge: 24 - 48 hours
Subjective/Interval History
-
Date of Service: June 23, 2025
denies sob
Objective Data
-
Labs:
Laboratory Results
06/23/25
05:26
WBC 6.9
Hgb 12.6 L
Hct 36.3 L
Plt Count 189
Sodium 133 L
Potassium 4.4
Chloride 104
Carbon Dioxide 23
BUN 28 H
Creatinine 1.4 H
Glucose 147 H
Calcium 9.4
Vital Signs:
Vital Signs
Temp Pulse Resp BP Pulse Ox
97.6 F 66 16 134/56 95
06/23/25 11:14 06/23/25 11:14 06/23/25 11:14 06/23/25 11:14 06/23/25 11:14
I&O
06/22/25 06/23/25 06/24/25
06:59 06:59 06:59
Intake Total 1440 / 1440
Balance 1440 / 1440
[2025-06-23 14:43] LABS: Glucose - Point of Care 147 mg/dl (70-99)
[2025-06-23 15:39] VITALS: BP 121/51
--- NOTE | 2025-06-23 15:48 | CM ---
Patient seen bedside.
Denies home care needs.
Plan cardiac cath tomorrow.
IMM reviewed and signed.
Plan: Cath, home no needs anticipated.
[2025-06-23] MEDS: APRESOLINE 50 MG PO ×2 (16:07→22:03)
[2025-06-23 16:41] LABS: Glucose - Point of Care 161 mg/dl (70-99)
[2025-06-23 19:00] VITALS: BP 133/55
[2025-06-23 21:40] LABS: Glucose - Point of Care 182 mg/dl (70-99)
[2025-06-23] MEDS: LIPITOR 10 MG PO (22:03)
[2025-06-23 23:00] VITALS: BP 158/59
[2025-06-24] VITALS (11 sets, daily range): BP systolic 118–155; BP diastolic 51–84; BMI 28.7
[2025-06-24 06:00] LABS: Hematocrit 34.2 % (39.0-52.0); Hemoglobin 12.0 g/dL (13.0-18.0); Mean Corp Hgb Conc. 35.1 g/dL (33.0-37.0); Mean Corpuscular Volume 86.4 fL (80.0-94.0); Nucleated Red Blood Cells % 0 % (-); Platelet Count 173 10^3/uL (130-400); Red Cell Dist. Width 13.4 % (11.5-14.5)
[2025-06-24 06:56] LABS: Blood Urea Nitrogen 29 mg/dl (9-20); Calcium 9.1 mg/dl (8.4-10.2); Carbon Dioxide 22 mmol/L (22-30); Chloride 104 mmol/L (98-107); Estimated Creatinine Clearance 32 ml/min; Glucose 127 mg/dl (70-99); Potassium 4.3 mmol/L (3.5-5.1); Sodium 132 mmol/L (135-145); eGFR 45.06
[2025-06-24] MEDS: TOPROL XL 75 MG PO (07:48)
[2025-06-24] MEDS: ZESTRIL 20 MG PO ×2 (07:49→19:59)
[2025-06-24] MEDS: APRESOLINE 50 MG PO ×2 (07:49→21:08)
[2025-06-24] MEDS: OCUVITE SOFTGEL 1 CAP PO ×2 (07:49→19:59)
[2025-06-24] MEDS: PLAVIX 75 MG PO (07:49)
[2025-06-24] MEDS: PROTONIX 40 MG PO (07:50)
[2025-06-24] MEDS: CARDIZEM CD 180 MG PO ×2 (07:50→19:59)
[2025-06-24] MEDS: LOW STRENGTH ASPIRIN 81 MG PO (07:50)
[2025-06-24] MEDS: IMDUR (EXTENDED RELEASE) 60 MG PO ×2 (07:50→19:59)
[2025-06-24 08:03] LABS: Glucose - Point of Care 154 mg/dl (70-99)
--- NOTE | 2025-06-24 08:44 | W.PN.CD ---
Today's Communication / Plan
-
CATH today
Eliquis on hold
IF NO INTERVENTION REQUIRED THEN RESUME ELIQUIS AND PLAVIX AND STOP ASA)
BP improving with titration of hydralaizne
.
Impression / Plan
-
84-year-old male known to me from previous office visits.History of coronary artery bypass grafting 1993 with stenting of SVG to OM 11/2020, in-stent stenosis and stenting of SVG to OM 05/15/2025, paroxysmal atrial fibrillation, chronic
anticoagulation with Eliquis Medtronic pacemaker,TAVR Medtronic/CoreValve evolute Pro . Patient presents with left upper chest shoulder and left upper arm discomfort which he thinks is angina. Patient had similar symptoms prior to his last
cardiac catheterization. Although he initially felt he had some improvement postprocedure he has still had some symptoms since his most recent coronary stenting. Plan was for continued medical therapy there were some discussions regarding Ranexa
but based on his creatinine clearance and his concern regarding his renal function we opted to not use this medication. Instead we continued with nitrates and his other medications. In addition he had his left shoulder injected by [facility] with
no improvement of intermittent upper chest and shoulder discomfort. He states he is continued to have some symptoms when he has increased exertion symptoms are relieved with rest. More recently he thinks he has had symptoms with less activity
since his last visit including yesterday he went to go get something in his house and he had discomfort in his left upper chest near shoulder, his shoulder left upper arm some radiation up to the neck. He states he took a nitroglycerin without much
improvement and then symptoms resolved after about 15 minutes. He states he had some light discomfort this morning as well. Despite the above symptoms his troponins have remained negative. He is hypertensive this morning. He has been compliant
with medical therapy and denies any other new symptoms.
Past medical history
Coronary bypass grafting MCKEE to LAD, RCA and diagonal grafts are occluded
Stenting of the SVG to OM 10/2020
Stenting of in-stent stenosis of SVG to OM1 05/15/2025
TAVR/Medtronic
Hypertension
PAF
Pacemaker/Medtronic
Hiatal hernia
Diabetes
Cholecystectomy
Diverticulosis
GERD
Left nephrectomy
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
Chest discomfort. Left shoulder chest and left upper arm discomfort similar to what is described in the past on 1 hand the exertional component is consistent with angina although the troponins have remained negative. Patient has had recent
stenting of SVG to OM. He did not have resolution of all of his symptoms with this procedure may be related to residual branch disease or other factors. Plan was continued medical therapy. Patient's had some increase in frequency of symptoms. He
is significantly hypertensive which may also contribute.
- Continue to optimize medical therapy for CAD
-Troponins negative.
-Issues reviewed with interventional cardiology/Dr. Savage plan for cardiac catheterization this admission. Patient's last dose of Eliquis evening 06/22/25/ Patient will require groin access for cath. cardiac catheterization 06/24/2025. started
aspirin today so the patient is on aspirin and Plavix for procedure. IF NO INTERVENTION REQUIRED THEN RESUME ELIQUIS AND PLAVIX AND STOP ASA)
.
TAVR.. Stable by last echo
.
Pacemaker
.
Coronary artery disease/coronary artery bypass grafting/stenting of SVG to OM1 with most recent procedure 05/15/2025
.
Hypertension. improveing
-Titrate hydralazine for additional blood pressure control
.
Diabetes management as directed by primary team
Physical Exam
Vital Signs/Labs
Vital Signs
Temp Pulse Resp BP Pulse Ox
97.9 F 70 14 147/61 96
06/24/25 07:52 06/24/25 07:52 06/24/25 07:52 06/24/25 07:52 06/24/25 07:52
06/23/25 06/24/25 06/25/25
06:59 06:59 06:59
Actual Weight 81.465 kg 81.964 kg
08/27/25 05:27
06/24/25 05:27
Triglycerides 123 mg/dl (10-149) 06/22/25 04:43
LDL Cholesterol, Calc 51 mg/dl 06/22/25 04:43
VLDL Cholesterol, Calc 24 mg/dl (0-30) 06/22/25 04:43
HDL Cholesterol 28 mg/dl 06/22/25 04:43
06/22/25 06/22/25
00:35 02:06
Knz-Q-Yxzginpsddx Pept 147 Cancelled
LAB Results
06/21/25 06/22/25 06/22/25
21:56 00:35 04:43
Troponin I < 0.012 < 0.012 < 0.012
06/22/25 06/22/25
09:12 16:02
Troponin I < 0.012 Cancelled
Physical Exam
Constitutional: No acute distress
Cardiovascular: Rhythm & rate is regular
Respiratory: Wheeze Absent
GI: Soft
Neuro/Psych: Alert
Data Reviewed
-
Date of Service: June 24, 2025
Medical Decision Making: Reviewed Test Results and Review of Case with other Provider (Dr He)
Medical Tests (PFT, Pathology etc): Report Reviewed by me
Labs: Labs Reviewed by me
[2025-06-24] MEDS: NOVOLOG FLEXPEN-LOW RESISTANCE 1 UNITS SC (10:04)
[2025-06-24] MEDS: XANAX 0.25 MG PO ×2 (10:09→19:59)
[2025-06-24] MEDS: NOVOLOG FLEXPEN-LOW RESISTANCE SC ×2 (11:07→16:54)
[2025-06-24 12:21] LABS: Glucose - Point of Care 179 mg/dl (70-99)
--- NOTE | 2025-06-24 12:29 | W.PN.HOSP.TC ---
Today's Communication/Plan
-
Monitor vital signs
see plan
Cardiac cath today
Assessment / Plan
Assessment / Plan
General: Other (84y M in no acute distress.)
HEENT: Moist mucous membranes and PERRLA
Respiratory: Clear; No Wheezes, Rales or Rhonchi
Cardiac: S1/S2 and Regular Rhythm; No Murmur
GI: Soft, Non Tender, Non Distended and Normal Bowel Sounds
Musculoskeletal: No Edema
Neuro: AO x 3
ASCVD
Unstable Angina
- Patient with months of progressive symptoms and now with chest discomfort occurring at rest.
- EKGis A-V paced. Troponin undetectable
- Continue current CV med regimen with no changes for now. On Eliquis + Plavix s/p most recent GRETEL (05/15/25).
Cardiology following
- Echo 06/22 with preserved EF
- Follow for any new / worsening symptoms. Given patient's symptoms, cardiology decided on cardiac catheterization this admission. Eliquis on hold, last dose 06/22 evening. plan for cardiac cath 06/24. Currently on dual antiplatelet therapy
Benign Hypertension
- Not well-controlled. ? secondary to discomfort or vice versa.
- Continue current med regimen with holding parameters.
hydralazine increased
Hyponatremia
Monitor
DM-II
- Stable. Hold PO medications acutely.
- Follow glucose and cover with SSI as needed.
- A1C 7.3
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
Solitary Kidney s/p Left Nephrectomy
- SCr = 1.5 compared to known baseline of 1.2.
- Creatinine now 1.5
Paroxysmal Atrial Fibrillation
SSS s/p PPM
- Stable. Currently A-V paced.
- Continue current med regimen including metoprolol / diltiazem; Eliquis on hold
DVT Prophylaxis: On Eliquis, on hold for catheterization 06/23
Code Status: Full
Anticipated Discharge: Within 24 hours
Subjective/Interval History
-
Date of Service: June 24, 2025
denies sob
Objective Data
-
Labs:
Laboratory Results
06/24/25
05:27
WBC 6.8
Hgb 12.0 L
Hct 34.2 L
Plt Count 173
Sodium 132 L
Potassium 4.3
Chloride 104
Carbon Dioxide 22
BUN 29 H
Creatinine 1.5 H
Glucose 127 H
Calcium 9.1
Vital Signs:
Vital Signs
Temp Pulse Resp BP Pulse Ox
97.6 F 63 14 120/51 96
06/24/25 11:27 06/24/25 11:27 06/24/25 11:27 06/24/25 11:27 06/24/25 11:27
I&O
06/23/25 06/24/25 06/25/25
06:59 06:59 06:59
Intake Total 1440 / 1440 1140 / 1140 480 / 480
Balance 1440 / 1440 1140 / 1140 480 / 480
--- NOTE | 2025-06-24 16:10 | ITS.CL.CATH ---
[facility] - Catheterization
Cardiac Catheterization
Procedure Report:
CARDIAC CATHETERIZATION REPORT
Date of Procedure: 06/24/2025
Referring: Tulio Victor M.D.
Indication: Recurrent arm discomfort, reminiscent of prior angina, known coronary artery disease status post bypass and recent PCI.
PROCEDURE:
1. Right heart catheterization.
2. Coronary angiography.
3. Left heart catheterization.
4. Bypass angiography.
A total of 45 minutes of procedural/moderate sedation was utilized. An independent medical office secretary was present to assist with and help manage the patient's level of consciousness and physiologic status.
ACCESS:
1. 6 Yemeni left common femoral artery using modified Seldinger technique with a micropuncture kit under ultrasound guidance.
2. 5 Yemeni left common femoral vein using a modified Seldinger technique with a micropuncture kit under ultrasound guidance.
3. 6 Yemeni left radial artery using a modified Seldinger technique.
CATHETERS:
1. 5 Yemeni balloon with.
2. 5 Yemeni JL 4.
3. 5 Yemeni JR4.
4. 5 Yemeni TY.
HEMODYNAMIC DATA
Weight (kg): 82.0
AO (s/d/x, mmHg): 155/57/94
LV (s/x, mmHg): 163/15
PCWP (a/v/x, mmHg): 16/17/15
PA (s/d/x, mmHg): 45/19/28
RV (s/x, mmHg): 45/10
RA (a/v/x, mmHg): 15//
SVC SvO2 (%): 75.5
IVC SvO2 (%): Not obtained.
RA SvO2 (%): Not obtained.
RV SvO2 (%): Not obtained.
PA SvO2 (%): 72.9
SaO2 (%): 96.2
Hbg (g/dL): 13.3
BENNIE
CO (L/min): 5.04
CI (L/min/m2): 2.63
Thermodilution
CO (L/min): Not obtained.
CI (L/min/m2): Not obtained.
TPG (mmHg): 13
PVR (Dos Santos Units): 2.58
SVR (dynes*seconds*cm^-5): 1333
AVO2 Diff (Volume %): 4.21
AV gradient (x, mmHg): 9.89
AV area (cm2): 2.69
MV gradient (x, mmHg): Not obtained.
MV area (cm2): Not obtained.
LEFT VENTRICULOGRAPHY: Not performed.
AORTOGRAPHY: Not performed.
CORONARY ANGIOGRAPHY
Dominance: Right.
Left Main: Bifurcating vessel that is difficult to engage through the TAVR cage. The vessel is patent with flow into the proximal LAD.
LAD: Normal size vessel giving rise to several small diagonals. The vessel is chronically totally occluded in its midportion. The mid and distal LAD are supplied by a patent MCKEE graft.
Ramus: Congenitally absent.
Circumflex: Nondominant vessel giving rise to at least 1 obtuse marginal. The vessel is chronically totally occluded in its proximal margin. OM1 and a lower branch of OM1 are supplied by a patent vein graft.
RCA: Not injected due to inability to cannulate through the TAVR cage. Known to be a dominant vessel that is chronically totally occluded in its proximal margin.
BYPASS GRAFT ANGIOGRAPHY
MCKEE to LAD: Normal size graft with end-to-side anastomosis to the mid LAD. There is no evidence of stenosis or graft degeneration.
SVG to OM1: Normal size graft with end-to-side anastomosis to the upper branch of OM1. Patent stents are visible in the ostium and proximal margin of the graft with no evidence of stenosis or degeneration.
SVG to D1: Flush occluded at its origin.
SVG to RPDA: Flush occluded at its origin.
INTERVENTIONS
None.
Closure Device: 6 Yemeni Angio-Seal for the left common femoral artery, vascular band for the left radial artery, manual pressure for the left common femoral vein.
Radiation dose (mGy): 550
DAP (cm2.Gy): 33.9
Fluoroscopy time (minutes): 24.2
CONCLUSIONS:
1. Right dominant circulation with chronic total occlusion of the mid LAD, proximal circumflex and proximal RCA status post prior bypass (patent MCKEE to LAD, patent SVG to OM1, occluded SVG to D1, occluded SVG to RPDA) and prior PCI to the ostium
of the SVG to OM1 without evidence of in-stent restenosis or new ischemic lesion responsible for the patient's arm pain.
2. Mildly elevated filling pressures (LVEDP = 15 mmHg, PCWP = 15 mmHg at 82.0 kg).
3. Status post TAVR (#26 Medtronic CoreValve Evolut Pro) with normal TAVR gradients (9.89 mmHg).
4. 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
RECOMMENDATIONS:
1. Expectant management after cardiac catheterization via left femoral/radial approach.
2. Limited weight bearing on the left wrist for one week.
3. Continue OMT/GDMT as hemodynamics will tolerate.
4. Aggressive secondary prevention with high-dose, high potency statin. Goal LDL <55.
5. Continue investigation into source of patient's left arm pain.
6. Further cardiac catheterizations likely require dual access in the femoral and left radial positions due to difficulty cannulating the left subclavian artery from a femoral approach.
Copy to: Tulio Victor M.D., Linwood Johnson M.D.
Jaxon He, , FACC, FACP
--- NOTE | 2025-06-24 16:38 | CM ---
Cardiac cath today. Discharge POC: Anticipate home with no needs. Declined PEDRO RN.
[2025-06-24] MEDS: NSS 1000 IV (16:49)
[2025-06-24 16:54] LABS: Glucose - Point of Care 124 mg/dl (70-99)
[2025-06-24] MEDS: APRESOLINE PO (19:58)
[2025-06-24] MEDS: LIPITOR 10 MG PO (21:08)
[2025-06-24 21:29] LABS: Glucose - Point of Care 190 mg/dl (70-99)
[2025-06-25] MEDS: XANAX 0.25 MG PO (03:10)
[2025-06-25 03:12] VITALS: BP 143/50
[2025-06-25 06:00] VITALS: BMI 28.5
[2025-06-25 06:06] LABS: Hematocrit 35.5 % (39.0-52.0); Hemoglobin 12.1 g/dL (13.0-18.0); Mean Corp Hgb Conc. 34.1 g/dL (33.0-37.0); Mean Corpuscular Volume 86.8 fL (80.0-94.0); Nucleated Red Blood Cells % 0 % (-); Platelet Count 171 10^3/uL (130-400); Red Cell Dist. Width 13.4 % (11.5-14.5)
[2025-06-25 06:36] LABS: Blood Urea Nitrogen 27 mg/dl (9-20); Calcium 9.0 mg/dl (8.4-10.2); Carbon Dioxide 23 mmol/L (22-30); Chloride 106 mmol/L (98-107); Estimated Creatinine Clearance 35 ml/min; Glucose 164 mg/dl (70-99); Potassium 4.6 mmol/L (3.5-5.1); Sodium 134 mmol/L (135-145); eGFR 48.95
--- NOTE | 2025-06-25 07:46 | W.PN.CD ---
Today's Communication / Plan
-
- Cardiac catheterization yesterday revealed no new CAD; continue with medical management.
- Left arm pain is secondary to orthopedic etiology as it improved with a steroid injection recently.
- Outpatient follow-up with Cardiology.
Impression / Plan
-
84-year-old male (known to Dr. Victor) with coronary artery bypass grafting 1994 with stenting of SVG to OM 11/2020, in-stent stenosis and stenting of SVG to OM 05/15/2025, paroxysmal atrial fibrillation (on Eliquis), Medtronic pacemaker, and TAVR
(Medtronic/CoreValve evolute Pro admitted with left arm pain.
CAD/left arm pain:
- Cardiac catheterization yesterday revealed no new CAD; continue with medical management.
- Continue Plavix, Imdur/hydralazine, Toprol-XL, and atorvastatin.
- Left arm pain is secondary to orthopedic etiology as it improved with a steroid injection recently.
TAVR - Stable.
.
Pacemaker - Stable.
.
PAF -continue Eliquis.
.
Hypertension - Fairly controlled; continue current medications.
.
Diabetes management as directed by primary team
Physical Exam
Vital Signs/Labs
Vital Signs
Temp Pulse Resp BP Pulse Ox
97.9 F 61 14 143/50 95
06/25/25 03:12 06/25/25 03:12 06/25/25 03:12 06/25/25 03:12 06/25/25 03:12
06/24/25 06/25/25 06/26/25
06:59 06:59 06:59
Actual Weight 81.964 kg 81.306 kg
06/25/25 05:40
06/25/25 05:40
Triglycerides 123 mg/dl (10-149) 06/22/25 04:43
LDL Cholesterol, Calc 51 mg/dl 06/22/25 04:43
VLDL Cholesterol, Calc 24 mg/dl (0-30) 06/22/25 04:43
HDL Cholesterol 28 mg/dl 06/22/25 04:43
06/22/25 06/22/25
00:35 02:06
Gcg-[id number] Pept 147 Cancelled
LAB Results
06/22/25 06/22/25
09:12 16:02
Troponin I < 0.012 Cancelled
Physical Exam
Constitutional: No acute distress and Comfortable
EENT: Anicteric
Cardiovascular: Rhythm & rate is regular, Pedal edema is absent, Systolic murmur present (/) and S1S2 is normal
Respiratory: Respiratory effort normal and Lungs clear to auscul.
GI: Soft
Neuro/Psych: AO x 3
Other: Skin (Warm, dry, intact)
Data Reviewed
-
Date of Service: June 25, 2025
EKG: Tracing Personally Visualized and interpreted (Telemetry: AV paced)
Medical Tests (PFT, Pathology etc): Report Reviewed by me (Cardiac catheterization 06/24/2025: Stable CAD.)
Labs: Labs Reviewed by me
[2025-06-25 07:53] VITALS: BP 112/81
[2025-06-25 08:03] LABS: Glucose - Point of Care 175 mg/dl (70-99)
[2025-06-25] MEDS: NOVOLOG FLEXPEN-LOW RESISTANCE 1 UNITS SC (08:47)
[2025-06-25] MEDS: ZESTRIL 20 MG PO (08:48)
[2025-06-25] MEDS: IMDUR (EXTENDED RELEASE) 60 MG PO (08:49)
[2025-06-25] MEDS: PROTONIX 40 MG PO (08:49)
[2025-06-25] MEDS: ELIQUIS 2.5 MG PO (08:49)
[2025-06-25] MEDS: TOPROL XL 75 MG PO (08:49)
[2025-06-25] MEDS: OCUVITE SOFTGEL 1 CAP PO (08:49)
[2025-06-25] MEDS: PLAVIX 75 MG PO (08:49)
[2025-06-25] MEDS: APRESOLINE 50 MG PO (08:49)
[2025-06-25] MEDS: CARDIZEM CD 180 MG PO (08:49)
[2025-06-25 10:04] VITALS: BMI 28.5
--- NOTE | 2025-06-25 10:55 | PN.CDI ---
CDI
- -
CDI:
Physician Documentation Request
Admit Date: 06/23/25 12:48
Dear Doctor Kevin,
Clinical Indicators:
Patient admitted with chest pain; s/p [facility] 06/24.
06/24 PN, 'JAISON on CKD IIIb...known baseline of 1.2. - Creatinine now 1.5'
Cr/GFR trend:
06/21/25 06/22/25 06/23/25
21:56 04:43 05:26
Creatinine 1.5 H 1.3 1.4 H
eGFR 45.06 53.50 48.95
06/24/25
05:27
Creatinine 1.5 H
eGFR 45.06
Please clarify in the Progress Notes which of the following most accurately represents the patient's renal status:
CKD IIIa only
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
Other, please specify
Criteria for JAISON*
1 Increase in serum creatinine by > or = to 0.3 mg/dL (> or = to 26.5 micromol/L) within 48 hours, OR
2 Increase in serum creatinine to > or = to 1.5 times baseline, which is known or presumed to have occurred within 7 days, OR
3 Urine volume < 0.5 nL/kg/hour for six hours
Stages of Chronic Kidney Disease*
Level Description GFR
G1 Normal or High >90
G2 Mildly decreased 60-89
G3a Mildly to moderately decreased 45-59
G3b Moderately to severely decreased 30-44
G4 Severely decreased 15-29
G5 Kidney failure <15
Use of terms such as suspected, likely, concern for, or probable (associated with a specific diagnosis that is being evaluated, monitored, or treated as if it exists) are acceptable and can be coded in the inpatient setting, when documented at the
time of discharge.
Thank you,
SOLO Garcia RN
CDI Specialist
available via tiger text
Please use your independent medical judgment in providing your response.
*Source: Kidney Disease: Improving Global Outcomes (KDIGO) 2012
[2025-06-25 11:00] VITALS: BP 142/57
--- NOTE | 2025-06-25 11:09 | W.PN.HOSP.TC ---
Addendum entered and electronically signed by Dayne Brown MD 06/25/25 11:24:
CKD stage IIIa
Original Note:
Today's Communication/Plan
-
Monitor vitals
See plan
eliquis
hydralazine
dc today
time of discharge 37minutes
Assessment / Plan
Assessment / Plan
General: Other (84y M in no acute distress.)
HEENT: Moist mucous membranes and PERRLA
Respiratory: Clear; No Wheezes, Rales or Rhonchi
Cardiac: S1/S2 and Regular Rhythm; No Murmur
GI: Soft, Non Tender, Non Distended and Normal Bowel Sounds
Musculoskeletal: No Edema
Neuro: AO x 3
ASCVD
Unstable Angina
- Patient with months of progressive symptoms and now with chest discomfort occurring at rest.
- EKGis A-V paced. Troponin undetectable
- Continue current CV med regimen with no changes for now. On Eliquis + Plavix s/p most recent GRETEL (05/15/25).
Cardiology following
- Echo 06/22 with preserved EF
- Status post cardiac cath, does not appear secondary to heart. Suspect symptoms are secondary to his shoulder. Patient also had elevated blood pressure on this hospitalization so suspect some of it could be from it.
Benign Hypertension
- Not well-controlled. ? secondary to discomfort or vice versa.
- Continue current med regimen with holding parameters.
hydralazine increased
Hyponatremia
Monitor
DM-II
- Stable. Hold PO medications acutely.
- Follow glucose and cover with SSI as needed.
- A1C 7.3
JASION on CKD IIIb
Solitary Kidney s/p Left Nephrectomy
- SCr = 1.5 compared to known baseline of 1.2.
- Creatinine now 1.4
Paroxysmal Atrial Fibrillation
SSS s/p PPM
- Stable. Currently A-V paced.
- Continue current med regimen including metoprolol / diltiazem; Eliquis
DVT Prophylaxis: eliquis
Code Status: Full
Anticipated Discharge: Today
Subjective/Interval History
-
Date of Service: June 25, 2025
denies pain
Objective Data
-
Labs:
Laboratory Results
06/25/25
05:40
WBC 6.6
Hgb 12.1 L
Hct 35.5 L
Plt Count 171
Sodium 134 L
Potassium 4.6
Chloride 106
Carbon Dioxide 23
BUN 27 H
Creatinine 1.4 H
Glucose 164 H
Calcium 9.0
Vital Signs:
Vital Signs
Temp Pulse Resp BP Pulse Ox
97.6 F 73 14 112/81 96
06/25/25 07:53 06/25/25 08:48 06/25/25 07:53 06/25/25 08:48 06/25/25 07:53
I&O
06/24/25 06/25/25 06/26/25
06:59 06:59 06:59
Intake Total 1140 / 1140 480 / 480 1200 / 1200
Output Total 650 / 650
Balance 1140 / 1140 480 / 480 550 / 550
--- NOTE | 2025-06-25 11:31 | W.DCSUMMARY ---
Discharge Summary
Discharge Data
Date of Admission: 06/23/25
Date of Discharge: 06/25/25
-
Pending Results: No
Hospital Course
84-year-old male with past medical history of CAD, hypertension, diabetes mellitus, JAISON on CKD, paroxysmal atrial fibrillation, sick sinus syndrome status post pacemaker came to the hospital with unstable angina. Patient was seen by cardiology
through hospitalization. Cardiology performed cardiac catheterization which did not show any signs of worsening CAD. It was determined the patient symptoms could likely be secondary to uncontrolled hypertension and possible related to shoulder
arthritis. His symptoms continue to improve over time. Hydralazine was increased on this hospitalization. Since his symptoms were improving, he was then discharged home with instructions to follow-up with all his physicians outpatient.
Discharge Plan
-
Patient Disposition: Home (Routine Discharge)
Discharge Diagnosis/Procedures: Angina
s/p cardiac catheterization
HTN
Condition: Fair
Diet: As tolerated
Activity: As tolerated
Driving Restrictions: As prior to admission
Bathing Restrictions: None
Stand Alone Forms: DC Instructions- Cath/EP Lab
Referrals:
Linwood Johnson MD [Family Provider, Family Practice] - in less than 1 week
Ximena Polo NP [Specified Professional Personl, Cardiology] - 07/14/25 1:20 pm
Tulio Victor MD [Active, Cardiology] - 09/01/25 1:00 pm
Prescriptions:
New
hydralazine 50 mg Tablet
50 mg PO TID Qty: 90 0RF
Continued
simvastatin 20 MG tablet
20 mg PO HS
pantoprazole 40 MG tablet,delayed release (DR/EC)
40 mg PO DAILY Qty: 90 3RF
glimepiride 2 mg Tablet
2 mg PO BID
PreserVision AREDS 2,148 mcg-113 mg-45 mg-17.4mg Tablet
1 tab PO BID
nitroglycerin 0.4 MG tablet, sublingual
0.4 mg sublingual [id number] PRN (Reason: chest pain)
Eliquis 5 mg Tablet
5 mg PO BID Qty: 60 1RF
isosorbide mononitrate 60 mg Tablet Extended Release 24 Hr
60 mg PO BID
diltiazem HCl 180 mg Tablet Extended Release 24 Hr
180 mg PO BID
metoprolol succinate 50 mg tablet extended release 24 hr
75 mg PO DAILY
lisinopril 20 mg tablet
20 mg PO BID
clopidogrel [Plavix] 75 mg tablet
75 mg PO DAILY Qty: 90 1RF
Changed
alprazolam 0.25 MG tablet
0.25 mg PO TID PRN (Reason: anxiety ) Qty: 0 0RF
Discontinued
hydralazine 10 mg tablet
25 mg PO TID
Discharge Orders:
Discharge Patient (As Directed); Ordered 06/25/25
Ordered By: Dayne Brown
Discharge Date and Time
Discharge Date/Time: 06/25/25 12:54
Print Language: TANZANIAN
[2025-06-25 11:33] LABS: Glucose - Point of Care 224 mg/dl (70-99)
[2025-06-25] MEDS: NOVOLOG FLEXPEN-LOW RESISTANCE 2 UNITS SC (12:07)
--- NOTE | 2025-06-25 12:43 | CM ---
Home with spouse today no needs, lives with spouse, IMM completed.
Plan; Home with spouse no needs.
== END 2025-06-25 12:54 | disposition home or self-care (01) | DRG 287 ==
LOC: 3 WEST ACU 12:48
PROVIDERS: Internal Medicine Cardiovascular Disease; Student in an Organized Health Care Education/Training Program; ADMITTING PHYSICIAN Hospitalist; ATTENDING PHYSICIAN Internal Medicine; EMERGENCY PHYSICIAN Student in an Organized Health Care Education/Training Program; FAMILY PHYSICIAN Family Medicine; OTHER PHYSICIAN Internal Medicine Cardiovascular Disease
PROC: B2131ZZ Fluoroscopy of Multiple Coronary Artery Bypass Grafts using Low Osmolar Contrast (ICD-10-PCS; 2025-06-24)
PROC: 4A023N8 Measurement of Cardiac Sampling and Pressure, Bilateral, Percutaneous Approach (ICD-10-PCS; 2025-06-24)
PROC: B2111ZZ Fluoroscopy of Multiple Coronary Arteries using Low Osmolar Contrast (ICD-10-PCS; 2025-06-24)
DX: I25.119 Atherosclerotic heart disease of native coronary artery with unspecified angina pectoris (principal); N17.9 Acute kidney failure, unspecified; E87.1 Hypo-osmolality and hyponatremia; I25.810 Atherosclerosis of coronary artery bypass graft(s) without angina pectoris; N18.30 Chronic kidney disease, stage 3 unspecified; I48.0 Paroxysmal atrial fibrillation; I12.9 Hypertensive chronic kidney disease with stage 1 through stage 4 chronic kidney disease, or unspecified chronic kidney disease; E11.22 Type 2 diabetes mellitus with diabetic chronic kidney disease; Z79.84 Long term (current) use of oral hypoglycemic drugs; Z95.0 Presence of cardiac pacemaker; I49.5 Sick sinus syndrome; Z79.899 Other long term (current) drug therapy; F41.9 Anxiety disorder, unspecified; Z79.01 Long term (current) use of anticoagulants; Z85.828 Personal history of other malignant neoplasm of skin; E66.9 Obesity, unspecified; Z68.28 Body mass index [BMI] 28.0-28.9, adult; E78.00 Pure hypercholesterolemia, unspecified; I25.82 Chronic total occlusion of coronary artery; K21.9 Gastro-esophageal reflux disease without esophagitis; Z79.02 Long term (current) use of antithrombotics/antiplatelets; Z87.891 Personal history of nicotine dependence; Z90.5 Acquired absence of kidney; Z95.2 Presence of prosthetic heart valve
CPT/HCPCS: 71046; 80048; 80053; 80061; 82962; 83036; 83880; 84484; 85025; 85027; 93005; 93306; 93461; 99152; 99153; 99285; C1760; C1894; Q9967

== ENCOUNTER → 2025-07-27 08:53 | Outpatient (REF) | payer OTHER, SELFPAY | LOC: HWRAD 08:53 | PROVIDERS: ATTENDING PHYSICIAN Nurse Practitioner; FAMILY PHYSICIAN Family Medicine | DX: M79.602 Pain in left arm (principal) | CPT/HCPCS: 93931 ==